=== PATIENT | female | born 1945 | race Caucasian/White ===

== ENCOUNTER 2019-06-27 08:47 | Emergency (ER) | payer MEDICARE, OTHER, SELFPAY ==
[2019-06-27 08:49] VITALS: BP 117/70; PULSE 99; RESP 16; TEMP 36.2; O2SAT 96; BMI 25.7
--- NOTE | 2019-06-27 09:05 | RAD_ITS ---
STUDY: X-RAY - RIGHT ANKLE REASON FOR EXAM: Female, 73 years old. Leg pain TECHNIQUE: 3 view(s) of the ankle. COMPARISON: None. FINDINGS: Normal visualized distal tibia and fibula. Normal medial and lateral malleoli. Normal tibiotalar articulation and ankle mortise. Normal visualized talus and calcaneus. The visualized subtalar, talonavicular, calcaneocuboid and tarsal articulations are normal. Nonspecific lateral soft tissue swelling RAD/Ankle min 3 Views IMPRESSION: Normal x-ray examination of the ankle. Nonspecific lateral soft tissue swelling Electronically Signed: Dominic Mitchell MD at 9:22 EST , Service support ,
--- NOTE | 2019-06-27 09:06 | ED.DCSUM_ITS ---
History of Present Illness Chief Complaint: Lower Extremity Injury Informant: Patient Onset: Days Context: Gradual Onset Timing: Continuous Current Severity: Moderate Maximum Severity: Moderate Narrative: Patient is a 73-year-old female with history of neuropathy and diabetes mellitus presenting with right ankle pain and swelling. Patient states on , 3 days ago, her foot slightly slipped at the grocery store. She did start having swelling on the lateral aspect of her ankle. She notes that she had been using elevation and rest and the swelling/pain had improved. Then last night when she was at the [facility] she had a sharp stabbing pain behind her ankle that radiated up. After that she has had significantly more pain of the ankle. The swelling has increased. Patient states she has peripheral neuropathy but that is unchanged. Pain is worse when she tries to walk. She placed CBD oil on the ankle with no significant relief. She states she cannot take Tylenol, Motrin or any other [id number] medications. She has been wrapping her ankle. She has pain with movement but is still able to walk. She denies any other complaints at this time. Past Medical History - Allergies and Home Meds Allergies/Adverse Reactions: Allergies bee venom protein (honey bee) Allergy (Verified 06/27/19 08:56) Rash Iodine and Iodide Containing Produc Allergy (Verified 06/27/19 08:56) Unknown lisinopril Allergy (Verified 06/27/19 08:56) Rash Penicillins Allergy (Verified 06/27/19 08:56) Unknown shellfish derived Allergy (Verified 06/27/19 08:56) Other ciprofloxacin [From Cipro] Adverse Reaction (Verified 06/27/19 08:56) Diarrhea clindamycin Adverse Reaction (Verified 06/27/19 08:56) Diarrhea glimepiride Adverse Reaction (Verified 06/27/19 08:56) Other MAKES ME DRUNK Sulfa (Sulfonamide Antibiotics) Adverse Reaction (Verified 06/27/19 08:56) Diarrhea Primary Care Physician: Aaron Harper MD [Primary Care Provider] - Past Medical History: - - Diabetes, neuropathy, CKD Surgical History: noncontributory Review of Systems All systems negative except as indicated Musculoskeletal: Reports: - - Right ankle pain and swelling Physical Exam Vital Signs/Narrative: Vital Signs Temp Pulse Resp BP Pulse Ox 06/27/19 08:49 97.2 F L 99 16 117/70 96 Inital Vital Signs reviewed: Yes General: Well nourished, Well developed, No Acute Distress Head: Normocephalic, Atraumatic Eyes: Perrl, EOMI ENT: Moist mucous membranes, No rhinorrhea Neck: Supple, Nontender Cardiovascular: Regular rate, Regular rhythm, - - 2+ bilateral DP pulses Respiratory: No distress Back: Nontender, Normal Inspection Extremities: Tenderness - Tender to palpation of the right lateral malleolus most pronounced at the inferior aspect with associated edema, - - Normal Cisneros test, no tenderness palpation at the base of the fifth and fourth metatarsals, no obvious deformity, no tenderness palpation at the fibular head. Negative for: Calf Tenderness Skin: Normal color, No rash Neurological: Alert, Oriented x3, Cranial nerves II-XII grossly intact, Normal Strength, Normal Sensation, - - Normal plantar and dorsiflexion, mild resting tremor Psychological: Normal affect, Normal Mood Diagnostic/Tx/Re-eval Clinical Impression(s) from Imaging Studies Ankle X-Ray 06/27/19 09:05 IMPRESSION: Normal x-ray examination of the ankle. Nonspecific lateral soft tissue swelling Electronically Signed: Dominic Mitcehll MD at 9:22 EST , Service support , - Medical Decision Making She is evaluated for right ankle pain and swelling. She had an injury 3 days ago. The pain is slightly improved yesterday but was worse today. It is worse when she tries to walk or dorsiflex her foot. Achilles tendon mechanism appears to be intact at the bedside. She does not have any significant tenderness over the Achilles tendon. She does have a lot of tenderness over the lateral malleolus as well as soft tissue swelling. No deformity. X-ray does not show any acute process. I suspect patient's pain is likely from her edema, likely recent strain as well as her chronic neuropathy. Patient states that she cannot have any medication for pain including Tylenol and Motrin. Her pain is not too severe and she is able to ambulate so I do not think she requires something stronger like [place] or Percocet. She is neurovascular intact. She is placed in an air stirrup for support and counseled on rice therapy. She is instructed to follow-up with her primary care provider if this worsens or does not improve within the next few days. Patient is counseled on signs and symptoms requiring return to the emergency room. Patient verbalizes agreement and understand this plan. Patient discharged home in stable and improved condition. ED Disposition - Plan for ED Patient: Disposition: Home or Assisted Living Diagnosis: Right ankle sprain Instructions: Sprain, Ankle, with X-Ray Referrals: Aaron Harper MD [Primary Care Provider] - Additional Instructions: If no improvement, follow-up at your primary care office this week. Use rice therapy: rest, ice, compression and elevation. You can use topical creams for pain. Return if your symptoms worsen or progress.
== END 2019-06-27 10:09 | disposition home or self-care (01) ==
PROVIDERS: Emergency Provider Emergency Medicine; Family Provider Family Medicine; PCP Family Medicine
DX: S93.401A Sprain of unspecified ligament of right ankle, initial encounter (principal); E11.40 Type 2 diabetes mellitus with diabetic neuropathy, unspecified; E11.22 Type 2 diabetes mellitus with diabetic chronic kidney disease; N18.9 Chronic kidney disease, unspecified; W18.40XA Slipping, tripping and stumbling without falling, unspecified, initial encounter; Y93.01 Activity, walking, marching and hiking; Y92.512 Supermarket, store or market as the place of occurrence of the external cause; Y99.8 Other external cause status
CPT/HCPCS: 73610; 99283

== ENCOUNTER 2019-10-22 00:57 | Emergency (ER) | payer MEDICARE, OTHER, SELFPAY ==
[2019-08-20 08:59] VITALS: BMI 25.2
[2019-10-22 00:59] VITALS: BP 158/61; PULSE 66; RESP 18; TEMP 36.7; O2SAT 98; BMI 23.8
--- NOTE | 2019-10-22 01:03 | CT_ITS ---
HISTORY: LEFT SIDE FLANK PAIN. H/O KIDNEY STONES. STAGE 3 CHRONIC KIDNEY FAILURE. SX/ LINDSAY. ADDITIONAL HISTORY: None provided. TECHNIQUE: CT images were obtained of the abdomen and pelvis without IV contrast. Enteric contrast was not given. Number of images including paperwork: [id number]. A radiation dose optimization technique was used for this scan. COMPARISON: None FINDINGS: Evaluation of the abdominopelvic organs is limited in the absence of contrast. LOWER THORAX: No consolidation or pleural effusion. Mild linear basilar atelectasis versus scarring. Coronary calcification. LIVER: Cirrhosis. GALLBLADDER: No radiopaque calculi. BILE DUCTS: No significant biliary dilatation. SPLEEN: Unremarkable. PANCREAS: Unremarkable. ADRENAL GLANDS: Unremarkable. KIDNEYS/URETERS: Mild left hydronephrosis secondary to a 1-2 mm proximal ureteral calculus. Left perinephric fluid/stranding may be related to obstruction; correlate for superimposed infection. BOWEL: No bowel obstruction. No significant bowel wall thickening. No localized inflammation. APPENDIX: Normal. FREE FLUID: No significant free fluid. FREE AIR: None. LYMPH NODES: No pathologic appearing adenopathy. PERITONEUM, RETROPERITONEUM AND MESENTERY: Otherwise unremarkable. VASCULATURE: Atherosclerotic calcification. Ectatic infrarenal abdominal aorta, 2.9 x 2.6 cm Ectatic right distal common iliac artery measuring 18 mm. ABDOMINAL WALL: Unremarkable. PELVIS: Unremarkable bladder. 3.3 cm left ovarian cyst. Hysterectomy. OSSEOUS AND SOFT TISSUE STRUCTURES: No acute skeletal findings. Degenerative changes. CT/Abdomen/Pelvis without Cont IMPRESSION: 1. Obstructing left proximal ureteral calculus with mild hydronephrosis. Perinephric fluid/stranding may be related to obstruction; correlate for superimposed infection. 2. Cirrhosis. 3. Left ovarian cyst. 4. Additional findings above. Individualized dose optimization techniques were used for this CT. at 0224 Reported and signed by: Erica Soares MD Electronically Signed: Erica Soares MD at 2:24 EST Tel , Service support ,
[2019-10-22] MEDS: 0.9% Normal Saline 1,000 ML 1000 ML IV (01:13)
[2019-10-22] MEDS: Ondansetron 4 MG/2 ML Vial IV (01:13)
[2019-10-22] MEDS: Morphine 4 MG/ML Syringe IV (01:13)
[2019-10-22 01:20] LABS: Absolute Lymphocyte Count 2.36 X10^3/uL (0.83-4.51); Absolute Neutrophil Count 5.4 X10^3/uL (2.0-7.7); Basophil# 0.05 X10^3/uL; Basophil% 0.6 % (0-1); Eosinophil# 0.01 X10^3/uL; Eosinophils% 0.1 % (0-5); Hematocrit 37.1 % (37-47); Hemoglobin 11.9 g/dL (12.0-15.0); Lymphocyte # 2.36 X10^3/ul (4.0); Lymphocyte % 27.5 % (19-41); Mean Corp Hgb Conc 32.1 g/dL (32-36); Mean Corpuscular Volume 87.3 fL (81-99); Mean Platelet Vol. 10.8 fl (6.2-12.0); Monocyte# 0.69 X10^3/uL; Monocyte% 8.1 % (0-10); NRBC Flagged by Analyzer 0 % (0-5); Neutrophil # 5.42 X10^3/uL (2.7-7.7); Neutrophil % 63.2 % (47-70); Platelet Count 158 K/mm3 (150-450); RBC Distribution Width CV 12.6 % (11.6-14.6); RBC Distribution Width SD 40.3 fl (35.1-43.9); Red Blood Count 4.25 M/mm3 (4.2-5.4); White Blood Count 8.6 K/mm3 (4.4-11.0)
[2019-10-22 01:33] LABS: Anion Gap 5 (5-15); BUN 52 mg/dL (7-18); BUN/Creat Ratio 38.2 RATIO (10-20); Calcium,Total 9.7 mg/dL (8.5-10.1); Chloride 106 mmol/L (98-107); Creatinine, Serum 1.36 mg/dL (0.55-1.02); EST Glomerular Filtration Rate 41 mL/min (>60); Est Glom Filt Rate - Afr Amer 49 mL/min (>60); Estimated Creatinine Clearance 32.29 ml/min; Glucose 121 mg/dL (74-106); Potassium 3.6 mmol/L (3.5-5.1); Sodium Level 139 mmol/L (136-145)
[2019-10-22 02:25] LABS: Bacteria 0 SEEN /hpf (None Seen); Color, Urine Yellow (Yellow); Glucose, Dipstick Normal (Normal); Ketone-Dipstick Negative (Negative); Leukocyte Esterase-Dipstick Negative /ul (Negative); Mucous, Urine 0 SEEN /hpf (<or=2+); Nitrite-Dipstick Negative (Negative); Occult Blood-Urine 250 /ul (Negative); Protein-Dipstick 30 mg/dl (Negative); Urine Bilirubin Dipstick Negative (Negative); Urine Clarity Clear (Clear); Urine Urobilinogen Normal (Normal)
[2019-10-22 02:34] LABS: Red Blood Cells-Urine 50-100 SEEN /hpf (0-5)
[2019-10-22 02:35] LABS: Squamous Epithelial Cells - UA 0-5 SEEN /hpf (5-10); White Blood Cells 0 SEEN /hpf (0-5)
--- NOTE | 2019-10-22 02:50 | ED.DCSUM_ITS ---
- ER Visit Summary Date of Service: 10/22/19 Chief Complaint: Left side kidney stone History of Present Illness: The patient is a 73 F with left side back pain concerning for kidney stone. This started suddenly, prior to arrival. She has a history of kidney stones, years ago. Denies bleeding or other urinary symptoms. Denies any other associated issues. Patient also has a history of hypertension, chronic kidney disease, and cirrhosis of the liver. Physical Examination: Afebrile and vital signs unremarkable. Left CVA tenderness. Abdomen otherwise soft and nontender. Skin appears normal. Test Results: Hemoglobin 11.9. BUN 52 and creatinine 1.36. Glucose 121. Urinalysis shows blood but no infection. CT shows a 1 to 2 mm left proximal ureter stone with obstruction, 3.3 cm left ovarian cyst, cirrhosis, and other chronic/incidental findings. Emergency Department Course and Treatment: Patient treated with fluids, morphine, and Zofran. She cannot take anti-inflammatories. On reevaluation, the patient is feeling better. Pain is 3 out of 10. I suspect her symptoms are related to the ureter stone. Patient will be referred to urology for follow-up. She was given a urine strainer. Will prescribe [place] and Zofran. Patient will also follow-up with her PCP regarding her ovarian cyst and her chronic conditions such as kidney disease and cirrhosis. Treatment Plan: As above Disposition: Discharge Impression: 1. Left ureteral colic 2. Left ovarian cyst 3. Cirrhosis 4. Chronic kidney disease This note was generated with Visualaseation software. It may contain incorrect words, spelling, and punctuation that were not noted in review of the chart prior to signing ED Disposition - Plan for ED Patient: Referrals: Aaron Harper MD [Primary Care Provider] -
[2019-10-22] MEDS: HYDROcodone Bitartrate/Apap 5/325 Tablet PO (02:52)
--- NOTE | 2019-10-22 02:54 | DCINST.ED_ITS ---
ED Disposition - Plan for ED Patient: Instructions: KIDNEY STONE w/ Colic Prescriptions: Hydrocodone Bitart/Apap 5-325 [Clarissa 5MG-325MG] 1 tab PO Q6H PRN PRN 3 Days #12 tab PRN Reason: Pain Prescription Printed Ondansetron [Zofran Odt] 4 mg PO Q8H PRN PRN #10 tab PRN Reason: Nausea Prescription Printed Referrals: Aaron Harper MD [Primary Care Provider] - Moiz Jimenez MD [STAFF PHYSICIAN] -
[2019-10-22 03:05] VITALS: BP 154/71; PULSE 87; RESP 16; O2SAT 98
== END 2019-10-22 03:06 | disposition home or self-care (01) ==
PROVIDERS: Emergency Provider Emergency Medicine; PCP Family Medicine
DX: N20.1 Calculus of ureter (principal); N83.202 Unspecified ovarian cyst, left side; K74.60 Unspecified cirrhosis of liver; I12.9 Hypertensive chronic kidney disease with stage 1 through stage 4 chronic kidney disease, or unspecified chronic kidney disease; N18.9 Chronic kidney disease, unspecified; Z72.0 Tobacco use; Z87.442 Personal history of urinary calculi; Z79.899 Other long term (current) drug therapy
CPT/HCPCS: 74176; 80048; 81001; 85025; 96374; 99284; J7030; J2405

== ENCOUNTER → 2019-10-28 | Outpatient (CLI) | payer MEDICARE, OTHER, SELFPAY ==
[2019-10-22 00:59] VITALS: BMI 23.8
--- NOTE | 2019-10-28 08:44 | CDU_ITS ---
Reason For Study: vertigo Rt. Velocities/BP Lt. Velocities/BP Prox CCA 54.2/14.6 cm/sec. Prox CCA 69.9/19.4 cm/sec. Mid CCA 64.0/14.6 cm/sec. Mid CCA 67.7/15.0 cm/sec. Dist CCA 48.7/12.4 cm/sec. Dist CCA 73.2/13.9 cm/sec. Prox ICA 58.6/15.7 cm/sec. Prox ICA 136.3/15.8 cm/sec. Mid ICA 57.5/16.8 cm/sec. Mid ICA 101.6/21.3 cm/sec. Dist ICA 80.6/21.2 cm/sec. Dist ICA 71.5/21.4 cm/sec. Rt. ICA/CCA = 1.3. Lt. ICA/CCA = 2.0. Prox ECA 112.1/11.4 cm/sec. Prox ECA 192.4/5.8 cm/sec. Rt. Vert. 56.7/10.6 cm/sec. Lt. Vert. 59.2/14.8 cm/sec. Right Extracranial There is heterogeneous, irregular atherosclerotic plaque noted in the right common carotid artery. There is heterogeneous, irregular atherosclerotic plaque noted in the right internal carotid artery. There is heterogeneous, irregular atherosclerotic plaque noted in the right external carotid artery. Antegrade flow is noted in the right vertebral artery. Left Extracranial There is heterogeneous, irregular atherosclerotic plaque noted in the left common carotid artery. There is heterogeneous, irregular atherosclerotic plaque noted in the left internal carotid artery. There is heterogeneous, irregular atherosclerotic plaque noted in the left external carotid artery. Antegrade flow is noted in the left vertebral artery. Procedure Carotid Duplex 39785. The exam was diagnostic. Exam performed in department. Interpretation Summary Irregular plague at the proximal right internal and external carotid arteries <50% stenosis right internal carotid <50% stenosis right external carotid Irregular calcific plague at the proximal left internal and external carotids 50-69% stenosis left internal carotid <50% stenosis left external carotid Patent, antegrade vertebrals bilaterally Ordering Physician: Jimbo Zepeda Performed By: Tereso Hansen RVT
== END | disposition home or self-care (01) ==
PROVIDERS: PCP Family Medicine; Referring Provider Nurse Practitioner Family; Visit Provider Nurse Practitioner Family
DX: I65.23 Occlusion and stenosis of bilateral carotid arteries (principal); N20.1 Calculus of ureter
CPT/HCPCS: 87086; 87088; 93880

== ENCOUNTER → 2019-11-09 | Outpatient (CLI) | payer MEDICARE, OTHER, SELFPAY ==
[2019-10-22 00:59] VITALS: BMI 23.8
--- NOTE | 2019-11-09 11:00 | CT_ITS ---
STUDY: CT ABDOMEN AND PELVIS WITHOUT CONTRAST REASON FOR EXAM: Female, 74 years old. LLQ PAIN. UTERUS REMOVED BUT STILL HAS OVARIES RADIATION DOSAGE (If Supplied By Facility): CTDIvol = ( 6.32 ) mGy, DLP = ( 293.78 ) mGycm TECHNIQUE: Transaxial images were obtained from the dome of the diaphragm to the symphysis pubis without oral contrast, and without intravenous contrast. Sagittal and coronal images were reconstructed. Individualized dose optimization techniques were used for this CT. COMPARISON: Comparison is made with prior examination dated October 22, 2019. FINDINGS: Stable increased linear markings at the left lung base suggestive of scarring. Coronary artery calcification. Normal liver. Normal gallbladder and extrahepatic biliary system. Normal spleen. Normal pancreas. Normal bilateral adrenal glands. Normal right kidney. Normal left kidney. Normal visualized stomach. Normal small intestine. Normal colon. The appendix is visualized and appears normal. There is diffuse atherosclerotic calcification of the abdominal aorta and major visceral branches, without a demonstrated aneurysm. Normal inferior vena cava. Normal retroperitoneum. Normal urinary bladder. There is absence of the uterus consistent with a prior hysterectomy. There is a 3.7 cm x 3.2 cm cystic density in the left ovary. The medial wall is thickened and irregular. A neoplastic process should be ruled out. Normal abdominal wall. There are diffuse degenerative changes of the visualized lumbar spine. CT/Abdomen/Pelvis without Cont IMPRESSION: Stable 3.7 cm x 3.2 cm cystic density in the left ovary. The medial wall is slightly thickened and irregular. Correlation with ultrasound is recommended. The previously seen left-sided hydronephrosis has resolved. Electronically Signed: Kamlesh Rhodes, at 11:38 EDT , Service support ,
== END | disposition home or self-care (01) ==
LOC: CT 10:57
PROVIDERS: PCP Family Medicine; Referring Provider Urology; Visit Provider Urology
DX: R10.32 Left lower quadrant pain (principal)
CPT/HCPCS: 74176

== ENCOUNTER → 2019-11-11 | Outpatient (CLI) | payer MEDICARE, OTHER, SELFPAY ==
[2019-10-22 00:59] VITALS: BMI 23.8
[2019-11-15 13:09] LABS: Cancer Antigen 125 15.3 U/mL (0.0-38.1)
== END | disposition home or self-care (01) ==
LOC: LABSPEC 13:31
PROVIDERS: PCP Family Medicine; Visit Provider Obstetrics & Gynecology
DX: N83.202 Unspecified ovarian cyst, left side (principal); R10.32 Left lower quadrant pain; Z90.710 Acquired absence of both cervix and uterus
CPT/HCPCS: 86304

== ENCOUNTER → 2020-02-16 | Outpatient (CLI) | payer MEDICARE, OTHER, SELFPAY ==
[2020-01-20 09:24] VITALS: BMI 22.3
[2020-02-18 00:50] LABS: Cancer Antigen 125 16.5 U/mL (0.0-38.1)
== END | disposition home or self-care (01) ==
LOC: WOBLAB 11:04
PROVIDERS: PCP Family Medicine; Visit Provider Obstetrics & Gynecology
DX: N83.202 Unspecified ovarian cyst, left side (principal)
CPT/HCPCS: 36415; 86304

== ENCOUNTER 2020-04-07 21:30 | Emergency (ER) | payer MEDICARE, OTHER, SELFPAY ==
[2020-01-20 09:24] VITALS: BMI 22.3
[2020-04-07 21:31] VITALS: BP 179/78; PULSE 71; RESP 16; TEMP 36.3; O2SAT 97; BMI 21.1
--- NOTE | 2020-04-07 21:43 | RAD_ITS ---
STUDY: X-RAY - RIGHT FOOT CLINICAL: Female, 74 years old. PT DROPPED A METAL CHAIR ON HER RIGHT FOOT. PAIN SWELLING AND BLEEDING TO THE TOP LATERAL SIDE OF FOOT. TECHNIQUE: view(s) of the foot. COMPARISON: None. FINDINGS: Normal talus, calcaneus, and tarsal bones. Normal visualized subtalar, talonavicular, calcaneocuboid, tarsal and tarsometatarsal articulations. Normal metatarsi. Normal metatarsophalangeal joint of the great toe. Normal tibial and fibular sesamoid bones. Normal interphalangeal joint of the great toe. Normal phalanges of the great toe. Normal second through fifth metatarsophalangeal joints. Normal interphalangeal joints and phalanges of the lesser toes. Soft tissue swelling. RAD/Foot min 3 Views IMPRESSION: Soft tissue injury without underlying fracture, dislocation or foreign body. Electronically Signed: Brook Lynn MD at 21:57 EDT , Service support ,
--- NOTE | 2020-04-07 22:17 | ED.VIS.LOWEX ---
History of Present Illness Chief Complaint: Lower Extremity Injury Informant: Patient Occurred: Today Mechanism/Context: Injury Context: Sudden Onset Timing: Continuous Quality of Pain: - - sore Location: right foot Current Severity: Mild Maximum Severity: Moderate Worsened by: walking Relieved by: resting Associated Symptoms: Negative for: Parasthesia, Weakness, Loss of Funtion Narrative: Patient states she accidentally dropped a folded up folding chair on her right foot. It swelled and bruised very quickly but she states the pain has not been severe. She has been able to walk. She scraped it and it bled but that is stopped now and she denies any other injury. She is on no anticoagulants. - Past Medical History (1) Anemia Status: Chronic (2) Bilateral carotid artery stenosis Status: Chronic (3) Diabetes mellitus Status: Chronic (4) Essential (primary) hypertension Status: Chronic Past Medical History - Allergies and Home Meds Allergies/Adverse Reactions: Allergies bee venom protein (honey bee) Allergy (Verified 04/07/20 21:33) Rash fluconazole Allergy (Verified 04/07/20 21:33) heart racing Iodine and Iodide Containing Produc Allergy (Verified 04/07/20 21:33) Unknown lisinopril Allergy (Verified 04/07/20 21:33) Rash Penicillins Allergy (Verified 04/07/20 21:33) Unknown shellfish derived Allergy (Verified 04/07/20 21:33) Other ciprofloxacin [From Cipro] Adverse Reaction (Verified 04/07/20 21:33) Diarrhea clindamycin Adverse Reaction (Verified 04/07/20 21:33) Diarrhea glimepiride Adverse Reaction (Verified 04/07/20 21:33) Other MAKES ME DRUNK Sulfa (Sulfonamide Antibiotics) Adverse Reaction (Verified 04/07/20 21:33) Diarrhea Primary Care Physician: Aaron Harper MD [Primary Care Provider] - As Needed Surgical History: noncontributory Lives: Alone Smoking Status: Current every day smoker Review of Systems Musculoskeletal: Reports: Extremity Pain Skin: Reports: Abrasions, Wounds Neurological: Denies: Headache, Weakness, Numbness Physical Exam Vital Signs/Narrative: Vital Signs Temp Pulse Resp BP Pulse Ox 04/07/20 21:31 97.4 F L 71 16 179/78 H 97 Inital Vital Signs reviewed: Yes - Extremity Exam Right Foot: Contusion, Hematoma - With tenderness, dorsum of foot at the peroneal aspect. Overlying superficial minor abrasion with no active bleeding.. Negative for: Deformity, Limited ROM General: Well nourished, Well developed, - - Well-appearing no distress Head: Normocephalic, Atraumatic Skin: Normal color, No rash, Trauma - Contusion/hematoma dorsal right foot. See above. Minor abrasion as well. No other lesions or apparent injuries. Neurological: Alert, Oriented x3, Cranial nerves II-XII grossly intact, Normal Strength, Normal Sensation Psychological: Normal affect, Normal Mood Diagnostic/Tx/Re-eval Clinical Impression(s) from Imaging Studies Foot X-Ray 04/07/20 21:43 IMPRESSION: Soft tissue injury without underlying fracture, dislocation or foreign body. Electronically Signed: Brook Lynn MD at 21:57 EDT , Service support , - Medical Decision Making X-rays are unremarkable. There is no need for repair of anything here, her abrasion was dressed with a bandage and bacitracin, she states she is able to walk okay, given appropriate discharge instructions as well as an ice pack. ED Disposition - Plan for ED Patient: Disposition: Home or Assisted Living Diagnosis: Traumatic hematoma of right foot Instructions: ED FOOT CONTUSION Referrals: Aaron Harper MD [Primary Care Provider] - As Needed
[2020-04-07 22:18] VITALS: BP 140/63; PULSE 60; RESP 16; O2SAT 97
== END 2020-04-07 22:33 | disposition home or self-care (01) ==
PROVIDERS: Emergency Provider Emergency Medicine; PCP Family Medicine
DX: S90.31XA Contusion of right foot, initial encounter (principal); I10 Essential (primary) hypertension; E11.9 Type 2 diabetes mellitus without complications; F17.200 Nicotine dependence, unspecified, uncomplicated; W20.8XXA Other cause of strike by thrown, projected or falling object, initial encounter; Y93.89 Activity, other specified; Y92.89 Other specified places as the place of occurrence of the external cause; Y99.8 Other external cause status
CPT/HCPCS: 73630; 99282

== ENCOUNTER 2020-04-11 12:52 | Inpatient (IN) | payer MEDICARE, OTHER, SELFPAY ==
[2020-04-11 12:54] VITALS: BP 128/63; PULSE 71; RESP 16; TEMP 36.2; O2SAT 96; BMI 21.2
[2020-04-11 13:54] LABS: Absolute Lymphocyte Count 1.54 X10^3/uL (0.83-4.51); Absolute Neutrophil Count 5.6 X10^3/uL (2.0-7.7); Basophil# 0.03 X10^3/uL; Basophil% 0.4 % (0-1); Eosinophil# 0.01 X10^3/uL; Eosinophils% 0.1 % (0-5); Hematocrit 39.8 % (37-47); Hemoglobin 12.8 g/dL (12.0-15.0); Lymphocyte # 1.54 X10^3/ul (4.0); Lymphocyte % 20.1 % (19-41); Mean Corp Hgb Conc 32.2 g/dL (32-36); Mean Corpuscular Hgb 29.2 pg (27.0-32.0); Mean Corpuscular Volume 90.7 fL (81-99); Mean Platelet Vol. 11.6 fl (6.2-12.0); Monocyte# 0.49 X10^3/uL; Monocyte% 6.4 % (0-10); NRBC Flagged by Analyzer 0 % (0-5); Neutrophil # 5.57 X10^3/uL (2.7-7.7); Neutrophil % 72.7 % (47-70); Platelet Count 143 K/mm3 (150-450); RBC Distribution Width CV 13.6 % (11.6-14.6); RBC Distribution Width SD 45.9 fl (35.1-43.9); Red Blood Count 4.39 M/mm3 (4.2-5.4); White Blood Count 7.7 K/mm3 (4.4-11.0)
[2020-04-11 14:08] LABS: Anion Gap 3 (5-15); BUN 34 mg/dL (7-18); BUN/Creat Ratio 27.2 RATIO (10-20); Calcium,Total 9.3 mg/dL (8.5-10.1); Chloride 107 mmol/L (98-107); Creatinine, Serum 1.25 mg/dL (0.55-1.02); EST Glomerular Filtration Rate 45 mL/min (>60); Est Glom Filt Rate - Afr Amer 54 mL/min (>60); Estimated Creatinine Clearance 34.61 ml/min; Glucose 163 mg/dL (74-106); Potassium 4.2 mmol/L (3.5-5.1); Sodium Level 141 mmol/L (136-145)
--- NOTE | 2020-04-11 14:50 | ED.VISSUMM ---
- ER Visit Summary Date of Service: 04/11/20 Chief Complaint: [Redness and swelling to right foot] History of Present Illness: The patient is a 74 F [presents to the emergency department with an injury to the right foot that occurred 4 days ago. Patient states that she dropped a metal chair on her foot 4 days ago and was seen in the emergency department where she had x-rays that did not show any fractures. Patient states that subsequently the foot is become red and swollen and quite painful. Patient was seen in urgent care yesterday and started on doxycycline because she has multiple drug allergies to antibiotics. Patient had the area of erythema outlined in marker and now it has spread beyond the outline. Patient was told to come to the emergency department if that were to happen. Patient continues to have severe pain with walking. She denies fevers or chills.] Physical Examination: [HEENT-PERRLA, EOMI. Cranial nerves II through XII grossly intact. TMs clear. Mucous membranes moist. No adenopathy. Cardiovascular-regular rate and rhythm without murmur or ectopy Lungs-clear to auscultation, chest wall stable without crepitus or subcu emphysema Abdomen-normoactive bowel sounds, soft, nontender, no rebound or rigidity, no peritoneal signs. Extremities-intact ?4, normal range of motion, normal pulses. Right foot-patient has diffuse soft tissue swelling and ecchymosis to the foot. Over the dorsal lateral aspect of the foot she has an area of soft tissue fluctuance measuring approximately 5 cm in diameter with some skin excoriation that appears now to be somewhat black and eschar-like in appearance. Patient has diffuse cellulitis of the foot. She is got normal pulses.] Test Results: [CBC with it was normal. Chemistries unremarkable.] Emergency Department Course and Treatment: [Patient started on vancomycin 750 mg IV. Case was discussed with patient's food preservation scientist Dr. Wild Naranjo who recommended admission for IV antibiotics and MRI of the foot. Patient will be seen by him in consultation and he suspects he will need to surgically debride the wound and possibly apply a wound VAC.] I suspect patient may have a infected hematoma of the foot with the surrounding cellulitis. Treatment Plan: [Admit] Disposition: [Admit] Impression: [Right foot cellulitis-failed outpatient therapy.] This note was generated with Dragon dictation software. It may contain incorrect words, spelling, and punctuation that were not noted in review of the chart prior to signing ED Disposition - Plan for ED Patient: Referrals: Aaron Harper MD [Primary Care Provider] -
--- NOTE | 2020-04-11 15:06 | PCM.HP.STD ---
Problem List (1) Cellulitis of right foot Status: Acute (2) Hyperlipidemia Status: Chronic (3) Stage III chronic kidney disease Status: Chronic (4) Type 2 diabetes mellitus Status: Chronic (5) Traumatic hematoma of right foot Status: Acute (6) Essential (primary) hypertension Status: Chronic History of Present Illness Date of Admission: 04/11/20 Chief Complaint: Right foot pain, swelling and redness. The patient is a 74 year old F with past medical history as mentioned above presented to the emergency room because of right foot pain, swelling and redness. Her illness started this past Friday when she dropped a chair on her right foot and she came to the emergency department same day, had an x-ray done that showed no fractures and she was sent home. 1 day later, she started having right foot pain, dull aching pain, around 6 out of 10 in severity, persistent, aggravated by walking on her right foot, associated with increasing swelling and redness of the right foot and without relieving factor. She had a small abrasion on the lateral aspect of the right foot. Yesterday morning, she went to urgent care and she was given prescription for doxycycline and instructed to come to the emergency department if the swelling and redness of the foot did not improve. She continued to have increasing pain, swelling and redness of the right foot and she came to the emergency department today. She denied fever or chills. In the emergency department, her vital signs were stable, was afebrile. Her routine blood work was remarkable for BUN of 34, creatinine of 1.25, otherwise unremarkable. She had an x-ray of the right foot done on April 07, 2020 that showed soft tissue injury without underlying fracture or foreign body. She is being admitted for acute right foot scleritis, acute traumatic right foot hematoma probably infected. 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 lesion G93.9 CKD (chronic kidney disease) N18.9 Cataract H26.9 Glaucoma H40.9 Peptic ulcer K27.9 Tremor R25.1 Type 2 diabetes mellitus E11.9 MGUS (monoclonal gammopathy of unknown significance) D47.2 Allergies bee venom protein (honey bee) Allergy (Verified 04/11/20 12:54) Rash fluconazole Allergy (Verified 04/11/20 12:54) heart racing Iodine and Iodide Containing Produc Allergy (Verified 04/11/20 12:54) Unknown lisinopril Allergy (Verified 04/11/20 12:54) Rash Penicillins Allergy (Verified 04/11/20 12:54) Unknown shellfish derived Allergy (Verified 04/11/20 12:54) Other ciprofloxacin [From Cipro] Adverse Reaction (Verified 04/11/20 12:54) Diarrhea clindamycin Adverse Reaction (Verified 04/11/20 12:54) Diarrhea glimepiride Adverse Reaction (Verified 04/11/20 12:54) Other MAKES ME DRUNK Sulfa (Sulfonamide Antibiotics) Adverse Reaction (Verified 04/11/20 12:54) Diarrhea Home Medications: Ambulatory Orders Medication Instructions Recorded Bacillus Coagulans [Probiotic] 1 ea PO DAILY 06/27/19 Cholecalciferol (VIT D3) [Vitamin 1,000 unit PO DAILY 06/27/19 D] Vitamin B Complex 1 ea PO DAILY 06/27/19 epinephrine 0.3 mg/0.3 mL 0.3 ml IM ONCE 07/21/19 injection, auto-injector Vitamin E 400 unit PO DAILY 10/22/19 rosuvastatin 20 mg tablet 20 mg PO DAILY #30 tab 10/29/19 metoprolol succinate 50 mg 150 mg PO DAILY tab 01/20/20 tablet,extended release 24 hr alprazolam 0.5 mg tablet 0.5 mg PO BID PRN tab 01/21/20 amlodipine 2.5 mg tablet 2.5 mg PO DAILY #90 tab 02/03/20 Doxycycline 100 mg PO BID 04/11/20 Surgical History: Surgical History (Last Reviewed 04/11/20 @ 15:[address] Farzana Lilly MD) H/O total hysterectomy Z90.710 History of laminectomy Z98.890 History of tonsillectomy Z90.89 Surgical History: hysterectomy, tonsillectomy, - - Laminectomy. Psychiatric History: No pertinent psych hx Lives: With Family Smoking Status: Light Smoker (<10/day) Tobacco Use: Cigarettes Alcohol: None Drugs: None - *Family History Maternal History Items: No pertinent history Paternal History Items: No pertinent history Review of Systems Constitutional: Denies: Anorexia, Chills, Fever, Weakness Eyes: Denies: Blurred vision, Double vision, Drainage, Redness HEENT: Denies: Difficulty Hearing, Ear Pain, Eye Pain, Nasal Congestion, Sore Throat Cardiovascular: Denies: Chest Pain, Chest Pressure, Edema, Heaviness, Light Headedness, Palpitations, Syncope Respiratory: Denies: Cough, Pleuritic Pain, Shortness of Breath, Sputum production, Wheezing Gastrointestinal: Denies: Abdominal Pain, Constipation, Diarrhea, Nausea, Vomiting Genitourinary: Denies: Dysuria, Frequency, Hematuria Musculoskeletal: Reports: Foot Pain. Denies: Arm Pain, Back Pain Skin: Denies: Dryness, Rash Neurological: Denies: Balance problems, Double vision, Change in Speech, Slurred speech, Confusion, Incoordination, Numbness, Tingling Psychiatric: Denies: Anxiety, Depression Endocrine: Denies: Change in Body Habitus, Polydipsia, Polyuria VTE Information - Inpt Only VTE Present on Admission: No VTE Mechan Device Prophylaxis: None VTE Pharm Prophylaxis ordered?: Yes Patient Problems: Active and Suspected Problems (Last Updated 01/20/20 @ 09:40 by Jimbo Zepeda USER INTERFACE ARTIST-C) Cellulitis of right foot (Acute) - Physical Exam Vitals/I&O's: Vital Signs Temp Pulse Resp BP Pulse Ox 97.1 F L 71 16 128/63 H 96 04/11/20 12:54 04/11/20 12:54 04/11/20 12:54 04/11/20 12:54 04/11/20 12:54 Oxygen Delivery Method Room Air Weight: 124 lb Body Mass Index (BMI) 21.2 General: Alert, Oriented x3, Cooperative, No apparent distress HEENT: Atraumatic, PERRLA, EOMI, Normocephalic Oral: Moist Mucosa, No Gingival or Mucosal Lesions/ Ulcerations Neck: Supple, No JVD, Negative Carotid Bruits, Trachea Midline, Thyroid Normal Size and Texture Lungs: Clear to auscultation, Normal air movement, No rhonchi, No wheeze, No rales Cardiovascular: Regular rate, Regular Rhythm, Normal S1, Normal S2, PMI Normal Abdomen: Bowel Sounds Present, Soft, Non Tender, Non-Distended, No Hepato-splenomegaly Extremities: No clubbing, No cyanosis, No edema, - - Right foot: Significant erythema and swelling of the right foot extending up to the around right ankle, dry small wound on the lateral aspect of the right foot, no drainage. Skin: No rashes, Ulcer/ Wound Lymphatic: No Cervical, Supraclavicular, or Inguinal Adenopathy Neurological: Cranial nerves II-XII grossly intact, Motor Exam 5/5 strength throughout Psych/Mental Status: Normal Affect, Appropriate, Alert and oriented to time, place, person, mood and affect Laboratory Results 04/11/20 13:47: WBC 7.7, RBC 4.39, Hgb 12.8, Hct 39.8, MCV 90.7, MCH 29.2, MCHC 32.2, RDW Std Deviation 45.9 H, RDW Coeff of Violet 13.6, Plt Count 143 L, MPV 11.6, Immature Gran % (Auto) 0.300, Neut % (Auto) 72.7 H, Lymph % (Auto) 20.1, Pierce % (Auto) 6.4, Eos % (Auto) 0.1, Baso % (Auto) 0.4, Absolute Neuts (auto) 5.6, Absolute Lymphs (auto) 1.54, Nucleated RBC % 0 04/11/20 13:47: Sodium 141, Potassium 4.2, Chloride 107, Carbon Dioxide 31.0, Anion Gap 3 L, BUN 34 H, Creatinine 1.25 H, Estim Creat Clear Calc 34.61, Est GFR (MDRD) Af Amer 54 L, Est GFR (MDRD) Non-Af 45 L, BUN/Creatinine Ratio 27.2 H, Glucose 163 H, Calcium 9.3 Assessment/Plan All Active Problems (Last Updated 01/20/20 @ 09:40 by Jimbo Zepeda, USER INTERFACE ARTIST-C) Cellulitis of right foot (Acute) Traumatic hematoma of right foot (Acute) This is a 74 years old female patient presented to the emergency room because of increasing right foot pain, swelling and redness after she dropped a chair on her right foot, found to have acute cellulitis of the right foot with acute traumatic right foot hematoma probably infected which did not improve with doxycycline that was started yesterday as outpatient. #1 acute right foot cellulitis/traumatic right foot hematoma probably infected: She had an x-ray done on April 07, 2020 that showed no acute fractures, showed soft tissue injury. No evidence of sepsis or severe sepsis. Vital signs are stable. ER physician discussed the case with podiatry medicine and recommended MRI foot and IV antibiotics. Plan: Admit to [facility] floor, gentle IV fluids for hydration with Ringer's lactate as patient reported allergy to normal saline???, IV morphine PRN for pain, Tylenol PRN, OxyIR PRN, Zofran PRN, ESR, CRP, check pro time and INR, MRI right foot without contrast, podiatry medicine consult, start IV vancomycin, MRSA nasal screen, repeat CBC and BMP tomorrow morning, preoperative chest x-ray and EKG, PT OT evaluation and treatment. #2 type 2 diabetes mellitus: Diet-controlled according to the patient. Her sugar has been under control. Plan: Accu-Cheks, insulin sliding scale, check hemoglobin A1c. #3 hypertension: Blood pressure stable, continue Norvasc and metoprolol. #4 stage III chronic kidney disease: According to the patient, creatinine has been around 1.2 to 1.4 mg/dL. Admission creatinine is 1.25, stable at baseline. #5 hyperlipidemia: Continue statins. #6 essential tremors: Continue alprazolam twice daily. #7 DVT prophylaxis: Subcu heparin twice daily. This note was generated with Stardoll dictation software. It may contain incorrect words, spelling, and punctuation that were not noted in checking the note before signing. Inpatient E&M: 05487 Init Hosp L3
--- NOTE | 2020-04-11 15:07 | NURSING ---
321 ASHELFAH RT FOOT CELLULITIS, POSSIBLE TRAUMATIC HEMATOMA
[2020-04-11 15:10] VITALS: BP 136/58; PULSE 60; RESP 16; TEMP 36.6; O2SAT 98
--- NOTE | 2020-04-11 15:45 | EKG12_ITS ---
Test Reason : AM EKG Blood Pressure : / mmHG Vent. Rate : 065 BPM Atrial Rate : 065 BPM P-R Int : 162 ms QRS Dur : 078 ms QT Int : 432 ms P-R-T Axes : 000 -35 -14 degrees QTc Int : 449 ms Normal sinus rhythm Left axis deviation Abnormal ECG No previous ECGs available Confirmed by VERÓNICA GAVIN ([id number]), content editor HARESH ORO ([id number]) on 04/20/2020 9:07:34 AM Referred By: EUGENE Confirmed By:VERÓNICA GAVIN
--- NOTE | 2020-04-11 15:45 | MRI_ITS ---
STUDY: MRI RIGHT MIDFOOT REASON FOR EXAM: Female, 74 years old. superior/lateral RIGHT foot cellulitis s/p crushing injury x 3 days ago, diabetes TECHNIQUE: Standardized fat and water weighted pulse sequences were obtained in all 3 orthogonal planes. COMPARISON: Right foot x-ray dated April 07, 2020 FINDINGS: Moderate subcutaneous edema is present over the dorsum of the foot. A moderate size subcutaneous hematoma measuring 4.56 cm is present over the dorsum and base of the fourth and fifth metatarsal bones. No visualized marrow edema or fractures. Normal talonavicular articulation. Normal calcaneocuboid articulation. Normal navicular-cuneiform articulations. Normal intercuneiform articulations. Normal first tarsometatarsal articulation. Normal Lisfranc ligament. Normal second and third tarsometatarsal articulations. Normal cuboid fourth and cuboid fifth tarsometatarsal articulation. Normal first through fifth metatarsi. Normal tibialis anterior tendon. Normal extensor hallucis longus tendon. Normal extensor digitorum longus tendons. Normal peroneus longus tendon and distal insertion. Normal peroneus brevis tendon and distal insertion. Normal intrinsic muscles of the mid and forefoot region. Normal extensor digitorum brevis muscle. MRI/Lower Ext/No Jt/w/o IMPRESSION: 1. Moderate subcutaneous edema is present over the dorsum of the foot. 2. A moderate size subcutaneous hematoma measuring 4.56 cm is present over the dorsum and base of the fourth and fifth metatarsal bones. 3. No visualized marrow edema or fractures. Electronically Signed: Dima Jamison MD at 20:42 EDT , Service support ,
[2020-04-11 15:51] VITALS: BMI 21.4
--- NOTE | 2020-04-11 15:53 | NURSING ---
wound photo: right foot
--- NOTE | 2020-04-11 15:56 | RAD_ITS ---
STUDY: X-RAY CHEST REASON FOR EXAM: Female, 74 years old. pre op TECHNIQUE: Single PA view of the chest. COMPARISON: None. FINDINGS: The lungs are clear and expanded. There is no demonstrated pleural abnormality. Normal size heart. Normal mediastinum and cordell. Normal visualized pulmonary arteries. There is atherosclerotic calcification of the aortic arch with tortuosity. Normal visualized thoracic spine. There is degenerative osteoarthritis of the bilateral shoulders. There is no demonstrated abnormality of the visualized soft tissue structures of the upper abdomen. RAD/Chest 1 View (Portable) IMPRESSION: Degenerative changes, as described above. No demonstrated acute cardiopulmonary process. Electronically Signed: Destini Patino, at 16:24 EDT Tel , Service support ,
[2020-04-11 16:08] VITALS: BMI 21.4
[2020-04-11 16:13] VITALS: BP 125/101; PULSE 61; RESP 20; TEMP 36.7; O2SAT 100
--- NOTE | 2020-04-11 16:28 | PCM.RX.CS ---
Consult Pharmacy has been consulted to manage selected antiobiotic: Vancomycin Type of Consult: New start Suspected Infection: Skin/Soft tissue Prior Doses of Antibiotics Received/Current Regimen: Medications Vancomycin 750mg IV q24h to begin 04/12/20 1400 Discontinued Medications Vancomycin HCl 750 mg/ Sodium (Chloride) 265 mls @ 250 mls/hr IV X1 ONE Stop: 04/11/20 14:43 Last Admin: 04/11/20 14:29 Dose: 250 mls/hr Documented by: Labs: Sodium 141 mmol/L (136-145) 04/11/20 13:47 Potassium 4.2 mmol/L (3.5-5.1) 04/11/20 13:47 Chloride 107 mmol/L (98-107) 04/11/20 13:47 Carbon Dioxide 31.0 mmol/L (21.0-32.0) 04/11/20 13:47 Anion Gap 3 (5-15) L 04/11/20 13:47 BUN 34 mg/dL (7-18) H 04/11/20 13:47 Creatinine 1.25 mg/dL (0.55-1.02) H 04/11/20 13:47 Est GFR (MDRD) Af Amer 54 mL/min (>60) L 04/11/20 13:47 Est GFR (MDRD) Non-Af 45 mL/min (>60) L 04/11/20 13:47 BUN/Creatinine Ratio 27.2 RATIO (10-20) H 04/11/20 13:47 Glucose 163 mg/dL (74-106) H 04/11/20 13:47 Goal Trough: 15-20 mcg/mL Pharmacy Plan for Drug Dosing: Pharmacy Service will continue to monitor and adjust dosing as required. Follow-Up Labs: Trough Vancomycin
[2020-04-11 16:32] LABS: CRP < 2.90 mg/L (0.0-3.0)
[2020-04-11] MEDS: Lactated Ringers 1,000 ML 60 ML IV (16:33)
[2020-04-11 16:50] LABS: International Normalized Ratio 1.1; Prothrombin Time (Protime)PT. 13.8 SECONDS (11.7-14.9)
[2020-04-11 16:55] LABS: Bedside Glucose 95 mg/dL (70-110)
[2020-04-11 17:12] LABS: Erythrocyte Sedimentation Rate 17 mm/hr (0-30)
--- NOTE | 2020-04-11 17:37 | NURSING ---
discussed covid testing and conversation w/ Dr. Naranjo and Dr. Lilly with primary RN.
--- NOTE | 2020-04-11 17:50 | PCM.RX.CS ---
Consult Pharmacy has been consulted to manage selected antiobiotic: Vancomycin Type of Consult: New start Suspected Infection: Skin/Soft tissue Prior Doses of Antibiotics Received/Current Regimen: received vancomycin 750mg IV x1 in E.R. starting at 14:29 today Labs: Sodium 141 mmol/L (136-145) 04/11/20 13:47 Potassium 4.2 mmol/L (3.5-5.1) 04/11/20 13:47 Chloride 107 mmol/L (98-107) 04/11/20 13:47 Carbon Dioxide 31.0 mmol/L (21.0-32.0) 04/11/20 13:47 Anion Gap 3 (5-15) L 04/11/20 13:47 BUN 34 mg/dL (7-18) H 04/11/20 13:47 Creatinine 1.25 mg/dL (0.55-1.02) H 04/11/20 13:47 Est GFR (MDRD) Af Amer 54 mL/min (>60) L 04/11/20 13:47 Est GFR (MDRD) Non-Af 45 mL/min (>60) L 04/11/20 13:47 BUN/Creatinine Ratio 27.2 RATIO (10-20) H 04/11/20 13:47 Glucose 163 mg/dL (74-106) H 04/11/20 13:47 Weight used for dosin.6 kg Estimated Creatinine Clearance: 34.6ml/min Goal Trough: 15-20 mcg/mL Pharmacy Plan for Drug Dosing: Continue with 750mg IV q24h, starting 24 hours from the initial E.R. dose. Will check a trough level before the 3rd dose on 04/13/20. Pharmacy Service will continue to monitor and adjust dosing as required. Follow-Up Labs: Trough Vancomycin Labs to be done on [date and time ordered]: 04/13/20 13:30
[2020-04-11] MEDS: 0.9% Saline Lock 10 ML Syringe IV (20:11)
[2020-04-11 20:23] VITALS: BP 140/69; PULSE 59; RESP 16; TEMP 36.4; O2SAT 97
[2020-04-11 22:06] LABS: Bedside Glucose 90 mg/dL (70-110)
--- NOTE | 2020-04-11 22:16 | PCM.CONS.GEN ---
Reason for Consult Date of Consultation: 04/11/20 Reason for Consultation: hematoma, right foot History of Present Illness: The patient is a 74 year old F who is currently admitted to the hospital with concern regarding cellulitis/infected hematoma of right foot. patient states that several weeks ago, a chair fell on her right foot. she presented to the emergency department and had xrays performed. xrays were negative for fracture. she states that over the past few days, she has developed redness to the right foot with increasing pain. she presented to the urgent care and was prescribed doxycycline. her pain and swelling have worsened prompting her to present to the ed. she has subsequently been admitted and placed on antibiotics. patient denies n/v/f/c. 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 Brain lesion G93.9 CKD (chronic kidney disease) N18.9 Cataract H26.9 Glaucoma H40.9 Peptic ulcer K27.9 Tremor R25.1 Type 2 diabetes mellitus E11.9 MGUS (monoclonal gammopathy of unknown significance) D47.2 Allergies bee venom protein (honey bee) Allergy (Verified 04/11/20 12:54) Rash fluconazole Allergy (Verified 04/11/20 12:54) heart racing Iodine and Iodide Containing Produc Allergy (Verified 04/11/20 12:54) Unknown lisinopril Allergy (Verified 04/11/20 12:54) Rash Penicillins Allergy (Verified 04/11/20 12:54) Unknown shellfish derived Allergy (Verified 04/11/20 12:54) Other ciprofloxacin [From Cipro] Adverse Reaction (Verified 04/11/20 12:54) Diarrhea clindamycin Adverse Reaction (Verified 04/11/20 12:54) Diarrhea glimepiride Adverse Reaction (Verified 04/11/20 12:54) Other MAKES ME DRUNK Sulfa (Sulfonamide Antibiotics) Adverse Reaction (Verified 04/11/20 12:54) Diarrhea Home Medications: Ambulatory Orders Medication Instructions Recorded Cholecalciferol (VIT D3) [Vitamin 1,000 unit PO DAILY 06/27/19 D] Vitamin B Complex 1 ea PO DAILY 06/27/19 epinephrine 0.3 mg/0.3 mL 0.3 ml IM ONCE 07/21/19 injection, auto-injector Vitamin E 400 unit PO DAILY 10/22/19 rosuvastatin 20 mg tablet 20 mg PO DAILY #30 tab 10/29/19 metoprolol succinate 50 mg 150 mg PO DAILY tab 01/20/20 tablet,extended release 24 hr alprazolam 0.5 mg tablet 0.5 mg PO BID PRN tab 01/21/20 amlodipine 2.5 mg tablet 2.5 mg PO DAILY #90 tab 02/03/20 Surgical History: Surgical History (Last Reviewed 04/11/20 @ 15:[address] Farzana Lilly MD) H/O total hysterectomy Z90.710 History of laminectomy Z98.890 History of tonsillectomy Z90.89 Surgical History: hysterectomy, tonsillectomy, - - Laminectomy. Psychiatric History: No pertinent psych hx Lives: With Family Smoking Status: Light Smoker (<10/day) Tobacco Use: Cigarettes Alcohol: None Drugs: None - *Family History Maternal History Items: No pertinent history Paternal History Items: No pertinent history Patient Problems: Active and Suspected Problems (Last Updated 01/20/20 @ 09:40 by Jimbo Zepeda NP-C) Cellulitis of right foot (Acute) Objective: patient is alert and orientated x 3. patient does not appear in any distress vascular: DP and PT pulses palpable to b/l lower extremity. CFT is brisk. skin temperature is warm to warm. erythema is noted to right foot. there is edema present to right foot. no calf pain. neuro: protective sensation is decreased to right foot. derm: there is black eschar along the midshaft of 4th and 5th metatarsal. the eschar is approximately 3 mm in diameter. there is superficial blister of right midfoot just distal to black eschar. there is pain to palpation of right midfoot. m/s: pain present to right midfoot. - Physical Exam Vitals/I&O's: Vital Signs Temp Pulse Resp BP Pulse Ox 97.6 F L 59 L 16 140/69 H 97 04/11/20 20:23 04/11/20 20:23 04/11/20 20:23 04/11/20 20:23 04/11/20 20:23 Oxygen Delivery Method Room Air Weight: 56.563 kg Body Mass Index (BMI) 21.4 Intake and Output for Last 24 Hours 04/09/20 04/10/20 04/11/20 23:59 23:59 23:59 Intake Total 565 / 565 Balance 565 / 565 Laboratory Results 04/11/20 13:47: WBC 7.7, RBC 4.39, Hgb 12.8, Hct 39.8, MCV 90.7, MCH 29.2, MCHC 32.2, RDW Std Deviation 45.9 H, RDW Coeff of Violet 13.6, Plt Count 143 L, MPV 11.6, Immature Gran % (Auto) 0.300, Neut % (Auto) 72.7 H, Lymph % (Auto) 20.1, [place] % (Auto) 6.4, Eos % (Auto) 0.1, Baso % (Auto) 0.4, Absolute Neuts (auto) 5.6, Absolute Lymphs (auto) 1.54, Nucleated RBC % 0 04/11/20 13:47: Sodium 141, Potassium 4.2, Chloride 107, Carbon Dioxide 31.0, Anion Gap 3 L, BUN 34 H, Creatinine 1.25 H, Estim Creat Clear Calc 34.61, Est GFR (MDRD) Af Amer 54 L, Est GFR (MDRD) Non-Af 45 L, BUN/Creatinine Ratio 27.2 H, Glucose 163 H, Calcium 9.3 04/11/20 13:47: ESR 17 04/11/20 13:47: PT 13.8, INR 1.1 04/11/20 13:47: C-React Prot Ext Range < 2.90 04/11/20 13:47: Hemoglobin A1c 6.0 H 04/11/20 16:28: POC Glucose 95 04/11/20 21:55: POC Glucose 90 Current Medications Acetaminophen (Tylenol) 650 mg PO Q6H PRN PRN PRN Reason: Pain Score 1-10/Temp > 100.7 F Alprazolam (Xanax) 0.5 mg PO BID PRN PRN Reason: ANXIETY Amlodipine Besylate (Norvasc) 2.5 mg PO DAILY [facility] Atorvastatin Calcium (Lipitor) 40 mg PO QHS [facility] Last Admin: 04/11/20 20:38 Dose: Not Given Documented by: Heparin Sodium (Porcine) (Heparin Na) 5,000 unit SC Q12 [facility] Lactated Ringer's () 1,000 mls @ 60 mls/hr IV .[id number] [facility] Stop: 04/13/20 01:04 Last Admin: 04/11/20 16:33 Dose: 60 mls/hr Documented by: Vancomycin HCl 750 mg/ Sodium (Chloride) 265 mls @ 250 mls/hr IV Q24H [facility] Insulin Human Lispro (Humalog Kwikpen (Bkc)) 0 unit SC ACHS [facility]; Protocol Last Admin: 04/11/20 16:34 Dose: Not Given Documented by: Metoprolol Succinate (Toprol Xl (Beta Margarito)) 150 mg PO DAILY [facility] Morphine Sulfate () 2 mg IV Q3H PRN PRN PRN Reason: Pain Score 6-10/10 Ondansetron HCl (Zofran) 4 mg IV Q8H PRN PRN PRN Reason: NAUSEA/VOMITING Oxycodone HCl (Oxyir) 5 mg PO Q4H PRN PRN PRN Reason: Pain Score 4-5/10 Senna/Docusate Sodium (Senokot-S, Raisa-Colace) 2 tablet PO BID PRN PRN PRN Reason: Constipation Sodium Chloride () 10 - 40 ml IV UD PRN PRN Reason: SALINE FLUSH Last Admin: 04/11/20 20:11 Dose: 10 ml Documented by: Zolpidem Tartrate (Ambien (Generic)) 5 mg PO QHS PRN PRN PRN Reason: INSOMNIA Assessment/Plan All Active Problems (Last Updated 01/20/20 @ 09:40 by Jimbo Zepeda CARTOON ANIMATOR-C) Cellulitis of right foot (Acute) Traumatic hematoma of right foot (Acute) Patient was examined and we discussed the possible hematoma of right midfoot. she has been on doxycycline for 2 days prior to admission to hospital and now improving with iv antibiotics. I do suspect underlying hematoma. given the swelling, pain, redness and now with necrotic changes of skin, I do feel that incision and drainage is warranted. MRI has been ordered for surgical planning. I will review mri and proceed with Iand D. hemodynamically, she appears stable and when patient was evaluated, she had already eaten dinner. will plan for I and D tomorrow. I discussed the plan in great detail. will proceed with Iand D with deep wound culture. she may require antibiotics at discharge. I discussed plan for primary closure if possible depending on intra-op findings vs secondary closure via wound vac or advanced wound healing as needed. Patient would like to proceed with primary closure if possible. patient understands risk of surgery not limited to infection, pain, swelling, bleeding, rsd, numbness, wound dehiscence, loss of foot. patient informed that smoking and diabetes promotes slow wound healing. patient consents for Iand D.
[2020-04-12] VITALS (12 sets, daily range): BP systolic 121–147; BP diastolic 61–75; PULSE 61–70; RESP 16–18; TEMP 36.3–36.9; O2SAT 94–100; BMI 21.4
[2020-04-12] MEDS: ALPRAZolam 0.5 MG Tablet PO ×2 (02:25→21:49)
[2020-04-12 05:20] LABS: Absolute Lymphocyte Count 1.83 X10^3/uL (0.83-4.51); Absolute Neutrophil Count 3.3 X10^3/uL (2.0-7.7); Basophil# 0.03 X10^3/uL; Basophil% 0.5 % (0-1); Eosinophil# 0.02 X10^3/uL; Eosinophils% 0.4 % (0-5); Hematocrit 37.3 % (37-47); Hemoglobin 12.1 g/dL (12.0-15.0); Lymphocyte # 1.83 X10^3/ul (4.0); Lymphocyte % 32.1 % (19-41); Mean Corp Hgb Conc 32.4 g/dL (32-36); Mean Corpuscular Hgb 29.1 pg (27.0-32.0); Mean Corpuscular Volume 89.7 fL (81-99); Mean Platelet Vol. 11.1 fl (6.2-12.0); Monocyte# 0.53 X10^3/uL; Monocyte% 9.3 % (0-10); NRBC Flagged by Analyzer 0 % (0-5); Neutrophil # 3.28 X10^3/uL (2.7-7.7); Neutrophil % 57.5 % (47-70); Platelet Count 119 K/mm3 (150-450); RBC Distribution Width CV 13.4 % (11.6-14.6); RBC Distribution Width SD 44.1 fl (35.1-43.9); Red Blood Count 4.16 M/mm3 (4.2-5.4); White Blood Count 5.7 K/mm3 (4.4-11.0)
[2020-04-12 05:28] LABS: Partial Thromboplast Time 29.7 Seconds (24.1-36.2)
[2020-04-12 05:35] LABS: ALB/GLOB Ratio 0.8 RATIO (0.9-2.4); AST(SGOT) 23 U/L (15-37); Alanine Aminotransfer ALT/SGPT 44 U/L (13-56); Albumin, Serum 3.1 g/dL (3.2-5.0); Alkaline Phosphatase 115 U/L (45-117); Anion Gap 4 (5-15); BUN 28 mg/dL (7-18); BUN/Creat Ratio 32.3 RATIO (10-20); Calcium,Total 8.8 mg/dL (8.5-10.1); Chloride 109 mmol/L (98-107); Creatinine, Serum 0.87 mg/dL (0.55-1.02); EST Glomerular Filtration Rate 68 mL/min (>60); Est Glom Filt Rate - Afr Amer 82 mL/min (>60); Estimated Creatinine Clearance 49.73 ml/min; Globulin 3.8 g/dL (2.2-4.2); Glucose 80 mg/dL (74-106); Magnesium 1.8 mg/dL (1.6-2.6); Phosphorus 3.1 mg/dL (2.5-4.9); Potassium 3.7 mmol/L (3.5-5.1); Protein, Total 6.9 g/dL (6.4-8.2); Sodium Level 141 mmol/L (136-145)
--- NOTE | 2020-04-12 06:20 | NURSING ---
Lab called wanting to know if we were going to obtain a nasal MRSA swab on this pt. In checking the documentation, it was noted that the swab was allegedly collected 04/11/20 by day shift. Lab cannot find the specimen. Janell RN aware that another swab needs collected.
[2020-04-12 06:51] LABS: Bedside Glucose 91 mg/dL (70-110)
--- NOTE | 2020-04-12 07:43 | NURSING ---
wound photo: right foot
[2020-04-12 08:53] LABS: M R Staph aureus DNA By PCR Negative (Negative); Probe Check PASS; Specimen Processing Control PASS
[2020-04-12] MEDS: Metoprolol(XL)Succ 50 MG Tablet 150 MG PO (10:29)
[2020-04-12] MEDS: amLODIPine 2.5 MG Tablet PO (10:29)
[2020-04-12] MEDS: Lactated Ringers 1,000 ML 60 ML IV ×2 (10:30→17:13)
--- NOTE | 2020-04-12 10:45 | CASEMGMT ---
RN CM Face to Face with patient for initial transition planning/care coordination assessment. RN CM introduced self and role at [facility]. Patient lying in bed, alert and oriented. Patient willing to participate in assessment and is able to answer all questions appropriately. Care providers, pharmacy, and demographics verified. Patient wishes to discharge home, denies need for home health at this time. Patient states she has no further needs or concerns at this time. CM to follow for discharge planning needs that may arise. PCP: Meredith Specialists: Shen, neuro; Lucille, hematology; Soniya, manager oracle database; Tiffanie, nephrology; , endocrinology; Marcella, stitch bonding machine drawer in Preferred Pharmacy: [facility], Insurance: [facility] Prescription Benefit: yes Living Will/HPOA: JIMMY Pelayo LNOK: Sister Living Arrangements: Patient lives with sister in 2 story home. Patient states she is independent Transportation: self/sister DME/HHC: Patient states she has shower chair, raised toilet seat, cane, grab bars, walker, wheelchair at home. Disposition Plan: Patient to discharge home with family support and follow-up plans in place. Solange FLANNERY, RN, CM
--- NOTE | 2020-04-12 10:59 | PN_ITS ---
<Cora Gordon - Last Filed: 04/12/20 11:15> Patient Problems: Active and Suspected Problems (Last Updated 01/20/20 @ 09:40 by Jimbo Zepeda NP-C) Cellulitis of right foot (Acute) Subjective: Patient seen and examined. Reports she is concerned that her blood sugar will drop due to being on liquid diet prior to surgery. Last blood glucose check stable. Instructed patient to inform nursing with any symptoms of hypoglycemia. Patient reports right foot pain, controlled. Denies fever, chills. - Physical Exam Vitals/I&O's: Vital Signs Temp Pulse Resp BP Pulse Ox 97.8 F 64 16 131/75 H 97 04/12/20 08:58 04/12/20 10:29 04/12/20 08:58 04/12/20 08:58 04/12/20 08:58 Oxygen Delivery Method Room Air Weight: 124 lb 11.2 oz Body Mass Index (BMI) 21.4 Intake and Output for Last 24 Hours 04/10/20 04/11/20 04/12/20 23:59 23:59 23:59 Intake Total 565 / 815 1250 / 1250 Balance 565 / 815 1250 / 1250 General: Alert, Oriented x3, Cooperative HEENT: Atraumatic, PERRLA, EOMI, Normocephalic Neck: Supple, No JVD, Negative Carotid Bruits Lungs: Clear to auscultation, Normal air movement Cardiovascular: Regular rate, No murmurs Abdomen: Bowel Sounds Present, Soft, Non Tender, Non-Distended Extremities: No clubbing, No cyanosis, No edema, Capillary Refill Less than 3 Seconds Skin: - - Right foot dressing clean dry and intact Musculoskeletal: No Tenderness to Palpation of Joints or Extremities Neurological: Cranial nerves II-XII grossly intact, Neuro grossly intact Psych/Mental Status: Normal Affect, Appropriate Laboratory Results 04/11/20 13:47: WBC 7.7, RBC 4.39, Hgb 12.8, Hct 39.8, MCV 90.7, MCH 29.2, MCHC 32.2, RDW Std Deviation 45.9 H, RDW Coeff of Violet 13.6, Plt Count 143 L, MPV 11.6, Immature Gran % (Auto) 0.300, Neut % (Auto) 72.7 H, Lymph % (Auto) 20.1, Payette % (Auto) 6.4, Eos % (Auto) 0.1, Baso % (Auto) 0.4, Absolute Neuts (auto) 5.6, Absolute Lymphs (auto) 1.54, Nucleated RBC % 0 04/11/20 13:47: Sodium 141, Potassium 4.2, Chloride 107, Carbon Dioxide 31.0, Anion Gap 3 L, BUN 34 H, Creatinine 1.25 H, Estim Creat Clear Calc 34.61, Est GFR (MDRD) Af Amer 54 L, Est GFR (MDRD) Non-Af 45 L, BUN/Creatinine Ratio 27.2 H , Glucose 163 H, Calcium 9.3 04/11/20 13:47: ESR 17 04/11/20 13:47: PT 13.8, INR 1.1 04/11/20 13:47: C-React Prot Ext Range < 2.90 04/11/20 13:47: Hemoglobin A1c 6.0 H 04/11/20 16:28: POC Glucose 95 04/11/20 21:55: POC Glucose 90 04/12/20 05:12: WBC 5.7, RBC 4.16 L, Hgb 12.1, Hct 37.3, MCV 89.7, MCH 29.1, MCHC 32.4, RDW Std Deviation 44.1 H, RDW Coeff of Violet 13.4, Plt Count 119 L, MPV 11.1, Immature Gran % (Auto) 0.200, Neut % (Auto) 57.5, Lymph % (Auto) 32.1, Payette % (Auto) 9.3, Eos % (Auto) 0.4, Baso % (Auto) 0.5, Absolute Neuts (auto) 3.3, Absolute Lymphs (auto) 1.83, Nucleated RBC % 0 04/12/20 05:12: Sodium 141, Potassium 3.7, Chloride 109 H, Carbon Dioxide 28.0, Anion Gap 4 L, BUN 28 H, Creatinine 0.87, Estim Creat Clear Calc 49.73, Est GFR (MDRD) Af Amer 82, Est GFR (MDRD) Non-Af 68, BUN/Creatinine Ratio 32.3 H, Glucose 80, Calcium 8.8, Phosphorus 3.1, Magnesium 1.8, Total Bilirubin 0.70, AST 23, ALT 44, Alkaline Phosphatase 115, Total Protein 6.9, Albumin 3.1 L, Globulin 3.8, Albumin/Globulin Ratio 0.8 L 04/12/20 05:12: APTT 29.7 04/12/20 06:37: POC Glucose 91 04/12/20 06:45: MRSA (PCR) Negative Current Medications Acetaminophen (Tylenol) 650 mg PO Q6H PRN PRN PRN Reason: Pain Score 1-10/Temp > 100.7 F Alprazolam (Xanax) 0.5 mg PO BID PRN PRN Reason: ANXIETY Last Admin: 04/12/20 02:25 Dose: 0.5 mg Documented by: Amlodipine Besylate (Norvasc) 2.5 mg PO DAILY [facility] Last Admin: 04/12/20 10:29 Dose: 2.5 mg Documented by: Atorvastatin Calcium (Lipitor) 40 mg PO QHS [facility] Last Admin: 04/11/20 20:38 Dose: Not Given Documented by: Heparin Sodium (Porcine) (Heparin Na) 5,000 unit SC Q12 [facility] Last Admin: 04/12/20 07:48 Dose: Not Given Documented by: Lactated Ringer's () 1,000 mls @ 60 mls/hr IV .[id number] [facility] Stop: 04/13/20 01:04 Last Admin: 04/12/20 10:30 Dose: 60 mls/hr Documented by: Vancomycin HCl 750 mg/ Sodium (Chloride) 265 mls @ 250 mls/hr IV Q24H [facility] Insulin Human Lispro (Humalog Kwikpen (Bkc)) 0 unit SC ACHS [facility]; Protocol Last Admin: 04/12/20 06:38 Dose: Not Given Documented by: Metoprolol Succinate (Toprol Xl (Beta Margarito)) 150 mg PO DAILY [facility] Last Admin: 04/12/20 10:29 Dose: 150 mg Documented by: Morphine Sulfate () 2 mg IV Q3H PRN PRN PRN Reason: Pain Score 6-10/10 Ondansetron HCl (Zofran) 4 mg IV Q8H PRN PRN PRN Reason: NAUSEA/VOMITING Oxycodone HCl (Oxyir) 5 mg PO Q4H PRN PRN PRN Reason: Pain Score 4-5/10 Senna/Docusate Sodium (Senokot-S, Raisa-Colace) 2 tablet PO BID PRN PRN PRN Reason: Constipation Sodium Chloride () 10 - 40 ml IV UD PRN PRN Reason: SALINE FLUSH Last Admin: 04/11/20 20:11 Dose: 10 ml Documented by: Zolpidem Tartrate (Ambien (Generic)) 5 mg PO QHS PRN PRN PRN Reason: INSOMNIA Medical Necessity - Tobacco Use Smoking Status: Light Smoker (<10/day) Tobacco Use: Cigarettes Assessment/Plan All Active Problems (Last Updated 01/20/20 @ 09:40 by Jimbo Zepeda NP-C) Cellulitis of right foot (Acute) Traumatic hematoma of right foot (Acute) 1. Acute right foot cellulitis/traumatic right foot infected hematoma-podiatry on consult. PRN pain regimen. PT/OT. MRI of right foot shows moderate subcutaneous edema over the dorsum of the foot. Moderate sized subcutaneous hematoma measuring 4.56 cm over the dorsum and base of the fourth and fifth metatarsal bones. Plan to undergo I&D this afternoon per podiatry. IV vancomycin pending postoperative cultures. Wound RN consult. 2. Type 2 diabetes mellitus-diet controlled. Hemoglobin A1c 6%. Accu-Cheks with sliding scale insulin. 3. Hypertension-continue Norvasc, metoprolol. 4. Hyperlipidemia-continue statin. 5. Chronic kidney disease stage III-stable, trend BMP. 6. Essential tremors-on alprazolam. DVT prophylaxis-heparin subcu This patient was seen by HARLAN Flores under the supervision of Dr. Bourgeois. <Omer Bourgeois F - Last Filed: 04/12/20 16:43> - Physical Exam Vitals/I&O's: Vital Signs Temp Pulse Resp BP Pulse Ox 97.3 F L 67 16 142/73 H 98 04/12/20 16:22 04/12/20 16:35 04/12/20 16:35 04/12/20 16:35 04/12/20 16:35 Oxygen Delivery Method Room Air Weight: 124 lb 11.201 oz Body Mass Index (BMI) 21.4 Intake and Output for Last 24 Hours 04/10/20 04/11/20 04/12/20 23:59 23:59 23:59 Intake Total 565 / 815 2532 / 2532 Balance 565 / 815 2531 / 2531 Laboratory Results 04/11/20 13:47: ESR 17 04/11/20 13:47: PT 13.8, INR 1.1 04/11/20 13:47: Hemoglobin A1c 6.0 H 04/11/20 16:28: POC Glucose 95 04/11/20 21:55: POC Glucose 90 04/12/20 05:12: WBC 5.7, RBC 4.16 L, Hgb 12.1, Hct 37.3, MCV 89.7, MCH 29.1, MCHC 32.4, RDW Std Deviation 44.1 H, RDW Coeff of Violet 13.4, Plt Count 119 L, MPV 11.1, Immature Gran % (Auto) 0.200, Neut % (Auto) 57.5, Lymph % (Auto) 32.1, Payette % (Auto) 9.3, Eos % (Auto) 0.4, Baso % (Auto) 0.5, Absolute Neuts (auto) 3.3, Absolute Lymphs (auto) 1.83, Nucleated RBC % 0 04/12/20 05:12: Sodium 141, Potassium 3.7, Chloride 109 H, Carbon Dioxide 28.0, Anion Gap 4 L, BUN 28 H, Creatinine 0.87, Estim Creat Clear Calc 49.73, Est GFR (MDRD) Af Amer 82, Est GFR (MDRD) Non-Af 68, BUN/Creatinine Ratio 32.3 H, Glucose 80, Calcium 8.8, Phosphorus 3.1, Magnesium 1.8, Total Bilirubin 0.70, AST 23, ALT 44, Alkaline Phosphatase 115, Total Protein 6.9, Albumin 3.1 L, Globulin 3.8, Albumin/Globulin Ratio 0.8 L 04/12/20 05:12: APTT 29.7 04/12/20 06:37: POC Glucose 91 04/12/20 06:45: MRSA (PCR) Negative 04/12/20 11:25: POC Glucose 111 H 04/12/20 14:59: POC Glucose 99 Current Medications Acetaminophen (Tylenol) 650 mg PO Q6H PRN PRN PRN Reason: Pain Score 1-10/Temp > 100.7 F Alprazolam (Xanax) 0.5 mg PO BID PRN PRN Reason: ANXIETY Last Admin: 04/12/20 02:25 Dose: 0.5 mg Documented by: Amlodipine Besylate (Norvasc) 2.5 mg PO DAILY [facility] Last Admin: 04/12/20 10:29 Dose: 2.5 mg Documented by: Atorvastatin Calcium (Lipitor) 40 mg PO QHS [facility] Last Admin: 04/11/20 20:38 Dose: Not Given Documented by: Heparin Sodium (Porcine) (Heparin Na) 5,000 unit SC Q12 [facility] Last Admin: 04/12/20 07:48 Dose: Not Given Documented by: Lactated Ringer's () 1,000 mls @ 60 mls/hr IV .[id number] [facility] Stop: 04/13/20 01:04 Last Infusion: 04/12/20 14:38 Dose: 60 mls/hr Documented by: Vancomycin HCl 750 mg/ Sodium (Chloride) 265 mls @ 250 mls/hr IV Q24H [facility] Last Infusion: 04/12/20 14:38 Dose: Infused Documented by: Insulin Human Lispro (Humalog Kwikpen (Bkc)) 0 unit SC ACHS [facility]; Protocol Last Admin: 04/12/20 11:26 Dose: Not Given Documented by: Metoprolol Succinate (Toprol Xl (Beta Margarito)) 150 mg PO DAILY [facility] Last Admin: 04/12/20 10:29 Dose: 150 mg Documented by: Morphine Sulfate () 2 mg IV Q3H PRN PRN PRN Reason: Pain Score 6-10/10 Ondansetron HCl (Zofran) 4 mg IV Q8H PRN PRN PRN Reason: NAUSEA/VOMITING Oxycodone HCl (Oxyir) 5 mg PO Q4H PRN PRN PRN Reason: Pain Score 4-5/10 Senna/Docusate Sodium (Senokot-S, Raisa-Colace) 2 tablet PO BID PRN PRN PRN Reason: Constipation Sodium Chloride () 10 - 40 ml IV UD PRN PRN Reason: SALINE FLUSH Last Admin: 04/11/20 20:11 Dose: 10 ml Documented by: Zolpidem Tartrate (Ambien (Generic)) 5 mg PO QHS PRN PRN PRN Reason: INSOMNIA Addendum: Dr. Bourgeois I personally examined the patient and reviewed the chart. I agree with the above. 74-year-old female who had a metal chair fall on her the top of her right foot on Friday noticed that it started getting more red and more painful over the weekend. She presented to the ER and was told to go home with an oral antibiotic however as the redness started getting worse she presented back to the ER. This time she was admitted and started on vancomycin, podiatry was consulted took her to the OR to clean out the hematoma. Deep wound cultures were sent. Inpatient E&M: [id number] Subs Hosp L2
[2020-04-12 11:46] LABS: Bedside Glucose 111 mg/dL (70-110)
--- NOTE | 2020-04-12 14:58 | PN.SURG_ITS ---
Patient Problems: Active and Suspected Problems (Last Updated 01/20/20 @ 09:40 by Jimbo Zepeda, FROG CATCHER- C) Cellulitis of right foot (Acute) Subjective: patient is seen at bedside this am. patient denies n/v/f/c. patient pain is improved. Objective: patient is alert and orientated x 3. no acute distress right foot with reduction in both redness and swelling. minimal pain to right foot. small black eschar unchanged to right foot mri confirms hematoma of right foot. no fractures. - Physical Exam Vitals/I&O's: Vital Signs Temp Pulse Resp BP Pulse Ox 97.8 F 64 16 131/75 H 97 04/12/20 08:58 04/12/20 10:29 04/12/20 08:58 04/12/20 08:58 04/12/20 08:58 Oxygen Delivery Method Room Air Weight: 56.563 kg Body Mass Index (BMI) 21.4 Intake and Output for Last 24 Hours 04/10/20 04/11/20 04/12/20 23:59 23:59 23:59 Intake Total 565 / 815 2532 / 2532 Balance 565 / 815 2532 / 2532 Laboratory Results 04/11/20 13:47: ESR 17 04/11/20 13:47: PT 13.8, INR 1.1 04/11/20 13:47: C-React Prot Ext Range < 2.90 04/11/20 13:47: Hemoglobin A1c 6.0 H 04/11/20 16:28: POC Glucose 95 04/11/20 21:55: POC Glucose 90 04/12/20 05:12: WBC 5.7, RBC 4.16 L, Hgb 12.1, Hct 37.3, MCV 89.7, MCH 29.1, MCHC 32.4, RDW Std Deviation 44.1 H, RDW Coeff of Violet 13.4, Plt Count 119 L, MPV 11.1, Immature Gran % (Auto) 0.200, Neut % (Auto) 57.5, Lymph % (Auto) 32.1, Clare % (Auto) 9.3, Eos % (Auto) 0.4, Baso % (Auto) 0.5, Absolute Neuts (auto) 3.3, Absolute Lymphs (auto) 1.83, Nucleated RBC % 0 04/12/20 05:12: Sodium 141, Potassium 3.7, Chloride 109 H, Carbon Dioxide 28.0, Anion Gap 4 L, BUN 28 H, Creatinine 0.87, Estim Creat Clear Calc 49.73, Est GFR (MDRD) Af Amer 82, Est GFR (MDRD) Non-Af 68, BUN/Creatinine Ratio 32.3 H, Glucose 80, Calcium 8.8, Phosphorus 3.1, Magnesium 1.8, Total Bilirubin 0.70, AST 23, ALT 44, Alkaline Phosphatase 115, Total Protein 6.9, Albumin 3.1 L, Globulin 3.8, Albumin/Globulin Ratio 0.8 L 04/12/20 05:12: APTT 29.7 04/12/20 06:37: POC Glucose 91 04/12/20 06:45: MRSA (PCR) Negative 04/12/20 11:25: POC Glucose 111 H Current Medications Acetaminophen (Tylenol) 650 mg PO Q6H PRN PRN PRN Reason: Pain Score 1-10/Temp > 100.7 F Alprazolam (Xanax) 0.5 mg PO BID PRN PRN Reason: ANXIETY Last Admin: 04/12/20 02:25 Dose: 0.5 mg Documented by: Amlodipine Besylate (Norvasc) 2.5 mg PO DAILY [facility] Last Admin: 04/12/20 10:29 Dose: 2.5 mg Documented by: Atorvastatin Calcium (Lipitor) 40 mg PO QHS [facility] Last Admin: 04/11/20 20:38 Dose: Not Given Documented by: Heparin Sodium (Porcine) (Heparin Na) 5,000 unit SC Q12 [facility] Last Admin: 04/12/20 07:48 Dose: Not Given Documented by: Lactated Ringer's () 1,000 mls @ 60 mls/hr IV .[id number] [facility] Stop: 04/13/20 01:04 Last Infusion: 04/12/20 14:38 Dose: 60 mls/hr Documented by: Vancomycin HCl 750 mg/ Sodium (Chloride) 265 mls @ 250 mls/hr IV Q24H [facility] Last Infusion: 04/12/20 14:38 Dose: Infused Documented by: Insulin Human Lispro (Humalog Kwikpen (Bkc)) 0 unit SC [facility]; Protocol Last Admin: 04/12/20 11:26 Dose: Not Given Documented by: Metoprolol Succinate (Toprol Xl (Beta Margarito)) 150 mg PO DAILY [facility] Last Admin: 04/12/20 10:29 Dose: 150 mg Documented by: Morphine Sulfate () 2 mg IV Q3H PRN PRN PRN Reason: Pain Score 6-10/10 Ondansetron HCl (Zofran) 4 mg IV Q8H PRN PRN PRN Reason: NAUSEA/VOMITING Oxycodone HCl (Oxyir) 5 mg PO Q4H PRN PRN PRN Reason: Pain Score 4-5/10 Senna/Docusate Sodium (Senokot-S, Raisa-Colace) 2 tablet PO BID PRN PRN PRN Reason: Constipation Sodium Chloride () 10 - 40 ml IV UD PRN PRN Reason: SALINE FLUSH Last Admin: 04/11/20 20:11 Dose: 10 ml Documented by: Zolpidem Tartrate (Ambien (Generic)) 5 mg PO QHS PRN PRN PRN Reason: INSOMNIA Medical Necessity - Tobacco Use Smoking Status: Light Smoker (<10/day) Tobacco Use: Cigarettes Assessment/Plan All Active Problems (Last Updated 01/20/20 @ 09:40 by Jimbo Zepeda, FROG CATCHER-C) Cellulitis of right foot (Acute) Traumatic hematoma of right foot (Acute) reviewed mri. mri confirms hematoma. discussed options of hematoma not limited to monitoring vs aspiration vs I&D. this patient has elected for I&D. will plan for wound cultures. I discussed surgical plan. will proceed with closure pending intra-op appearance and ability to achieve closure. if patient unable to have wound closed, may require wound vac vs packing. if packing or wound vac is required, she will obtain wound closure via secondary closure. patient understands risks of surgery not limited to infection, pain, swelling, bleeding, hematoma, rsd, loss of foot. she understands her greatest risk is slow wound healing due to diabetes and smoking. she understands this procedure is limb salvage. all questions answered. no guarantees expressed
[2020-04-12 15:06] LABS: Bedside Glucose 99 mg/dL (70-110)
[2020-04-12 17:55] LABS: Bedside Glucose 74 mg/dL (70-110)
[2020-04-12 21:55] LABS: Bedside Glucose 109 mg/dL (70-110)
[2020-04-12] MEDS: 0.9% Saline Lock 10 ML Syringe IV (23:33)
[2020-04-12] MEDS: Morphine 2 MG/ML Syringe IV (23:33)
[2020-04-13] MEDS: oxyCODONE 5 MG Tablet PO (01:48)
[2020-04-13 02:07] VITALS: BP 129/59; PULSE 65; RESP 18; TEMP 36.8; O2SAT 94
[2020-04-13 06:03] LABS: Hematocrit 35.8 % (37-47); Hemoglobin 11.5 g/dL (12.0-15.0); Mean Corp Hgb Conc 32.1 g/dL (32-36); Mean Corpuscular Hgb 29.2 pg (27.0-32.0); Mean Corpuscular Volume 90.9 fL (81-99); Mean Platelet Vol. 11.6 fl (6.2-12.0); Platelet Count 111 K/mm3 (150-450); RBC Distribution Width CV 13.4 % (11.6-14.6); RBC Distribution Width SD 44.7 fl (35.1-43.9); Red Blood Count 3.94 M/mm3 (4.2-5.4); White Blood Count 7.2 K/mm3 (4.4-11.0)
[2020-04-13 06:27] LABS: Anion Gap 3 (5-15); BUN 19 mg/dL (7-18); BUN/Creat Ratio 18.4 RATIO (10-20); Calcium,Total 8.7 mg/dL (8.5-10.1); Chloride 104 mmol/L (98-107); Creatinine, Serum 1.03 mg/dL (0.55-1.02); EST Glomerular Filtration Rate 56 mL/min (>60); Est Glom Filt Rate - Afr Amer 68 mL/min (>60); Estimated Creatinine Clearance 42.01 ml/min; Glucose 97 mg/dL (74-106); Sodium Level 138 mmol/L (136-145)
[2020-04-13 06:46] LABS: Bedside Glucose 99 mg/dL (70-110)
--- NOTE | 2020-04-13 07:43 | PN.SURG_ITS ---
Patient Problems: Active and Suspected Problems (Last Updated 01/20/20 @ 09:40 by Jimbo Zepeda TOW MOTOR MECHANIC- C) Cellulitis of right foot (Acute) Subjective: patient is seen at bedside this am. complains of mild pain to right foot and ankle. grades it as 2/10. denies n/v/f/c. has no other complaints. Objective: patient is alert and orientated x 3. she does not appear in any distress right foot with surgical incision nicely approximated without tension. mild periwound erythema but resolves with elevation. there is no drainage, no purulence, no active bleeding, no fluctuance. protective sensation is intact to the right foot. patient is able to move the right foot relative to ankle without pain. mild pain to palpation of right midfoot. no calf pain present. - Physical Exam Vitals/I&O's: Vital Signs Temp Pulse Resp BP Pulse Ox 98.2 F 65 18 129/59 H 94 04/13/20 02:07 04/13/20 02:07 04/13/20 02:07 04/13/20 02:07 04/13/20 02:07 Oxygen Delivery Method Room Air Weight: 56.563 kg Body Mass Index (BMI) 21.4 Intake and Output for Last 24 Hours 04/11/20 04/12/20 04/13/20 23:59 23:59 23:59 Intake Total 565 / 815 4712 / 4712 673 / 673 Output Total 180 / 180 Balance 565 / 815 4532 / 4532 673 / 673 Laboratory Results 04/12/20 06:45: MRSA (PCR) Negative 04/12/20 11:25: POC Glucose 111 H 04/12/20 14:59: POC Glucose 99 04/12/20 17:36: POC Glucose 74 04/12/20 21:41: POC Glucose 109 04/13/20 05:40: WBC 7.2, RBC 3.94 L, Hgb 11.5 L, Hct 35.8 L, MCV 90.9, MCH 29.2, MCHC 32.1, RDW Std Deviation 44.7 H, RDW Coeff of Violet 13.4, Plt Count 111 L, MPV 11.6 04/13/20 05:40: Sodium 138, Potassium 4.0, Chloride 104, Carbon Dioxide 31.0, Anion Gap 3 L, BUN 19 H, Creatinine 1.03 H, Estim Creat Clear Calc 42.01, Est GFR (MDRD) Af Amer 68, Est GFR (MDRD) Non-Af 56 L, BUN/Creatinine Ratio 18.4, Glucose 97, Calcium 8.7 04/13/20 06:42: POC Glucose 99 Current Medications Acetaminophen (Tylenol) 650 mg PO Q6H PRN PRN PRN Reason: Pain Score 1-10/Temp > 100.7 F Alprazolam (Xanax) 0.5 mg PO BID PRN PRN Reason: ANXIETY Last Admin: 04/12/20 21:49 Dose: 0.5 mg Documented by: Amlodipine Besylate (Norvasc) 2.5 mg PO DAILY [facility] Last Admin: 04/12/20 10:29 Dose: 2.5 mg Documented by: Atorvastatin Calcium (Lipitor) 40 mg PO QHS [facility] Last Admin: 04/12/20 21:49 Dose: Not Given Documented by: Heparin Sodium (Porcine) (Heparin Na) 5,000 unit SC Q12 [facility] Last Admin: 04/12/20 21:49 Dose: Not Given Documented by: Vancomycin HCl 750 mg/ Sodium (Chloride) 265 mls @ 250 mls/hr IV Q24H [facility] Last Infusion: 04/12/20 14:38 Dose: Infused Documented by: Insulin Human Lispro (Humalog Kwikpen (Bkc)) 0 unit SC [facility]; Protocol Last Admin: 04/13/20 06:46 Dose: Not Given Documented by: Metoprolol Succinate (Toprol Xl (Beta Margarito)) 150 mg PO DAILY [facility] Last Admin: 04/12/20 10:29 Dose: 150 mg Documented by: Morphine Sulfate () 2 mg IV Q3H PRN PRN PRN Reason: Pain Score 6-10/10 Last Admin: 04/12/20 23:33 Dose: 2 mg Documented by: Ondansetron HCl (Zofran) 4 mg IV Q8H PRN PRN PRN Reason: NAUSEA/VOMITING Oxycodone HCl (Oxyir) 5 mg PO Q4H PRN PRN PRN Reason: Pain Score 4-5/10 Last Admin: 04/13/20 01:48 Dose: 5 mg Documented by: Senna/Docusate Sodium (Senokot-S, Raisa-Colace) 2 tablet PO BID PRN PRN PRN Reason: Constipation Sodium Chloride () 10 - 40 ml IV UD PRN PRN Reason: SALINE FLUSH Last Admin: 04/12/20 23:33 Dose: 10 ml Documented by: Zolpidem Tartrate (Ambien (Generic)) 5 mg PO QHS PRN PRN PRN Reason: INSOMNIA Medical Necessity - Tobacco Use Smoking Status: Light Smoker (<10/day) Tobacco Use: Cigarettes Assessment/Plan All Active Problems (Last Updated 01/20/20 @ 09:40 by Jimbo Zepeda, TOW MOTOR MECHANIC-C) Cellulitis of right foot (Acute) Traumatic hematoma of right foot (Acute) patient is pod #1. right foot appears stable. incision is nicely approximated without signs of disruption. no clinical signs of infection. WBC normal. Cultures are pending from surgery. continue with antibiotics. she will need to discharge on oral antibiotics. if oral antibiotics are arranged, she can discharge home today or tomorrow as long as her pain is relatively controlled on oral pain medication. she appears to be tolerating percocet nicely so discharge on percocet would be appropriate x 1 week. Patient is to remain partial weightbearing to heel. I recommend she use walker at all times whenever ambulatory. any weight to the front of her foot can risk swelling which can lead to dehiscence. offered halfway placement but she declined I will have patient change bandage every 2 days. she will apply guaze and betadine to incision with jacob for compression. she is to keep her foot dry at all times. she will f/u in my clinic next week. I will see her tomorrow if she is still in hospital. discussed right foot and ankle pain. it is controlled on percocet. xrays negative prior to admission. offered repeat xrays but she does not feel that is necessary. picture taken of right foot and in chart via Kimberly Mendenhall
--- NOTE | 2020-04-13 08:20 | NURSING ---
wound photo: right foot
[2020-04-13 08:24] VITALS: BP 126/62; PULSE 55; RESP 16; TEMP 36.8; O2SAT 98
[2020-04-13 09:11] VITALS: O2SAT 98
[2020-04-13] MEDS: ALPRAZolam 0.5 MG Tablet PO ×2 (09:42→22:08)
[2020-04-13] MEDS: amLODIPine 2.5 MG Tablet PO (09:42)
[2020-04-13 09:43] VITALS: PULSE 55
--- NOTE | 2020-04-13 11:04 | PN_ITS ---
Patient Problems: Active and Suspected Problems (Last Updated 01/20/20 @ 09:40 by Jimbo Zepeda LEVEL VIAL CURVATURE GAUGER- C) Cellulitis of right foot (Acute) Subjective: Doing well, no issues overnight. Little nervous about going home and would like to stay another day Vitals/I&O's: Vital Signs Temp Pulse Resp BP Pulse Ox 98.3 F 55 L 16 126/62 H 98 04/13/20 08:24 04/13/20 09:43 04/13/20 08:24 04/13/20 08:24 04/13/20 09:11 Oxygen Delivery Method Room Air Weight: 124 lb 11.201 oz Body Mass Index (BMI) 21.4 Intake and Output for Last 24 Hours 04/11/20 04/12/20 04/13/20 23:59 23:59 23:59 Intake Total 565 / 815 4712 / 4712 673 / 673 Output Total 180 / 180 Balance 565 / 815 4532 / 4532 673 / 673 General: Alert, Oriented x3, Cooperative, No apparent distress HEENT: Atraumatic, PERRLA, EOMI, Normocephalic Oral: Moist Mucosa Neck: Supple, No JVD Lungs: Clear to auscultation, Normal air movement, No rhonchi, No wheeze, No rales, Diminished Cardiovascular: Regular rate, Regular Rhythm, Normal S1, Normal S2, No murmurs Abdomen: Soft, Non Tender, Non-Distended, No Hepato-splenomegaly Extremities: No edema, Capillary Refill Less than 3 Seconds Skin: - - Pictures of the incision were reviewed, redness is little bit improved. Dressing is intact Neurological: Neuro grossly intact, Sensory exam intact to light touch and pain Psych/Mental Status: Normal Affect, Appropriate Microbiology Past 72 Hours 04/12/20 16:26 Tissue - Aerobic & Anaerobic Swabs Gram Stain - Final Laboratory Results 04/12/20 11:25: POC Glucose 111 H 04/12/20 14:59: POC Glucose 99 04/12/20 17:36: POC Glucose 74 04/12/20 21:41: POC Glucose 109 04/13/20 05:40: WBC 7.2, RBC 3.94 L, Hgb 11.5 L, Hct 35.8 L, MCV 90.9, MCH 29.2, MCHC 32.1, RDW Std Deviation 44.7 H, RDW Coeff of Violet 13.4, Plt Count 111 L, MPV 11.6 04/13/20 05:40: Sodium 138, Potassium 4.0, Chloride 104, Carbon Dioxide 31.0, Anion Gap 3 L, BUN 19 H, Creatinine 1.03 H, Estim Creat Clear Calc 42.01, Est GFR (MDRD) Af Amer 68, Est GFR (MDRD) Non-Af 56 L, BUN/Creatinine Ratio 18.4, Glucose 97, Calcium 8.7 04/13/20 06:42: POC Glucose 99 Current Medications Acetaminophen (Tylenol) 650 mg PO Q6H PRN PRN PRN Reason: Pain Score 1-10/Temp > 100.7 F Alprazolam (Xanax) 0.5 mg PO BID PRN PRN Reason: ANXIETY Last Admin: 04/13/20 09:42 Dose: 0.5 mg Documented by: Amlodipine Besylate (Norvasc) 2.5 mg PO DAILY [facility] Last Admin: 04/13/20 09:42 Dose: 2.5 mg Documented by: Atorvastatin Calcium (Lipitor) 40 mg PO QHS [facility] Last Admin: 04/12/20 21:49 Dose: Not Given Documented by: Heparin Sodium (Porcine) (Heparin Na) 5,000 unit SC Q12 [facility] Last Admin: 04/13/20 09:44 Dose: Not Given Documented by: Vancomycin HCl 750 mg/ Sodium (Chloride) 265 mls @ 250 mls/hr IV Q24H [facility] Last Infusion: 04/12/20 14:38 Dose: Infused Documented by: Insulin Human Lispro (Humalog [place] (Bkc)) 0 unit SC [facility]; Protocol Last Admin: 04/13/20 11:00 Dose: Not Given Documented by: Metoprolol Succinate (Toprol Xl (Beta Margarito)) 150 mg PO DAILY [facility] Last Admin: 04/13/20 09:43 Dose: Not Given Documented by: Morphine Sulfate () 2 mg IV Q3H PRN PRN PRN Reason: Pain Score 6-10/10 Last Admin: 04/12/20 23:33 Dose: 2 mg Documented by: Ondansetron HCl (Zofran) 4 mg IV Q8H PRN PRN PRN Reason: NAUSEA/VOMITING Oxycodone HCl (Oxyir) 5 mg PO Q4H PRN PRN PRN Reason: Pain Score 4-5/10 Last Admin: 04/13/20 01:48 Dose: 5 mg Documented by: Senna/Docusate Sodium (Senokot-S, Raisa-Colace) 2 tablet PO BID PRN PRN PRN Reason: Constipation Sodium Chloride () 10 - 40 ml IV UD PRN PRN Reason: SALINE FLUSH Last Admin: 04/12/20 23:33 Dose: 10 ml Documented by: Zolpidem Tartrate (Ambien (Generic)) 5 mg PO QHS PRN PRN PRN Reason: INSOMNIA STROKE Vital Signs/Narrative: Vital Signs Temp Pulse Resp BP Pulse Ox 04/13/20 09:43 55 L 04/13/20 09:11 98 04/13/20 08:24 98.3 F 55 L 16 126/62 H 98 Medical Necessity - Tobacco Use Smoking Status: Light Smoker (<10/day) Tobacco Use: Cigarettes Assessment/Plan All Active Problems (Last Updated 01/20/20 @ 09:40 by Jimbo Zepeda LEVEL VIAL CURVATURE GAUGER-C) Cellulitis of right foot (Acute) Traumatic hematoma of right foot (Acute) 1. Acute right foot cellulitis secondary to a possibly infected hematoma from trauma -Status post evacuation of the hematoma on 04/12/2020 by podiatry -Wound cultures are pending the Gram stain shows no organisms -Continue with vancomycin for now, MRSA is negative -She remains afebrile without leukocytosis, therefore this could likely just be reactive to the hematoma not necessarily cellulitis 2. DM 2/CKD 3 -Diet controlled, her A1c is 6% -She is on a sliding scale as a precaution -Creatinine is at baseline 3. HTN/HLD -Blood pressure is stable -Continue with her blood pressure medications -Continue with statin 4. Essential tremor -Stable -Continue Xanax DVT: Heparin Inpatient E&M: 51448 Subs Hosp L2
[2020-04-13 11:10] LABS: Bedside Glucose 147 mg/dL (70-110)
[2020-04-13 12:41] LABS: Bedside Glucose 119 mg/dL (70-110)
[2020-04-13 14:40] LABS: Vancomycin, Trough Level 5.9 ug/mL (5.0-15.0)
[2020-04-13 15:03] VITALS: BP 129/60; PULSE 65; RESP 16; TEMP 37.1; O2SAT 95
--- NOTE | 2020-04-13 15:22 | OP.PCM_ITS ---
Report of Operation Date of Procedure: 04/12/20 Pre-Operative Diagnosis: hematoma, right foot Post-Operative Diagnosis: hematoma right foot Surgery/Procedure Performed:: Incision and drainage right foot with evacuation of hematoma Description of Surgical Findings:: + hematoma of right foot. - purulence - deep soft-tissue injury Type of Anesthesia:: Local MAC Specimen's removed: wound culture right foot Drains: none Estimated Blood Loss (mL): <5ml Description of Procedure: Patient is a pleasant 74 year old female who unfortunately sustained an injury several weeks ago when a steel framed chair landed on her right foot. she presented to the emergency room early March and was told she had no fracture and she was sent home. patient states that over the past few days, she had developed increasing pain and redness prompting her to present to urgent care. she was placed on doxycycline. Unfortunate, the pain and redness have increased so she presented to the emergency department this past Friday and was subsequently admitted for cellulitis and infected hematoma. I was consulted and ordered mri that confirms hematoma. I discussed I&D with evacuation of hematoma. I discussed primary closure vs closure via wound vac depending on intra-op findings. I discussed rationale for wound vac. patient would prefer primary closure if at all possible. I discussed risks of procedure not limited to infection, pain, swelling, bleeding, slow wound healing, wound dehiscence, numbness, rsd, cardiac arrest, dvt, . i also discussed risk of slow healing of wound due to past trauma, history of diabetes and smoking. patient does have recent pvr that shows adequate perfusion. patient informed that following surgery, I want her to use surgical shoe and only apply weight to her heel. any weight to her foot can result in complications. patient consents to procedure. Patient was transferred to operating room and placed on operating room table in supine position. she was placed under mac anesthesia and the right foot was prepped and draped in the usual aseptic technique. a time out was then performed making note of the procedure. it should be noted that a tourniquet was applied prior to prep but never used. Attention was first directed to the blood blister and eschar of right dorsal la teral midfoot. I drained the distal blister with 15 blade and debrided this. after debriding the blood filled blister, there was intact skin beneath. I was happy to see this because this then would possibly allow me to use good skin for closure. the proximal eschar was necrotic and I figured this would need to be excised A linear incision along the dorsal lateral midfoot was made. Upon entering the deep subcutaneous tissue, there was a large hematoma present and this was evacuated. A deep wound culture was then performed. I inspected the deep compartment and found the soft-tissue to be intact without injury. tendon sheaths were intact without disruption. no purulence was encountered. Pulse lavage was performed. Following irrigation, I assured that all bleeding structures were cauterized. gel foam was used for hemostasis but removed prior to closure. Closure was attempted of subcutaneous tissue but the tissue was very thin and friable so I could not achieve closure of deep subctuaneous tissue with vicry. Rather, I achieved closure of skin and subcutaneous tissue by throwing deep simple interuppted and horizontal mattress stitches. the skin incision approximated nicely without tension. The foot was dressed with xeroform, 4x4 guaze, melissa and compressive jacob. patient was awakened and found to be in stable condition. she was transferred to pacu in stable condition. patient will continue with antibiotics. will f/u wound culture. plan will be discharge home on oral antibiotics
[2020-04-13 16:15] LABS: Bedside Glucose 146 mg/dL (70-110)
[2020-04-13 20:52] VITALS: BP 142/65; PULSE 69; RESP 16; TEMP 37.2; O2SAT 94
[2020-04-13 21:41] LABS: Bedside Glucose 126 mg/dL (70-110)
[2020-04-13] MEDS: Doxycycline 100 MG CAPSULE PO (22:08)
[2020-04-14 02:52] VITALS: BP 122/53; PULSE 75; RESP 16; TEMP 37.2; O2SAT 97
[2020-04-14 06:55] LABS: Bedside Glucose 106 mg/dL (70-110)
[2020-04-14 07:18] VITALS: O2SAT 95
--- NOTE | 2020-04-14 08:03 | DCINST_ITS ---
- Discharge Diagnoses Current Active Problems: Current Active and Chronic Problems (Last Updated 01/20/20 @ 09:40 by Jimbo Zepeda NP-C) Cellulitis of right foot (Acute) Hyperlipidemia (Chronic) Stage III chronic kidney disease (Chronic) Type 2 diabetes mellitus (Chronic) You will use the following diet at home:: Calorie/Carbohydrate Controlled (specify 1200, 1400, etc) Your food should be the consistency of: Regular Your liquids should be the consistency of: Regular/Thin Discharge Activity: Return to Normal Activity Weight Bearing Status: - - Weightbearing heel only on the right Call your doctor if you observe: Fever of 101 or Higher, Shortness of breath, Dizziness, Fainting spells, Swelling in the ankles, Chest pain, Increased palpitations (irregular heartbeat) Allergies/Adverse Reactions: Allergies bee venom protein (honey bee) Allergy (Verified 04/11/20 12:54) Rash fluconazole Allergy (Verified 04/11/20 12:54) heart racing Iodine and Iodide Containing Produc Allergy (Verified 04/11/20 12:54) Unknown lisinopril Allergy (Verified 04/11/20 12:54) Rash Penicillins Allergy (Verified 04/11/20 12:54) Unknown shellfish derived Allergy (Verified 04/11/20 12:54) Other ciprofloxacin [From Cipro] Adverse Reaction (Verified 04/11/20 12:54) Diarrhea clindamycin Adverse Reaction (Verified 04/11/20 12:54) Diarrhea glimepiride Adverse Reaction (Verified 04/11/20 12:54) Other MAKES ME DRUNK Sulfa (Sulfonamide Antibiotics) Adverse Reaction (Verified 04/11/20 12:54) Diarrhea Medications to take at Discharge Cholecalciferol (VIT D3) [Vitamin D3] 1,000 unit PO DAILY 06/27/19 Vitamin B Complex 1 ea PO DAILY 06/27/19 epinephrine 0.3 mg/0.3 mL injection, auto-injector 0.3 ml IM ONCE 07/21/19 Vitamin E 400 unit PO DAILY 10/22/19 rosuvastatin 20 mg tablet 20 mg PO DAILY #30 tab 10/29/19 metoprolol succinate 50 mg tablet,extended release 24 hr 150 mg PO DAILY tab 01/20/20 alprazolam 0.5 mg tablet 0.5 mg PO BID PRN tab 01/21/20 amlodipine 2.5 mg tablet 2.5 mg PO DAILY #90 tab 02/03/20 Primary Care Physician: Aaron Harper MD [Primary Care Provider] - Please follow up with your Primary Care Physician in: 3-5 days Test Results: Test results from this visit will be discussed in further detail at your follow- up appointment, if applicable. Please Follow Up With: Wild Naranjo DPM When: 1 week
[2020-04-14 09:00] VITALS: BP 134/67; PULSE 78; RESP 16; TEMP 36.9; O2SAT 96
[2020-04-14 09:30] VITALS: PULSE 78
[2020-04-14] MEDS: Doxycycline 100 MG CAPSULE PO (09:30)
[2020-04-14] MEDS: Metoprolol(XL)Succ 50 MG Tablet 150 MG PO (09:30)
[2020-04-14] MEDS: amLODIPine 2.5 MG Tablet PO (09:30)
[2020-04-14] MEDS: ALPRAZolam 0.5 MG Tablet PO (09:55)
--- NOTE | 2020-04-14 10:20 | PN.SURG_ITS ---
Patient Problems: Active and Suspected Problems (Last Updated 01/20/20 @ 09:40 by Jimbo Zepeda INDUSTRIAL ORGANIZATION MANAGER- C) Cellulitis of right foot (Acute) Subjective: patient is seen this am. she states pain is much better. she denies n/v/f/c. she has no other complaints. Objective: patient is alert and orientated x 3. she does not appear in any distress right foot with surigical incision approximated without tension. there is some periwound erythema but improves with elevation. surgical incision does not show any necrosis however, there is some slight bruising along proximal incision. no drainage, no fluctuance, no local signs of infection. no deep calf pain. - Physical Exam Vitals/I&O's: Vital Signs Temp Pulse Resp BP Pulse Ox 98.4 F 78 16 134/67 H 96 04/14/20 09:00 04/14/20 09:30 04/14/20 09:00 04/14/20 09:00 04/14/20 09:00 Oxygen Delivery Method Room Air Weight: 56.563 kg Body Mass Index (BMI) 21.4 Intake and Output for Last 24 Hours 04/12/20 04/13/20 04/14/20 23:59 23:59 23:59 Intake Total 4712 / 4712 673 / 973 500 / 500 Output Total 180 / 180 Balance 4532 / 4532 673 / 973 500 / 500 Microbiology Past 72 Hours 04/12/20 16:26 Tissue - Aerobic & Anaerobic Swabs Gram Stain - Final 04/12/20 16:26 Tissue - Aerobic & Anaerobic Swabs Wound Culture - Preliminary No growth-Final to follow Laboratory Results 04/13/20 10:59: POC Glucose 147 H 04/13/20 12:24: POC Glucose 119 H 04/13/20 13:32: Vancomycin Trough 5.9 04/13/20 15:53: POC Glucose 146 H 04/13/20 21:31: POC Glucose 126 H 04/14/20 06:47: POC Glucose 106 Current Medications Acetaminophen (Tylenol) 650 mg PO Q6H PRN PRN PRN Reason: Pain Score 1-10/Temp > 100.7 F Alprazolam (Xanax) 0.5 mg PO BID PRN PRN Reason: ANXIETY Last Admin: 04/14/20 09:55 Dose: 0.5 mg Documented by: Amlodipine Besylate (Norvasc) 2.5 mg PO DAILY [facility] Last Admin: 04/14/20 09:30 Dose: 2.5 mg Documented by: Atorvastatin Calcium (Lipitor) 40 mg PO QHS [facility] Last Admin: 04/13/20 20:59 Dose: Not Given Documented by: Doxycycline Monohydrate (Doxycycline) 100 mg PO BID [facility] Last Admin: 04/14/20 09:30 Dose: 100 mg Documented by: Heparin Sodium (Porcine) (Heparin Na) 5,000 unit SC Q12 [facility] Last Admin: 04/14/20 09:27 Dose: Not Given Documented by: Insulin Human Lispro (Humalog [place]wikpen (Bkc)) 0 unit SC [facility]; Protocol Last Admin: 04/14/20 06:49 Dose: Not Given Documented by: Metoprolol Succinate (Toprol Xl (Beta Margarito)) 150 mg PO DAILY [facility] Last Admin: 04/14/20 09:30 Dose: 150 mg Documented by: Morphine Sulfate () 2 mg IV Q3H PRN PRN PRN Reason: Pain Score 6-10/10 Last Admin: 04/12/20 23:33 Dose: 2 mg Documented by: Ondansetron HCl (Zofran) 4 mg IV Q8H PRN PRN PRN Reason: NAUSEA/VOMITING Oxycodone HCl (Oxyir) 5 mg PO Q4H PRN PRN PRN Reason: Pain Score 4-5/10 Last Admin: 04/13/20 01:48 Dose: 5 mg Documented by: Senna/Docusate Sodium (Senokot-S, Raisa-Colace) 2 tablet PO BID PRN PRN PRN Reason: Constipation Sodium Chloride () 10 - 40 ml IV UD PRN PRN Reason: SALINE FLUSH Last Admin: 04/12/20 23:33 Dose: 10 ml Documented by: Zolpidem Tartrate (Ambien (Generic)) 5 mg PO QHS PRN PRN PRN Reason: INSOMNIA Medical Necessity - Tobacco Use Smoking Status: Light Smoker (<10/day) Tobacco Use: Cigarettes Assessment/Plan All Active Problems (Last Updated 01/20/20 @ 09:40 by Jimbo Zepeda INDUSTRIAL ORGANIZATION MANAGER-C) Cellulitis of right foot (Acute) Traumatic hematoma of right foot (Acute) patient was examined and we discussed findings. a dressing change was performed. I evaluated the foot. the incision appears stable, free of any drainage or necrosis. there is slight swelling to her foot and this is critical to continue to elevate. I informed patient that swelling can lead to pressure along incision. Today, I dressed the wound with betadine, adaptic, 4x4 guaze, melissa, webrill and jacob. I am applying webrill to attempt to alleviate more swelling. if dressing is too tight, she is to remove. I informed patient that her greatest risk is wound healing. she is diabetic and smokes. she is at risk of wound healing issues. if wound fails to heal, she may require debridement and wound vac. she does not wish to use wound vac at this time. will continue with po antibiotic. continue heel weight bearing only she will change dressing every 2 days f/u in next week in my office ok for discharge if medically stable
--- NOTE | 2020-04-14 10:50 | DS.PCM_ITS ---
Discharge Date and Diagnosis - Problem List Patient Problems: Active and Suspected Problems (Last Updated 01/20/20 @ 09:40 by ROGER Oconnor) Cellulitis of right foot (Acute) Date of Admission: 04/11/20 Date of Discharge: 04/14/20 - Primary Discharge Diagnosis Acute Problems: Active Problems (Last Updated 01/20/20 @ 09:40 by HARLAN Oconnor) Cellulitis of right foot (Acute) - Secondary Discharge Diagnosis Chronic Problems: Chronic Problems (Last Updated 01/20/20 @ 09:40 by HARLAN Oconnor) Hyperlipidemia (Chronic) Stage III chronic kidney disease (Chronic) Type 2 diabetes mellitus (Chronic) Bilateral carotid artery stenosis (Chronic) Ectopic atrial rhythm (Chronic) Essential (primary) hypertension (Chronic) Anemia (Chronic) Hospital Course and Treatment Imaging Results: Clinical Impression(s) from Imaging Studies Lower Extremity MRI 04/11/20 15:45 IMPRESSION: 1. Moderate subcutaneous edema is present over the dorsum of the foot. 2. A moderate size subcutaneous hematoma measuring 4.56 cm is present over the dorsum and base of the fourth and fifth metatarsal bones. 3. No visualized marrow edema or fractures. Electronically Signed: Dima Jamison MD at 20:42 EDT , Service support , Chest X-Ray 04/11/20 15:56 IMPRESSION: Degenerative changes, as described above. No demonstrated acute cardiopulmonary process. Electronically Signed: Destini Patino at 16:24 EDT Tel , Service support , Report of Operation Date of Procedure: 04/12/20 Pre-Operative Diagnosis: hematoma, right foot Post-Operative Diagnosis: hematoma right foot Surgery/Procedure Performed:: Incision and drainage right foot with evacuation of hematoma Description of Surgical Findings:: + hematoma of right foot. 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 Her illness started this past Friday when she dropped a chair on her right foot and she came to the emergency department same day, had an x-ray done that showed no fractures and she was sent home. 1 day later, she started having right foot pain, dull aching pain, around 6 out of 10 in severity, persistent, aggravated by walking on her right foot, associated with increasing swelling and redness of the right foot and without relieving factor. She had a small abrasion on the lateral aspect of the right foot. Yesterday morning, she went to urgent care and she was given prescription for doxycycline and instructed to come to the emergency department if the swelling and redness of the foot did not improve. She continued to have increasing pain, swelling and redness of the rig ht foot and she came to the emergency department today. She denied fever or chills. In the emergency department, her vital signs were stable, was afebrile. Her routine blood work was remarkable for BUN of 34, creatinine of 1.25, otherwise unremarkable. She had an x-ray of the right foot done on April 07, 2020 that showed soft tissue injury without underlying fracture or foreign body. She is being admitted for acute right foot scleritis, acute traumatic right foot hematoma probably infected. Hospital Course: 1. Acute right foot cellulitis secondary to possibly infected hematoma from trauma status post evacuation 04/12/[id number]-[id number]-old female with a history of diet-controlled diabetes presents after having a metal chair fall on the top of her foot leading to an abrasion and hematoma. She initially came to ER/urgent care and was given a doxycycline which she took 2 doses of and continued having redness and swelling therefore presented back to the ER. This time she was admitted and placed on vancomycin. Wound culture from the hematoma did not stain for any organisms and has had no growth at this time. She has never had a fever and has not had a white count either. She did have the hematoma evacuated by podiatry and will follow-up with podiatry in 1 week. She does not want any pain meds and she still has her bottle of doxycycline that she had received on her previous ER visit therefore she does not want to go home on any different antibiotics either. I discussed with her the discharge plan for today and she expressed understanding the risks and benefits of going home today. 2. Type 2 diabetes, CKD 3, hypertension, hyperlipidemia, essential tremor are all chronic conditions that complicate her care. Her home medications were continued where appropriate. Patient Problems: Active and Suspected Problems (Last Updated 01/20/20 @ 09:40 by Jimbo Zepeda, WAN- C) Cellulitis of right foot (Acute) - Physical Exam Vitals/I&O's: Vital Signs Temp Pulse Resp BP Pulse Ox 98.4 F 78 16 134/67 H 96 04/14/20 09:00 04/14/20 09:30 04/14/20 09:00 04/14/20 09:00 04/14/20 09:00 Oxygen Delivery Method Room Air Weight: 124 lb 11.201 oz Body Mass Index (BMI) 21.4 Intake and Output for Last 24 Hours 04/12/20 04/13/20 04/14/20 23:59 23:59 23:59 Intake Total 4712 / 4712 673 / 973 500 / 500 Output Total 180 / 180 Balance 4532 / 4532 673 / 973 500 / 500 General: Alert, Oriented x3, Cooperative, No apparent distress HEENT: Atraumatic, PERRLA, EOMI, Normocephalic Oral: Moist Mucosa Neck: Supple, No JVD Lungs: Clear to auscultation, Normal air movement, No rhonchi, No wheeze, No rales, Diminished Cardiovascular: Regular rate, Regular Rhythm, Normal S1, Normal S2, No murmurs Abdomen: Soft, Non Tender, Non-Distended, No Hepato-splenomegaly Extremities: No edema, Capillary Refill Less than 3 Seconds Skin: Dressing is clean dry and intact Neurological: Neuro grossly intact, Sensory exam intact to light touch and pain Psych/Mental Status: Normal Affect, Appropriate Microbiology Past 72 Hours 04/12/20 16:26 Tissue - Aerobic & Anaerobic Swabs Gram Stain - Final 04/12/20 16:26 Tissue - Aerobic & Anaerobic Swabs Wound Culture - Prelimin hernan No growth-Final to follow Laboratory Results 04/13/20 10:59: POC Glucose 147 H 04/13/20 12:24: POC Glucose 119 H 04/13/20 13:32: Vancomycin Trough 5.9 08/20/20 15:53: POC Glucose 146 H 04/13/20 21:31: POC Glucose 126 H 04/14/20 06:47: POC Glucose 106 Current Medications Acetaminophen (Tylenol) 650 mg PO Q6H PRN PRN PRN Reason: Pain Score 1-10/Temp > 100.7 F Alprazolam (Xanax) 0.5 mg PO BID PRN PRN Reason: ANXIETY Last Admin: 04/14/20 09:55 Dose: 0.5 mg Documented by: Amlodipine Besylate (Norvasc) 2.5 mg PO DAILY [facility] Last Admin: 04/14/20 09:30 Dose: 2.5 mg Documented by: Atorvastatin Calcium (Lipitor) 40 mg PO QHS [facility] Last Admin: 04/13/20 20:59 Dose: Not Given Documented by: Doxycycline Monohydrate (Doxycycline) 100 mg PO BID [facility] Last Admin: 04/14/20 09:30 Dose: 100 mg Documented by: Heparin Sodium (Porcine) (Heparin Na) 5,000 unit SC Q12 [facility] Last Admin: 04/14/20 09:27 Dose: Not Given Documented by: Insulin Human Lispro (Humalog Kwikpen (Bkc)) 0 unit SC [facility]; Protocol Last Admin: 04/14/20 06:49 Dose: Not Given Documented by: Metoprolol Succinate (Toprol Xl (Beta Margarito)) 150 mg PO DAILY [facility] Last Admin: 04/14/20 09:30 Dose: 150 mg Documented by: Morphine Sulfate () 2 mg IV Q3H PRN PRN PRN Reason: Pain Score 6-10/10 Last Admin: 04/12/20 23:33 Dose: 2 mg Documented by: Ondansetron HCl (Zofran) 4 mg IV Q8H PRN PRN PRN Reason: NAUSEA/VOMITING Oxycodone HCl (Oxyir) 5 mg PO Q4H PRN PRN PRN Reason: Pain Score 4-5/10 Last Admin: 04/13/20 01:48 Dose: 5 mg Documented by: Senna/Docusate Sodium (Senokot-S, Raisa-Colace) 2 tablet PO BID PRN PRN PRN Reason: Constipation Sodium Chloride () 10 - 40 ml IV UD PRN PRN Reason: SALINE FLUSH Last Admin: 04/12/20 23:33 Dose: 10 ml Documented by: Zolpidem Tartrate (Ambien (Generic)) 5 mg PO QHS PRN PRN PRN Reason: INSOMNIA Discharge Activity: Return to Normal Activity Weight Bearing Status: - - Weightbearing heel only on the right Call your doctor if you observe: Fever of 101 or Higher, Shortness of breath, Dizziness, Fainting spells, Swelling in the ankles, Chest pain, Increased palpitations (irregular heartbeat) Home Medications: Medications to take at Discharge Cholecalciferol (VIT D3) [Vitamin D3] 1,000 unit PO DAILY 06/27/19 Vitamin B Complex 1 ea PO DAILY 06/27/19 epinephrine 0.3 mg/0.3 mL injection, auto-injector 0.3 ml IM ONCE 07/21/19 Vitamin E 400 unit PO DAILY 10/22/19 rosuvastatin 20 mg tablet 20 mg PO DAILY #30 tab 10/29/19 metoprolol succinate 50 mg tablet,extended release 24 hr 150 mg PO DAILY tab 01/20/20 alprazolam 0.5 mg tablet 0.5 mg PO BID PRN tab 01/21/20 amlodipine 2.5 mg tablet 2.5 mg PO DAILY #90 tab 02/03/20 Primary Care Physician: Aaron Harper MD [Primary Care Provider] - Please follow up with your Primary Care Physician in: 3-5 days Please Follow Up With: Wild Naranjo DPM When: 1 week Please Follow Up With: wilber When: 1 week Please Follow Up With: Wilber LABS When: 04/17/20 Disposition: Home Minutes spent on discharge:: 35 Patient Condition:: Stable Medical Necessity - Tobacco Use Smoking Status: Light Smoker (<10/day) Tobacco Use: Cigarettes Meaningful Use Info Meaningful Use Diagnoses (Choose all that apply): None applicable Inpatient E&M: 03156 Disch Hosp
--- NOTE | 2020-04-17 13:47 | CASEMGMT ---
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 No answer and no messaging with name identifier. Qasim MAGAÑAN RN ACM
== END 2020-04-14 11:31 | disposition home or self-care (01) | DRG 580 ==
LOC: ED 13:44 → MS3 15:17
PROVIDERS: Anesthesiology; Nurse Practitioner Family; Podiatrist Foot & Ankle Surgery; Admitting Provider Hospitalist; Emergency Provider Emergency Medicine; PCP Family Medicine; Visit Provider Family Medicine
PROC: 0J9Q0ZZ Drainage of Right Foot Subcutaneous Tissue and Fascia, Open Approach (ICD-10-PCS; principal; 2020-04-12 15:00)
DX: S90.31XA Contusion of right foot, initial encounter (principal); L03.115 Cellulitis of right lower limb; I12.9 Hypertensive chronic kidney disease with stage 1 through stage 4 chronic kidney disease, or unspecified chronic kidney disease; N18.3 Chronic kidney disease, stage 3 (moderate); E11.22 Type 2 diabetes mellitus with diabetic chronic kidney disease; E78.5 Hyperlipidemia, unspecified; D63.1 Anemia in chronic kidney disease; W20.8XXD Other cause of strike by thrown, projected or falling object, subsequent encounter; Z79.2 Long term (current) use of antibiotics; K21.9 Gastro-esophageal reflux disease without esophagitis; F17.210 Nicotine dependence, cigarettes, uncomplicated; Z79.899 Other long term (current) drug therapy; G25.0 Essential tremor
CPT/HCPCS: 36415; 71045; 73718; 80048; 80053; 80202; 82962; 83036; 83735; 84100; 85025; 85027; 85610; 85652; 85730; 86140; 87015; 87070; 87075; 87102; 87116; 87205; 87206; 87641; 93005; 94762; 97161; 99251; 99284; J7050; J7120; A4216; G0463; J2405

== ENCOUNTER → 2020-05-11 | Outpatient (CLI) | payer MEDICARE, OTHER, SELFPAY ==
[2020-04-12 07:45] VITALS: BMI 21.4
--- NOTE | 2020-05-11 14:25 | VDLE_ITS ---
Reason For Study: Rt calf pain RIGHT LEFT GSV is normal. CFV is compressible, spontaneous, phasic, CFV is compressible, spontaneous, phasic, competent, and demonstrates normal competent and demonstrates normal augmentation. augmentation. FV is compressible, spontaneous, phasic, competent and demonstrates normal augmentation. POP V is compressible, spontaneous, phasic, competent and demonstrates normal augmentation. T/P Trunk is compressible. PTV is compressible. RT PerV is compressible. Acute deep vein thrombosis is noted in the right soleus vein. Procedure Exam performed in department. A preliminary report was called and/or faxed to [place]. Interpretation Summary Acute deep vein thrombosis is noted in the right soleus vein. The remainder of the right lower extremity deep venous system is patent and compressible. Valvular competence appears intact within the proximal deep venous system on the right . The right great saphenous vein appears patent and compressible segmentally. Ordering Physician: Wild Naranjo Referring Physician: Peter Harper Performed By: Solange Fernandez RVT and Student
== END | disposition home or self-care (01) ==
LOC: CVS 14:21
PROVIDERS: PCP Family Medicine; Referring Provider Podiatrist Foot & Ankle Surgery; Visit Provider Podiatrist Foot & Ankle Surgery
DX: M79.661 Pain in right lower leg (principal); T81.30XA Disruption of wound, unspecified, initial encounter; T14.8XXA Other injury of unspecified body region, initial encounter
CPT/HCPCS: 93971

== ENCOUNTER → 2020-05-12 | Outpatient (CLI) | payer MEDICARE, OTHER, SELFPAY ==
[2020-04-12 07:45] VITALS: BMI 21.4
--- NOTE | 2020-05-12 14:30 | MRI_ITS ---
STUDY: MRI BRAIN WITHOUT CONTRAST REASON FOR EXAM: Female, 74 years old. Current blood clot in calf, recent surgery, new H/A. Known Cavernous malformation of brain TECHNIQUE: Standardized multiplanar fat and water weighted pulse sequences were obtained. COMPARISON: None. FINDINGS: There is mild cerebral atrophy with widening of the extra-axial spaces and ventricular dilatation. There are a limited number of small white matter hyperintensities, distributed throughout the deep white matter tracts of the cerebral hemispheres, consistent with mild chronic white matter ischemic changes. There is no evidence for recent intracranial ischemia or other cause of cytotoxic edema on diffusion weighted imaging (DWI). Normal T2* images of the brain without demonstrated susceptibility artifact. There is no demonstrated hemosiderin stain. Normal bilateral basal ganglia. Normal thalami. There is no extra-axial fluid accumulation. Normal flow voids within the major intracranial circulation suggesting patency by spin echo criteria. Normal sella turcica, pituitary gland, infundibular stalk, optic chiasm and hypothalamus. Normal tectal plate and pineal gland. Normal midbrain, alistair and medulla. Normal cerebellum. Normal basal cisterns. Normal bilateral temporal bones. Normal bilateral internal auditory canals. There are bilateral ocular lens implants with otherwise normal intraorbital contents. Normal visualized paranasal sinuses. Normal calvarium and skull base. Normal visualized soft tissue structures. Normal visualized upper cervical spine. MRI/Brain without Contrast IMPRESSION: Involutional changes of the brain, as described above. Electronically Signed: Raphael Molina MD at 15:50 EDT Tel , Service support ,
== END | disposition home or self-care (01) ==
LOC: MRI 13:47
PROVIDERS: PCP Family Medicine; Referring Provider Family Medicine; Visit Provider Family Medicine
DX: Q28.3 Other malformations of cerebral vessels (principal)
CPT/HCPCS: 70551

== ENCOUNTER 2020-05-13 09:29 | Emergency (ER) | payer MEDICARE, OTHER, SELFPAY ==
[2020-04-12 07:45] VITALS: BMI 21.4
[2020-05-13 09:31] VITALS: BP 142/95; PULSE 83; RESP 17; TEMP 36.3; O2SAT 100; BMI 21.5
--- NOTE | 2020-05-13 10:07 | VDLE_ITS ---
Reason For Study: DVT RIGHT GSV is normal. CFV is compressible, spontaneous, phasic, competent and demonstrates normal augmentation. FV is compressible, spontaneous, phasic, competent and demonstrates normal augmentation. POP V is compressible, spontaneous, phasic, competent and demonstrates normal augmentation. T/P Trunk is compressible. PTV is compressible. RT PerV is compressible. Soleus V is dilated and noncompressible. No change from previous study. Procedure Exam performed portable in ED. The exam was abbreviated due to the COVID 19 protocol. The exam was diagnostic. A preliminary report was called and/or faxed to Ambreen Paredes. Interpretation Summary Acute deep vein thrombosis is noted in the right soleus vein. The remainder of the right lower extremity deep venous system is patent and compressible. Valvular competence appears intact within the proximal deep venous system on the right . The right great saphenous vein appears patent and compressible segmentally. There has been no change since a prior study on 05/11/2020. Ordering Physician: Ambreen Paredes Performed By: Tereso Hansen RVT
--- NOTE | 2020-05-13 10:08 | ED.DCSUM_ITS ---
History of Present Illness Chief Complaint: Lower Extremity Injury Informant: Patient Narrative: 4-year-old female past medical history of HTN, HLD, DM 2, stage III kidney disease, recently diagnosed DVT presents with complaints of increased right lower extremity swelling and redness. She states she had right foot surgery a month ago to evacuate a hematoma and then a few days ago developed right calf pain. She had an ultrasound which showed a lower calf DVT. She is on Lovenox bridging to Coumadin. Yesterday, the redness and swelling of her calf progressed. She sent pictures to her laser printing operator who called her in doxycycline with concern for cellulitis. She states today the redness is actually decreased. Denies pain, shortness of breath, fevers, chills, nausea, vomiting, or new injury. Past Medical History - Allergies and Home Meds Allergies/Adverse Reactions: Allergies bee venom protein (honey bee) Allergy (Verified 05/13/20 09:31) Rash fluconazole Allergy (Verified 05/13/20 09:31) heart racing Iodine and Iodide Containing Produc Allergy (Verified 05/13/20 09:31) Unknown lisinopril Allergy (Verified 05/13/20 09:31) Rash Penicillins Allergy (Verified 05/13/20 09:31) Unknown shellfish derived Allergy (Verified 05/13/20 09:31) Other ciprofloxacin [From Cipro] Adverse Reaction (Verified 05/13/20 09:31) Diarrhea clindamycin Adverse Reaction (Verified 05/13/20 09:31) Diarrhea glimepiride Adverse Reaction (Verified 05/13/20 09:31) Other MAKES ME DRUNK Sulfa (Sulfonamide Antibiotics) Adverse Reaction (Verified 05/13/20 09:31) Diarrhea Primary Care Physician: Aaron Harper MD [Primary Care Provider] - Surgical History: hysterectomy, tonsillectomy, - - Laminectomy. Smoking Status: Light Smoker (<10/day) - Family History Maternal Family History: Reports: No pertinent history Paternal Family History: Reports: No pertinent history Review of Systems General: Denies: Chills, Fever, Sweats Eyes: Denies: Visual changes - bilaterally, Diplopia ENT: Denies: Rhinorrhea, Sore throat Cardiovascular: Denies: Chest pain, Palpitations Respiratory: Denies: Dyspnea, Cough, Dyspnea on exertion Gastrointestinal: Denies: Abdominal pain, Nausea, Vomiting, Diarrhea, Melena, Hematochezia Genitourinary: Denies: Dysuria, Hematuria, Frequency Musculoskeletal: Reports: Swelling, Extremity Pain. Denies: Back pain Skin: Denies: Rash, Abscess, Wounds Neurological: Denies: Headache, Weakness, Numbness Physical Exam Vital Signs/Narrative: Vital Signs Temp Pulse Resp BP Pulse Ox 05/13/20 09:31 97.4 F L 83 17 142/95 H 100 Inital Vital Signs reviewed: Yes General: Well nourished, Well developed, No Acute Distress Head: Normocephalic, Atraumatic Eyes: Perrl, EOMI ENT: Moist mucous membranes, No rhinorrhea Neck: Supple, Nontender Cardiovascular: Regular rate, Regular rhythm, No murmurs Respiratory: No distress, CTA bilaterally, Chest nontender Abdomen: Soft, Nontender, Nondistended, Normal bowel sounds Back: Nontender, Normal Inspection Extremities: - - Right calf edema, very mild erythema within demarcated area Skin: Normal color, No rash Neurological: Alert, Oriented x3, Cranial nerves II-XII grossly intact, Normal Strength, Normal Sensation Psychological: Normal affect, Normal Mood Diagnostic/Tx/Re-eval Laboratory Data 05/13/20 05/13/20 10:15 11:16 PT Cancelled 14.0 INR Cancelled 1.1 - Medical Decision Making Patient has a known right calf DVT and presented with increased swelling and erythema. She showed me a picture of the leg from yesterday and actually looks significantly improved. She appears well nontoxic. Vital signs stable. Ultrasound showed no clot progression. INR was checked and is 1.1. She is on an appropriate dose of Lovenox and is bridging to Coumadin and thus far has only taken 1 dose. I advised her to continue this and to follow-up with her PCP. There are no signs of infection today but since the erythema did improve while on Doxy she can continue this as well. She was agreeable with this plan and discharged home in stable condition. ED Disposition - Plan for ED Patient: Disposition: Home or Assisted Living Diagnosis: DVT (deep venous thrombosis) Referrals: Aaron Harper MD [Primary Care Provider] -
[2020-05-13 11:41] LABS: International Normalized Ratio 1.1
[2020-05-13 13:31] VITALS: BP 140/74; PULSE 68; RESP 15; O2SAT 97
== END 2020-05-13 13:32 | disposition home or self-care (01) ==
PROVIDERS: Emergency Provider Physician Assistant; PCP Family Medicine
DX: I82.4Z1 Acute embolism and thrombosis of unspecified deep veins of right distal lower extremity (principal); E78.5 Hyperlipidemia, unspecified; I12.9 Hypertensive chronic kidney disease with stage 1 through stage 4 chronic kidney disease, or unspecified chronic kidney disease; E11.22 Type 2 diabetes mellitus with diabetic chronic kidney disease; N18.3 Chronic kidney disease, stage 3 (moderate); F17.200 Nicotine dependence, unspecified, uncomplicated; Z79.02 Long term (current) use of antithrombotics/antiplatelets; Z79.01 Long term (current) use of anticoagulants; Z79.899 Other long term (current) drug therapy
CPT/HCPCS: 85610; 93971; 99282

== ENCOUNTER → 2020-05-17 | Outpatient (CLI) | payer MEDICARE, OTHER, SELFPAY ==
[2020-05-13 09:31] VITALS: BMI 21.5
[2020-05-19 09:40] LABS: Cancer Antigen 125 15.9 U/mL (0.0-38.1)
== END | disposition home or self-care (01) ==
LOC: WOBLAB 15:06
PROVIDERS: PCP Family Medicine; Visit Provider Obstetrics & Gynecology
DX: N83.202 Unspecified ovarian cyst, left side (principal); R19.09 Other intra-abdominal and pelvic swelling, mass and lump
CPT/HCPCS: 36415; 86304

== ENCOUNTER 2020-05-18 22:36 | Emergency (ER) | payer MEDICARE, OTHER, SELFPAY ==
[2020-05-18 22:36] VITALS: BP 156/93; PULSE 74; RESP 18; TEMP 36.3; O2SAT 99; BMI 21.2
--- NOTE | 2020-05-18 23:41 | ED.VIS.GEN ---
History of Present Illness Chief Complaint: Lower Extremity Injury Detail of Chief Complaint: pain RLE Informant: Patient Onset: Today Context: Gradual Onset Timing: Continuous Quality: sore Location: R medial thigh Current Severity: Mild Maximum Severity: Mild Worsened by: palpation of affected area R medial thigh Relieved by: leaving alone Associated Symptoms: see below Narrative: Patient recently had surgery in her right foot, apparently she had a traumatic hematoma that would not heal and it was evacuated. Subsequently 1 week ago, she had pain and swelling in her right calf and had an ultrasound showing a DVT. She was started on Coumadin and Lovenox which she has been taking ever since, her INR slowly increasing and she has been compliant with her Lovenox. She states the swelling is gone, and within the last couple days she noticed that the pain in her right calf is also gone but today she noticed a soreness more proximally in her right medial thigh if her DVT moved up, or what is going on. Initially she denies any other new symptoms, however it when discussing review of systems, she admits to feeling a little more short of breath than usual. She has had no chest pain, fevers, chills, syncope, or other systemic symptoms. She denies any bleeding. With regards to her dyspnea, she states she has experienced relatively brief dyspnea for the last 2 years intermittently that is associated with palpitations that have been diagnosed as some type of atrial rhythm problem, according to the patient's description. She states she feels a little short of breath while her heart recalibrates. She states today she is felt a little short of breath at times in a similar fashion but without the usual palpitations. She does not feel dyspneic now, even with exertion. She states with regards to her right foot surgical area, which is wrapped and in a postop shoe, things have been continuously improving since her surgery, just healing slowly given her diabetes. - Past Medical History (1) Traumatic hematoma of right foot Status: Acute (2) Anemia Status: Chronic (3) Bilateral carotid artery stenosis Status: Chronic (4) Ectopic atrial rhythm Status: Chronic (5) Essential (primary) hypertension Status: Chronic (6) Hyperlipidemia Status: Chronic (7) Stage III chronic kidney disease Status: Chronic (8) Type 2 diabetes mellitus Status: Chronic Past Medical History - Allergies and Home Meds Allergies/Adverse Reactions: Allergies bee venom protein (honey bee) Allergy (Verified 05/18/20 22:41) Rash fluconazole Allergy (Verified 05/18/20 22:41) heart racing Iodine and Iodide Containing Produc Allergy (Verified 05/18/20 22:41) Unknown lisinopril Allergy (Verified 05/18/20 22:41) Rash Penicillins Allergy (Verified 05/18/20 22:41) Unknown shellfish derived Allergy (Verified 05/18/20 22:41) Other ciprofloxacin [From Cipro] Adverse Reaction (Verified 05/18/20 22:41) Diarrhea clindamycin Adverse Reaction (Verified 05/18/20 22:41) Diarrhea glimepiride Adverse Reaction (Verified 05/18/20 22:41) Other MAKES ME DRUNK Sulfa (Sulfonamide Antibiotics) Adverse Reaction (Verified 05/18/20 22:41) Diarrhea Primary Care Physician: Aaron Harper MD [Primary Care Provider] - Surgical History: hysterectomy, tonsillectomy, - - Laminectomy. Lives: Alone Smoking Status: Current every day smoker Drugs: None - Family History Maternal Family History: Reports: No pertinent history Paternal Family History: Reports: No pertinent history Review of Systems General: Denies: Chills, Fever, Sweats Eyes: Denies: Visual changes - bilaterally, Diplopia ENT: Denies: Rhinorrhea, Sore throat Cardiovascular: Reports: Palpitations - Commonly but not today. Denies: Chest pain, Heart racing Respiratory: Reports: Dyspnea - See HPI. Denies: Cough, Sputum, Dyspnea on exertion, Orthopnea Gastrointestinal: Denies: Abdominal pain, Nausea, Vomiting, Diarrhea, Melena, Hematochezia Genitourinary: Denies: Dysuria, Hematuria, Frequency Musculoskeletal: Reports: Extremity Pain. Denies: Back pain, Swelling Skin: Denies: Rash, Abscess Neurological: Denies: Headache, Weakness, Numbness Physical Exam Vital Signs/Narrative: Vital Signs Temp Pulse Resp BP Pulse Ox 05/18/20 22:36 97.4 F L 74 18 156/93 H 99 Inital Vital Signs reviewed: Yes General: Well nourished, Well developed, No Acute Distress Head: Normocephalic, Atraumatic Eyes: Perrl, EOMI ENT: Moist mucous membranes, No rhinorrhea Neck: Supple, Nontender, No lymphadenopathy Cardiovascular: Regular rate, Regular rhythm, No murmurs. Negative for: Tachycardia Respiratory: No distress, CTA bilaterally, Chest nontender Abdomen: Soft, Nontender, Nondistended, Normal bowel sounds Back: Nontender, Normal Inspection Extremities: Nontender, No edema, - - Right foot wrapped with postop shoe left intact. No visible abnormality right thigh, no palpable cords or other abnormal lesion in the area of pain right mid medial thigh.. Negative for: Calf Tenderness Skin: Normal color, No rash, No Trauma Neurological: Alert, Oriented x3, Cranial nerves II-XII grossly intact, Normal Strength, Normal Sensation, Normal Gait, - - Tremor with regards to head Psychological: Normal affect, Normal Mood Diagnostic/Tx/Re-eval - Medical Decision Making I discussed at length with this patient. Initially, I discussed the possibility that we could obtain CT angiography of her chest which would necessitate blood work to make sure her kidney function is okay, in addition to an ultrasound of her right lower extremity. However she said that she is allergic to iodine, she states she does not know the exact reaction but does not think it is anaphylactic, and is hesitant to undergo CT angiography. We did discuss the possibility that if she has a pulmonary embolus, we do not know when it occurred, and certainly it could have been there since before she started her anticoagulation 1 week ago. It would be difficult to determine if she failed Lovenox or not. Furthermore, her vital signs are fairly normal and she is not tachycardic or hypoxic or tachypneic, all of which makes an acute pulmonary embolus less likely. Unfortunately, ultrasound of the venous system of the legs is not available at the time the patient presents. Therefore, she preferred to leave, I offered to get her an outpatient ultrasound to reevaluate her right lower extremity to be obtained in the morning during business hours, and she is fine with that. We discussed signs and symptoms to return emergently with to the ER, and she is comfortable with that plan. ED Disposition - Plan for ED Patient: Disposition: Home or Assisted Living Diagnosis: Right thigh pain Instructions: ED ACHING MUSCLES, Treating Deep Vein Thrombosis Referrals: Aaron Harper MD [Primary Care Provider] - As soon as possible (after ultrasound tomorrow -- see accompanying paperwork)
== END 2020-05-19 00:09 | disposition home or self-care (01) ==
LOC: ED 05-19 00:06
PROVIDERS: Emergency Provider Emergency Medicine; PCP Family Medicine
DX: M79.651 Pain in right thigh (principal); I12.9 Hypertensive chronic kidney disease with stage 1 through stage 4 chronic kidney disease, or unspecified chronic kidney disease; E11.22 Type 2 diabetes mellitus with diabetic chronic kidney disease; N18.3 Chronic kidney disease, stage 3 (moderate); E78.5 Hyperlipidemia, unspecified; F17.200 Nicotine dependence, unspecified, uncomplicated; Z79.01 Long term (current) use of anticoagulants; Z79.899 Other long term (current) drug therapy
CPT/HCPCS: 85610; 99282

== ENCOUNTER → 2020-05-18 | Outpatient (CLI) | payer MEDICARE, OTHER, SELFPAY ==
[2020-05-13 09:31] VITALS: BMI 21.5
[2020-05-18 14:09] LABS: International Normalized Ratio 1.8; Prothrombin Time (Protime)PT. 20.4 SECONDS (11.7-14.9)
== END | disposition home or self-care (01) ==
LOC: LABSPEC 13:52
PROVIDERS: PCP Family Medicine; Referring Provider Family Medicine; Visit Provider Family Medicine
DX: I48.0 Paroxysmal atrial fibrillation (principal); I82.4Y1 Acute embolism and thrombosis of unspecified deep veins of right proximal lower extremity
CPT/HCPCS: 85610

== ENCOUNTER → 2020-05-19 | Outpatient (CLI) | payer MEDICARE, OTHER, SELFPAY ==
[2020-05-18 22:36] VITALS: BMI 21.2
--- NOTE | 2020-05-19 09:27 | VDLE_ITS ---
Reason For Study: Pain RIGHT GSV is normal. CFV is compressible, spontaneous, phasic, competent and demonstrates normal augmentation. FV is compressible, spontaneous, phasic, competent and demonstrates normal augmentation. POP V is compressible, spontaneous, phasic, competent and demonstrates normal augmentation. T/P Trunk is compressible. PTV is compressible. RT PerV is compressible. Acute deep vein thrombosis is noted in the right soleus vein. Procedure Exam performed in department. Compared to 05/13/2020. A preliminary report was called and/or faxed to [facility]. Pt seen in ED 05/18/2020. Interpretation Summary Acute deep vein thrombosis is noted in the right soleus vein. The remainder of the right lower extremity deep venous system is patent and compressible. Valvular competence appears intact within the proximal deep venous system on the right . The right great saphenous vein appears patent and compressible segmentally. There has been no significant change since a prior study on 05/13/2020. Ordering Physician: Dedrick Farah Referring Physician: Peter Harper Performed By: Solange Fernandez RVT
== END | disposition home or self-care (01) ==
LOC: CVS 09:26
PROVIDERS: PCP Family Medicine; Referring Provider Emergency Medicine; Visit Provider Emergency Medicine
DX: I82.461 Acute embolism and thrombosis of right calf muscular vein (principal)
CPT/HCPCS: 93971

== ENCOUNTER → 2020-05-22 | Outpatient (CLI) | payer MEDICARE, OTHER, SELFPAY ==
[2020-05-18 22:36] VITALS: BMI 21.2
[2020-05-22 15:31] LABS: International Normalized Ratio 2.9; Prothrombin Time (Protime)PT. 29.8 SECONDS (11.7-14.9)
== END | disposition home or self-care (01) ==
PROVIDERS: PCP Family Medicine; Referring Provider Family Medicine; Visit Provider Family Medicine
DX: I82.461 Acute embolism and thrombosis of right calf muscular vein (principal)
CPT/HCPCS: 85610

== ENCOUNTER → 2020-06-02 | Outpatient (CLI) | payer MEDICARE, OTHER, SELFPAY ==
[2020-05-18 22:36] VITALS: BMI 21.2
--- NOTE | 2020-06-02 17:06 | MRI_ITS ---
STUDY: MRI BRAIN WITHOUT CONTRAST REASON FOR EXAM: Female, 74 years old. Abnormal imaging follow-up TECHNIQUE: Standardized multiplanar fat and water weighted pulse sequences were obtained. COMPARISON: May 12 2020 FINDINGS: There is a small acute infarct in the superior lateral aspect of the left lentiform nucleus measuring 8 x 2 mm. This is new since recent prior. There is no acute territorial infarct, mass effect or midline shift. Ventricles are normal. There is an 8 mm right cerebellar lesion with isointense T1 and low T2 mildly low gradient signal characteristic with minimal adjacent encephalomalacia. The lesion is stable since recent prior. There are mild white matter chronic gliotic involutional changes. MRI/Brain without Contrast IMPRESSION: 1. Small left lentiform nucleus acute infarct. 2. Stable right cerebellar lesion, possibly cavernous angioma. Electronically Signed: Alia Myers, at 18:24 EDT Tel , Service support ,
[2020-06-05 07:13] LABS: CREATININE FINGERSTICK 1.03 mg/dL (0.55-1.02); EGFR FINGERSTICK 56 mL/min (>60)
== END | disposition home or self-care (01) ==
LOC: MRI 16:45
PROVIDERS: PCP Family Medicine
DX: R93.0 Abnormal findings on diagnostic imaging of skull and head, not elsewhere classified (principal)
CPT/HCPCS: 70551

== ENCOUNTER → 2020-06-16 | Outpatient (CLI) | payer MEDICARE, OTHER, SELFPAY ==
[2020-05-18 22:36] VITALS: BMI 21.2
[2020-06-13 09:25] VITALS: BMI 21.2
--- NOTE | 2020-06-16 12:53 | CDU_ITS ---
Reason For Study: Stroke Rt. Velocities/BP Lt. Velocities/BP Prox CCA 81.6/ 8.6 cm/sec. Prox CCA 103.9/ 17.9 cm/sec. Mid CCA 60.8/ 13.8 cm/sec. Mid CCA 85.5/ 16.7 cm/sec. Dist CCA 53.4/ 14.9 cm/sec. Dist CCA 127.1/ 24.8 cm/sec. Prox ICA 79.3/ 19.2 cm/sec. Prox ICA 132.6/ 26.7 cm/sec. Mid ICA 83.0/ 22.8 cm/sec. Mid ICA 83.3/ 19.4 cm/sec. Dist ICA 72.0/ 19.2 cm/sec. Dist ICA 81.8/ 25.3 cm/sec. Rt. ICA/CCA = 1.37. Lt. ICA/CCA = 1.28. Prox ECA 97.3/ 7.1 cm/sec. Prox ECA 190.6/ 9.3 cm/sec. Rt. Vert. 43.8/ 10.4 cm/sec. Lt. Vert. 53.4/ 13.8 cm/sec. Right Extracranial There is heterogeneous, irregular atherosclerotic plaque noted in the right common carotid artery. There is heterogeneous, irregular atherosclerotic plaque noted in the right internal carotid artery. There is heterogeneous, irregular atherosclerotic plaque noted in the right external carotid artery. The atherosclerotic plaque causes acoustic shadowing. Antegrade flow is noted in the right vertebral artery. Left Extracranial There is heterogeneous, irregular atherosclerotic plaque noted in the left common carotid artery. There is heterogeneous, irregular atherosclerotic plaque noted in the left internal carotid artery. There is heterogeneous, irregular atherosclerotic plaque noted in the left external carotid artery. The atherosclerotic plaque causes acoustic shadowing. Antegrade flow is noted in the left vertebral artery. Procedure Carotid Duplex 44566. This is a Carotid Duplex examination using B-mode, color flow and specral Doppler. Exam performed in department. Interpretation Summary Irregular calcific plaque at the proximal right internal carotid artery with less than 50% stenosis. <50% stenosis right external carotid Irregular heterogenous calcific plaque at the proximal left internal carotid artery with 50 to 69% stenosis. <50% stenosis left external carotid Patent and antegrade vertebrals bilaterally Findings do not demonstrate any progression of disease from the previous carotid duplex exam of October 28, 2019 Ordering Physician: Etelvina Miller Referring Physician: Peter Harper Performed By: Solange Fernandez RVT and Student
--- NOTE | 2020-06-16 12:54 | ECHOD_ITS ---
Reason For Study: STROKE Procedure This was a 2D Doppler, Color Flow transthoracic echocardiogram. Exam performed in department. Left Ventricle Normal LV size. Left ventricular systolic function is normal. The estimated ejection fraction is 60 %. Stage 2 diastolic dysfunction. No regional wall motion abnormalities noted. Right Ventricle Normal RV size. Normal systolic function. Atria Normal left atrium. Normal right atrium. Bubble contrast study negative for right to left interatrial shunt. Mitral Valve There is mild to moderate mitral annular calcification. Mild (1+) eccentric mitral valve insufficiency. Tricuspid Valve Normal tricuspid valve. Mild to moderate (1-2+) tricuspid valve insufficiency. Pulmonary artery systolic pressure is 44 mmHg. Aortic Valve Trisinus/trileaflet aortic valve. Mild (1+) aortic valve insufficiency. Pulmonic Valve The pulmonic valve is not well visualized. Great Vessels Normal aortic root. The pulmonary artery is normal size. Normal inferior vena cava. Pericardium/Pleural No pericardial effusion. Medication 22 gauge I.V. with prn adaptor inserted into right arm. Performed a rapid injection of agitated mix of 9 cc saline and 1cc air to assess for atrial septal defect. MMode/2D Measurements & Calculations LVIDd: 4.6 cm IVSd: 0.93 cm Ao root diam: 3.1 cm LVIDs: 2.9 cm LVPWd: 0.92 cm RVDd: 2.8 cm FS: 37.4 % LAV(MOD-bp): 38.9 ml LA A4 area: 14.0 cm2 LA dimension(2D): 4.2 cm LAV(MOD-bp) Indexed: 24.6 ml/m2 LAV(MOD-sp2): 45.5 ml LAV(MOD-sp4): 31.9 ml RA A4 area: 11.0 cm2 Time Measurements MV dec time: 0.19 sec Doppler Measurements & Calculations MV E max festus: 68.3 cm/sec Lat Peak E' Festus: 7.9 cm/sec Med Peak E' Festus: 5.9 cm/sec MV A max festus: 47.2 cm/sec E/E' lat: 8.7 E/E' med: 11.5 MV E/A: 1.4 MV V2 max: 82.8 cm/sec Ao V2 max: 121.4 cm/sec AI max festus: 384.8 cm/sec MV max P.7 mmHg Ao max P.9 mmHg AI max P.3 mmHg MV V2 mean: 44.8 cm/sec AI dec slope: 203.4 cm/sec2 MV mean P.94 mmHg AI P1/2t: 554.0 msec MV V2 VTI: 21.4 cm LV V1 max: 121.9 cm/sec PA V2 max: 88.1 cm/sec TR max festus: 311.8 cm/sec LV V1 max P.9 mmHg TR max P.9 mmHg MV P1/2t-pr_phl: 143.1 msec Interpretation Summary Normal LV size. Left ventricular systolic function is normal. The estimated ejection fraction is 60 %. Stage 2 diastolic dysfunction. Bubble contrast study negative for right to left interatrial shunt. Ordering Physician: YUNG COLÓN Referring Physician: HALIMA JIMENEZ Performed By: Karen Lee, CHELSEA, RVT
== END | disposition home or self-care (01) ==
PROVIDERS: PCP Family Medicine
DX: I51.9 Heart disease, unspecified (principal); I65.23 Occlusion and stenosis of bilateral carotid arteries; I63.9 Cerebral infarction, unspecified
CPT/HCPCS: 93306; 93880; Q9957; A4216

== ENCOUNTER → 2020-06-28 10:51 | Outpatient (CLI) | payer MEDICARE, OTHER, SELFPAY ==
[2020-06-27 09:59] VITALS: BMI 21.1
--- NOTE | 2020-06-28 10:52 | VDLE_ITS ---
Reason For Study: Pain Procedure LEFT This is a venous duplex using B-mode, color GSV is normal. flow and spectral Doppler. CFV is compressible, spontaneous, phasic, Exam performed in department. competent, and demonstrates normal A preliminary report was called and/or faxed augmentation. to [facility]. FV is compressible, spontaneous, phasic, competent and demonstrates normal augmentation. POP V is compressible, spontaneous, phasic, competent and demonstrates normal augmentation. T/P Trunk is compressible. PTV is compressible. LT PerV is compressible. Interpretation Summary There is no evidence of left lower extremity deep vein thrombosis. Left great saphenous vein appears patent and compressible segmentally. Ordering Physician: Komal Novoa Referring Physician: Komal Novoa Performed By: Solange Fernandez RVT
== END ==
PROVIDERS: PCP Internal Medicine; Referring Provider Internal Medicine; Visit Provider Internal Medicine
DX: L03.115 Cellulitis of right lower limb (principal)
CPT/HCPCS: 93971

== ENCOUNTER → 2020-07-14 10:52 | Outpatient (CLI) | payer MEDICARE, OTHER, SELFPAY ==
[2020-07-14 08:38] VITALS: BMI 21.1
--- NOTE | 2020-07-14 10:55 | EKG12_ITS ---
Test Reason : ROUTINE Blood Pressure : / mmHG Vent. Rate : 066 BPM Atrial Rate : 066 BPM P-R Int : 140 ms QRS Dur : 068 ms QT Int : 382 ms P-R-T Axes : 000 -33 -16 degrees QTc Int : 400 ms Normal sinus rhythm Left axis deviation Septal infarct , age undetermined Abnormal ECG Confirmed by PARAM CELIS, LAKESHA ([id number]), clinical editor LAMONTE SHARPE ([id number]) on 07/17/2020 10:36:35 AM Referred By: Ghassan Mitchell Confirmed By:LAKESHA VIRGEN MD
--- NOTE | 2020-07-14 11:17 | RAD_ITS ---
STUDY: X-RAY CHEST REASON FOR EXAM: Female, 74 years old. COUGH, CHEST PAIN, PARALLELIZED VOCAL CORDS TECHNIQUE: PA and lateral views of the chest. COMPARISON: Comparison is made with prior study 04/11/2020. FINDINGS: Hyperinflation. The lungs are clear. There is no demonstrated pleural abnormality. Normal size heart. Calcified right hilar lymph nodes. Normal visualized pulmonary arteries. There is atherosclerotic calcification of the aortic arch with tortuosity. There is demineralization of the osseous structures. Normal visualized ribs, clavicles, and shoulders. There is no demonstrated abnormality of the visualized soft tissue structures of the upper abdomen. RAD/Chest PA and Lateral IMPRESSION: Hyperinflation. No acute abnormality is seen. Electronically Signed: Kamlesh Rhodes, at 14:55 EST , Service support ,
== END ==
PROVIDERS: PCP Internal Medicine; Referring Provider Nurse Practitioner Family; Visit Provider Nurse Practitioner Family
DX: R05 Cough (principal); R07.9 Chest pain, unspecified
CPT/HCPCS: 71046; 93005

== ENCOUNTER → 2020-07-24 08:09 | Outpatient (CLI) | payer MEDICARE, OTHER, SELFPAY ==
[2020-06-27 09:59] VITALS: BMI 21.1
[2020-07-14 08:38] VITALS: BMI 21.1
--- NOTE | 2020-07-24 08:18 | CT_ITS ---
STUDY: CT BRAIN WITHOUT CONTRAST REASON FOR EXAM: Female, 74 years old. CEREBRAL INFARCTION RADIATION DOSAGE (If Supplied By Facility): CTDIvol = ( 44.99 ) mGy, DLP = ( 762.36 ) mGycm TECHNIQUE: Transaxial CT imaging of the brain was performed without administration of intravenous contrast material. Individualized dose optimization techniques were used for this CT. COMPARISON: No relevant priors. FINDINGS: Normal soft tissue structures. Normal calvarium. There is mild cerebral atrophy with widening of the extra-axial spaces and ventricular dilatation. Normal white matter tracts of the cerebral hemispheres. Normal basal ganglia and thalami. Normal brainstem. Normal cerebellum. There is no intracranial hemorrhage. There are no findings of an acute ischemic infarction. Dense atherosclerotic calcification of the left vertebral artery as well as the cavernous portions of the internal carotid arteries bilaterally. Normal visualized paranasal sinuses. CT/Brain/Head without Contrast IMPRESSION: Chronic involutional changes of the brain. Electronically Signed: Kamlesh Rhodes, at 10:05 EST , Service support ,
== END ==
PROVIDERS: PCP Internal Medicine
DX: I69.398 Other sequelae of cerebral infarction (principal)
CPT/HCPCS: 70450

== ENCOUNTER 2020-07-24 08:12 | Outpatient (RCR) | payer MEDICARE, OTHER, SELFPAY ==
[2020-07-14 08:38] VITALS: BMI 21.1
[2020-07-15 11:14] LABS: Hemoglobin 12.3 g/dL (12.0-15.0)
[2020-07-15 11:20] LABS: International Normalized Ratio 1.1; Prothrombin Time (Protime)PT. 13.9 SECONDS (11.7-14.9)
[2020-07-15 18:48] LABS: Xtra Tube EP Lab EXTRA TUBE
[2020-07-19 12:00] LABS: International Normalized Ratio 1.3; Prothrombin Time (Protime)PT. 15.4 SECONDS (11.7-14.9)
[2020-07-24 09:40] LABS: Absolute Neutrophil Count 4.7 X10^3/uL (2.0-7.7); Basophil# 0.03 X10^3/uL; Basophil% 0.5 % (0-1); Eosinophil# 0.01 X10^3/uL; Eosinophils% 0.2 % (0-5); Hematocrit 41.1 % (37-47); Hemoglobin 12.6 g/dL (12.0-15.0); Lymphocyte % 22.5 % (19-41); Mean Corp Hgb Conc 30.7 g/dL (32-36); Mean Corpuscular Hgb 28.2 pg (27.0-32.0); Mean Corpuscular Volume 91.9 fL (81-99); Mean Platelet Vol. 11.4 fl (6.2-12.0); Monocyte# 0.46 X10^3/uL; Monocyte% 6.9 % (0-10); NRBC Flagged by Analyzer 0 % (0-5); Neutrophil # 4.65 X10^3/uL (2.7-7.7); Neutrophil % 69.7 % (47-70); Platelet Count 175 K/mm3 (150-450); RBC Distribution Width SD 43.8 fl (35.1-43.9); Red Blood Count 4.47 M/mm3 (4.2-5.4); White Blood Count 6.7 K/mm3 (4.4-11.0)
[2020-07-24 09:51] LABS: Protein, Urine (Random) 203.5 mg/dL (<11.9); Protein:Creat Ratio 1357 mg/g CRE (0-200)
[2020-07-24 09:57] LABS: International Normalized Ratio 1.3; Prothrombin Time (Protime)PT. 15.9 SECONDS (11.7-14.9)
[2020-07-24 10:02] LABS: PTHIN 61.5 pg/mL (18.4-80.1)
[2020-07-24 10:05] LABS: Anion Gap 3 (5-15); BUN 39 mg/dL (7-18); BUN/Creat Ratio 34.5 RATIO (10-20); Calcium,Total 9.4 mg/dL (8.5-10.1); Chloride 109 mmol/L (98-107); Creatinine, Serum 1.13 mg/dL (0.55-1.02); EST Glomerular Filtration Rate 50 mL/min (>60); Est Glom Filt Rate - Afr Amer 61 mL/min (>60); Glucose 127 mg/dL (74-106); Potassium 3.9 mmol/L (3.5-5.1); Sodium Level 140 mmol/L (136-145)
[2020-07-24 10:06] LABS: Vitamin D,25 Hydroxy 54.9 ng/mL
== END 2020-07-24 18:00 | disposition home or self-care (01) ==
LOC: LAB 08:12
PROVIDERS: PCP Internal Medicine; Referring Provider Internal Medicine; Visit Provider Internal Medicine
DX: I82.401 Acute embolism and thrombosis of unspecified deep veins of right lower extremity (principal); E11.21 Type 2 diabetes mellitus with diabetic nephropathy; E11.22 Type 2 diabetes mellitus with diabetic chronic kidney disease; N18.31 Chronic kidney disease, stage 3a; I69.398 Other sequelae of cerebral infarction; D64.9 Anemia, unspecified
CPT/HCPCS: 36415; 70450; 80048; 82306; 82570; 83970; 84156; 85018; 85025; 85610

== ENCOUNTER 2020-08-01 06:25 | Day surgery (SDC) | payer MEDICARE, OTHER, SELFPAY ==
[2020-07-14 08:38] VITALS: BMI 21.1
[2020-07-28 11:07] LABS: Hemoglobin 12.3 g/dL (12.0-15.0); Mean Corp Hgb Conc 30.8 g/dL (32-36); Mean Corpuscular Hgb 28.3 pg (27.0-32.0); Mean Corpuscular Volume 92.2 fL (81-99); Mean Platelet Vol. 11.2 fl (6.2-12.0); Platelet Count 166 K/mm3 (150-450); RBC Distribution Width SD 44.3 fl (35.1-43.9); Red Blood Count 4.34 M/mm3 (4.2-5.4); White Blood Count 6.5 K/mm3 (4.4-11.0)
[2020-07-28 11:20] LABS: Anion Gap 5 (5-15); BUN 38 mg/dL (7-18); BUN/Creat Ratio 36.2 RATIO (10-20); Calcium,Total 9.3 mg/dL (8.5-10.1); Chloride 109 mmol/L (98-107); Creatinine, Serum 1.05 mg/dL (0.55-1.02); EST Glomerular Filtration Rate 55 mL/min (>60); Est Glom Filt Rate - Afr Amer 66 mL/min (>60); Glucose 153 mg/dL (74-106); Potassium 3.7 mmol/L (3.5-5.1); Sodium Level 142 mmol/L (136-145)
[2020-08-01 06:57] VITALS: BP 123/58; PULSE 58; RESP 16; TEMP 36.9; O2SAT 100; BMI 21.1
[2020-08-01] MEDS: Lactated Ringers 1,000 ML 100 ML IV (07:10)
[2020-08-01 08:16] LABS: Bedside Glucose 99 mg/dL (70-110)
--- NOTE | 2020-08-01 08:20 | DCINST_ITS ---
You will use the following diet at home:: No restrictions Discharge Activity: Return to Normal Activity Call your doctor if your incision/area has: Increased Pain/ Swelling Allergies/Adverse Reactions: Allergies bee venom protein (honey bee) Allergy (Verified 07/26/20 15:04) Rash fluconazole Allergy (Verified 07/26/20 15:04) heart racing Iodine and Iodide Containing Produc Allergy (Verified 07/26/20 15:04) Unknown lisinopril Allergy (Verified 07/26/20 15:04) Rash Penicillins Allergy (Verified 07/26/20 15:04) Unknown shellfish derived Allergy (Verified 07/26/20 15:04) Other ciprofloxacin [From Cipro] Adverse Reaction (Verified 07/26/20 15:04) Diarrhea clindamycin Adverse Reaction (Verified 07/26/20 15:04) Diarrhea glimepiride Adverse Reaction (Verified 07/26/20 15:04) Other MAKES ME DRUNK Sulfa (Sulfonamide Antibiotics) Adverse Reaction (Verified 07/26/20 15:04) Diarrhea Medications to take at Discharge Cholecalciferol (VIT D3) [Vitamin D3] 1,000 unit PO DAILY 06/27/19 Vitamin B Complex 1 ea PO QHS 06/27/19 Vitamin E 400 unit PO DAILY 10/22/19 alprazolam 0.5 mg tablet 0.5 mg PO BID tab 01/21/20 Amlodipine Besylate 2.5 mg PO DAILY 07/26/20 Metoprolol Succinate 150 mg PO DAILY 07/26/20 Rosuvastatin Calcium 20 mg PO QHS 07/26/20 Warfarin Sodium 3 mg PO QHS 07/26/20 Primary Care Physician: Komal Novoa MD [Primary Care Provider] - Test Results: Test results from this visit will be discussed in further detail at your follow- up appointment, if applicable. Please Follow Up With: Aaron De Jesus MD When: 1 month
--- NOTE | 2020-08-01 08:21 | OP.PCM_ITS ---
Problem List (1) Paralyzed vocal cords Status: Chronic Report of Operation Date of Procedure: 08/01/20 Pre-Operative Diagnosis: vocal cord immobility, left Post-Operative Diagnosis: vocal cord immobility, left Surgery/Procedure Performed:: diagnostic laryngoscopy with vocal cord injection, left Type of Anesthesia:: General Description of Procedure: on the day of the procedure, after appropriate informed consent was obtained, the patient was brought to the operating room and placed in supine position on the operating table. she was placed under general endotracheal anesthesia by the anesthesiologist. the endotracheal tube was secured, the eyes were taped. the table was rotated 90 degrees toward the surgeon. the june laryngoscope was inserted into the oral cavity with care not to damage the lips, teeth or gums. the posterior glottis was viewed but a satisfactory view of the mid- glottis was not able to be achieved given the patient's anatomy. the glide scope was inserted and a full glottic view was obtained. 0.8cc of prolaryn plus was injected at the junction of the anterior 2/3 and posterior 1/3 of the left true vocal cord, just lateral to the cord in the paraglottic space. there was no bleeding. the table was rotated 90 degrees toward the anesthesiologist where she was extubated uneventfully. she was transferred to the PACU in stable condition.
[2020-08-01 08:35] VITALS: BP 123/58; BP 138/59; PULSE 65; RESP 18; TEMP 36.1; O2SAT 97
[2020-08-01 08:45] VITALS: BP 123/58; BP 138/61; PULSE 57; RESP 18; O2SAT 99
[2020-08-01 08:46] LABS: Prothrombin Time Fingerstick 25.4 SEC (11.9-14.4)
[2020-08-01 08:55] LABS: Bedside Glucose 95 mg/dL (70-110)
[2020-08-01 09:00] VITALS: BP 123/58; BP 136/87; PULSE 56; RESP 18; TEMP 36.1; O2SAT 100
[2020-08-01 09:30] VITALS: BP 123/58
== END 2020-08-01 09:30 | disposition home or self-care (01) ==
LOC: SDC 06:25 → AC 06:26
PROVIDERS: PCP Internal Medicine; Referring Provider Otolaryngology; Visit Provider Otolaryngology
PROC: (CPT 31570; principal; 2020-08-01 07:45)
DX: J38.01 Paralysis of vocal cords and larynx, unilateral (principal); J44.9 Chronic obstructive pulmonary disease, unspecified; F17.200 Nicotine dependence, unspecified, uncomplicated; D64.9 Anemia, unspecified; E78.00 Pure hypercholesterolemia, unspecified; I12.9 Hypertensive chronic kidney disease with stage 1 through stage 4 chronic kidney disease, or unspecified chronic kidney disease; E11.22 Type 2 diabetes mellitus with diabetic chronic kidney disease; N18.30 Chronic kidney disease, stage 3 unspecified; Z86.718 Personal history of other venous thrombosis and embolism; Z86.73 Personal history of transient ischemic attack (TIA), and cerebral infarction without residual deficits; Z20.828 Contact with and (suspected) exposure to other viral communicable diseases; Z79.899 Other long term (current) drug therapy; Z79.01 Long term (current) use of anticoagulants
CPT/HCPCS: 31570; 36416; 80048; 82962; 85027; 85610; 87426; C9803; J7120; J2405

== ENCOUNTER 2020-08-06 14:00 | Emergency (ER) | payer MEDICARE, OTHER, SELFPAY ==
[2020-08-06 14:01] VITALS: BP 152/69; PULSE 66; RESP 16; TEMP 36.4; O2SAT 99; BMI 22.2
--- NOTE | 2020-08-06 14:20 | CT_ITS ---
STUDY: CT ABDOMEN AND PELVIS WITHOUT CONTRAST REASON FOR EXAM: Female, 74 years old. Abdominal pain RADIATION DOSAGE (If Supplied By Facility): CTDIvol = ( 6.04 ) mGy, DLP = ( 271.80 ) mGycm TECHNIQUE: Transaxial images were obtained from the dome of the diaphragm to the symphysis pubis without oral contrast, and without intravenous contrast. Sagittal and coronal images were reconstructed. Individualized dose optimization techniques were used for this CT. COMPARISON: November 09 2019 FINDINGS: Examination is limited due to lack of IV contrast. There is a new 1 cm solid well-defined nodule in the medial basal segment of the left lower lobe. There is a 5 mm posterior basal segment right lower lobe pleural contacting nodules. There is mild scattered atelectasis. Lung bases are moderately emphysematous. Coronary arteries are severely diseased. Liver is severely cirrhotic without biliary dilation or ascites. Normal gallbladder and extrahepatic biliary system. Spleen is moderately enlarged. Normal pancreas. Normal bilateral adrenal glands. Normal right kidney. Normal left kidney. There is no intestinal obstruction. Small bowel is minimally dilated with fluid contents. The appendix is normal. Normal abdominal aorta. Normal inferior vena cava. Normal retroperitoneum. Normal urinary bladder. Uterus is removed. There is a stable 3.8 cm left adnexal probably cystic lesion, incompletely characterized. Normal abdominal wall. Normal osseous structures. CT/Abdomen/Pelvis without Cont IMPRESSION: 1. No intestinal obstruction. 2. Probably enteritis. 3. Lower lobe pulmonary nodules. Refer to dedicated CT chest for full pulmonary assessment. 4. Severe coronary artery disease. 5. Severe cirrhosis. Electronically Signed: Alia Myers, at 14:59 EST Tel , Service support ,
--- NOTE | 2020-08-06 14:21 | ED.DCSUM_ITS ---
History of Present Illness Chief Complaint: Abd Pain Informant: Patient Onset: Days Timing: Waxes and wanes Current Severity: Mild Maximum Severity: Moderate Narrative: Patient presents secondary to abdominal pain. She had a procedure at the hospital on August 01 for vocal cord dysfunction. She states she did have anesthesia and had her vocal cord injected. Patient states the following day she developed lower abdominal pain and developed diarrhea. She spoke with her doctor who recommended she take Imodium. She took 2 tabs of Imodium on the and has taken 1 tab daily for the next 4 days. Patient states her stools have been soft but discolored, light vincent or kip colored. She states her abdominal pain improved until this afternoon when it recurred about an hour or so ago. She did have some slight chills today but no fever. She states she went for a walk earlier today and felt her normal self. 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 She is an appointment scheduled in 2 days. 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 She has not had any blood in her stool. She does have a small external hemorrhoid that she states will occasionally bleed but has not been noted recently. - Past Medical History (1) History of CVA (cerebrovascular accident) Status: Chronic Comment: Small left lentiform nucleus acute infarct (2) CKD (chronic kidney disease) Status: Chronic (3) Deep vein thrombosis of right lower extremity Status: Chronic (4) Essential (primary) hypertension Status: Chronic (5) Hyperlipidemia Status: Chronic (6) Ovarian cyst Status: Chronic (7) Paralyzed vocal cords Status: Chronic Past Medical History - Allergies and Home Meds Allergies/Adverse Reactions: Allergies bee venom protein (honey bee) Allergy (Verified 08/06/20 14:12) Rash fluconazole Allergy (Verified 08/06/20 14:12) heart racing Iodine and Iodide Containing Produc Allergy (Verified 08/06/20 14:12) Unknown lisinopril Allergy (Verified 08/06/20 14:12) Rash Penicillins Allergy (Verified 08/06/20 14:12) Unknown shellfish derived Allergy (Verified 08/06/20 14:12) Other sodium chloride for inhalation [From Saline] Allergy (Verified 08/06/20 14:37) PT UNSURE OF REACTION ciprofloxacin [From Cipro] Adverse Reaction (Verified 12/13/20 14:12) Diarrhea clindamycin Adverse Reaction (Verified 08/06/20 14:12) Diarrhea glimepiride Adverse Reaction (Verified 08/06/20 14:12) Other MAKES ME DRUNK Sulfa (Sulfonamide Antibiotics) Adverse Reaction (Verified 08/06/20 14:12) Diarrhea Primary Care Physician: Komal Novoa MD [Primary Care Provider] - Prior records reviewed: Yes Surgical History: hysterectomy, tonsillectomy, - Smoking Status: Current every day smoker - Family History Maternal Family History: Family History (Last Updated 06/27/20 @ 10:16 by Jessica Bartlett) Father Hypertension Cancer Heart disease Sister Kidney disease Diabetes Mother Asthma Family History: Reports: No pertinent history Paternal Family History: Family History (Last Updated 06/27/20 @ 10:16 by Jessica Bartlett) Father Hypertension Cancer Heart disease Sister Kidney disease Diabetes Mother Asthma Family History: Reports: No pertinent history Review of Systems General: Reports: Chills. Denies: Fever Eyes: Denies: Visual changes - bilaterally ENT: Denies: Bilateral ear pain Cardiovascular: Denies: Chest pain Respiratory: Denies: Dyspnea, Cough Gastrointestinal: Reports: Abdominal pain, Diarrhea. Denies: Nausea, Vomiting Genitourinary: Denies: Dysuria Musculoskeletal: Denies: Swelling, Extremity Pain Skin: Denies: Rash Neurological: Denies: Headache Hematologic: Denies: Easy bruising, Easy bleeding Allergy: Denies: Uticaria Physical Exam Vital Signs/Narrative: Vital Signs Temp Pulse Resp BP Pulse Ox 08/06/20 14:01 97.5 F L 66 16 152/69 H 99 Inital Vital Signs reviewed: Yes General: Well nourished, Well developed Head: Normocephalic ENT: Moist mucous membranes Neck: Supple Cardiovascular: Regular rate, Regular rhythm Respiratory: No distress, CTA bilaterally Abdomen: Soft, Nontender, Hyperactive bowel sounds Extremities: Nontender Skin: Normal color Neurological: Alert, Oriented x3 Psychological: Normal affect Diagnostic/Tx/Re-eval Impressions Abdomen/Pelvis CT 08/06/20 14:20 IMPRESSION: 1. No intestinal obstruction. 2. Probably enteritis. 3. Lower lobe pulmonary nodules. Refer to dedicated CT chest for full pulmonary assessment. 4. Severe coronary artery disease. 5. Severe cirrhosis. Electronically Signed: Alia Myers, at 14:59 EST Tel , Service support , 08/06/20 14:20 Abdomen/Pelvis without Cont [CT] Stat Laboratory Results 08/06/20 08/06/20 08/06/20 14:20 14:20 14:20 WBC 7.0 RBC 4.63 Hgb 13.2 Hct 41.6 MCV 89.8 MCH 28.5 MCHC 31.7 L RDW Std Deviation 42.0 RDW Coeff of Violet 12.8 Plt Count 163 MPV 11.3 Immature Gran % (Auto) 0.300 Neut % (Auto) 68.2 Lymph % (Auto) 25.1 [place] % (Auto) 5.9 Eos % (Auto) 0.1 Baso % (Auto) 0.4 Absolute Neuts (auto) 4.8 Absolute Lymphs (auto) 1.75 Nucleated RBC % 0 PT 28.6 H INR 2.7 Sodium 141 Potassium 3.8 Chloride 111 H Carbon Dioxide 27.0 Anion Gap 3 L BUN 36 H Creatinine 1.14 H Estim Creat Clear Calc 34.76 Est GFR (MDRD) Af Amer 60 Est GFR (MDRD) Non-Af 50 L BUN/Creatinine Ratio 31.6 H Glucose 118 H Calcium 9.3 Total Bilirubin 0.80 Direct Bilirubin 0.23 AST 18 ALT 37 Alkaline Phosphatase 97 Total Protein 8.0 Albumin 3.7 Globulin 4.3 H Lipase 246 Urine Color Urine Clarity Urine pH Ur Specific [place] Urine Protein Urine Glucose (UA) Urine Ketones Urine Occult Blood Urine Nitrite Urine Bilirubin Urine Urobilinogen Ur Leukocyte Esterase Urine RBC Urine WBC Ur Squamous Epith Cells Urine Bacteria Urine Mucus 08/06/20 15:10 WBC RBC Hgb Hct MCV MCH MCHC RDW Std Deviation RDW Coeff of Violet Plt Count MPV Immature Gran % (Auto) Neut % (Auto) Lymph % (Auto) [place] % (Auto) Eos % (Auto) Baso % (Auto) Absolute Neuts (auto) Absolute Lymphs (auto) Nucleated RBC % PT INR Sodium Potassium Chloride Carbon Dioxide Anion Gap BUN Creatinine Estim Creat Clear Calc Est GFR (MDRD) Af Amer Est GFR (MDRD) Non-Af BUN/Creatinine Ratio Glucose Calcium Total Bilirubin Direct Bilirubin AST ALT Alkaline Phosphatase Total Protein Albumin Globulin Lipase Urine Color Yellow Urine Clarity Sl. Cloudy Urine pH 5.0 Ur Specific [place] 1.020 Urine Protein 100 H Urine Glucose (UA) Normal Urine Ketones Negative Urine Occult Blood 25 H Urine Nitrite Negative Urine Bilirubin Negative Urine Urobilinogen Normal Ur Leukocyte Esterase Negative Urine RBC 0-5 SEEN Urine WBC 0 SEEN Ur Squamous Epith Cells 0-5 SEEN Urine Bacteria 0 SEEN Urine Mucus 0 SEEN - Medical Decision Making Patient declined anything for pain while here. Labs are reviewed and unremarkable. CT scan reveals evidence of enteritis. Patient may have developed a small ileus after her surgery from anesthesia and is now working through that. At this time there is no evidence of acute ileus or obstruction. Patient was advised that she may have diarrhea for the next couple days as this works through. She is given return instructions including increased pain, fever, chills. She voices understanding and agreement. ED Disposition - Plan for ED Patient: Disposition: Home or Assisted Living Diagnosis: Enteritis Instructions: ED Gastroenteritis, Noninfectious Referrals: Komal Novoa MD [Primary Care Provider] - 3-5 Days if not improving
[2020-08-06 14:35] LABS: Absolute Lymphocyte Count 1.75 X10^3/uL (0.83-4.51); Absolute Neutrophil Count 4.8 X10^3/uL (2.0-7.7); Basophil# 0.03 X10^3/uL; Basophil% 0.4 % (0-1); Eosinophil# 0.01 X10^3/uL; Eosinophils% 0.1 % (0-5); Hematocrit 41.6 % (37-47); Hemoglobin 13.2 g/dL (12.0-15.0); Lymphocyte # 1.75 X10^3/ul (4.0); Lymphocyte % 25.1 % (19-41); Mean Corp Hgb Conc 31.7 g/dL (32-36); Mean Corpuscular Hgb 28.5 pg (27.0-32.0); Mean Corpuscular Volume 89.8 fL (81-99); Mean Platelet Vol. 11.3 fl (6.2-12.0); Monocyte# 0.41 X10^3/uL; Monocyte% 5.9 % (0-10); NRBC Flagged by Analyzer 0 % (0-5); Neutrophil # 4.75 X10^3/uL (2.7-7.7); Neutrophil % 68.2 % (47-70); Platelet Count 163 K/mm3 (150-450); RBC Distribution Width CV 12.8 % (11.6-14.6); Red Blood Count 4.63 M/mm3 (4.2-5.4)
[2020-08-06 14:44] LABS: International Normalized Ratio 2.7; Prothrombin Time (Protime)PT. 28.6 SECONDS (11.7-14.9)
[2020-08-06 14:48] LABS: AST(SGOT) 18 U/L (15-37); Alanine Aminotransfer ALT/SGPT 37 U/L (13-56); Albumin, Serum 3.7 g/dL (3.2-5.0); Alkaline Phosphatase 97 U/L (45-117); Anion Gap 3 (5-15); BUN 36 mg/dL (7-18); BUN/Creat Ratio 31.6 RATIO (10-20); Bilirubin, Direct 0.23 mg/dL (0.00-0.30); Calcium,Total 9.3 mg/dL (8.5-10.1); Chloride 111 mmol/L (98-107); Creatinine, Serum 1.14 mg/dL (0.55-1.02); EST Glomerular Filtration Rate 50 mL/min (>60); Est Glom Filt Rate - Afr Amer 60 mL/min (>60); Estimated Creatinine Clearance 34.76 ml/min; Globulin 4.3 g/dL (2.2-4.2); Glucose 118 mg/dL (74-106); Lipase 246 U/L (73-393); Potassium 3.8 mmol/L (3.5-5.1); Sodium Level 141 mmol/L (136-145)
[2020-08-06 15:18] LABS: Bacteria 0 SEEN /hpf (None Seen); Mucous, Urine 0 SEEN /hpf (<or=2+); White Blood Cells 0 SEEN /hpf (0-5)
[2020-08-06 15:19] LABS: Color, Urine Yellow (Yellow); Glucose, Dipstick Normal (Normal); Ketone-Dipstick Negative (Negative); Leukocyte Esterase-Dipstick Negative /ul (Negative); Nitrite-Dipstick Negative (Negative); Occult Blood-Urine 25 /ul (Negative); Protein-Dipstick 100 mg/dl (Negative); Urine Bilirubin Dipstick Negative (Negative); Urine Clarity Sl. Cloudy (Clear); Urine Urobilinogen Normal (Normal)
[2020-08-06 15:24] LABS: Red Blood Cells-Urine 0-5 SEEN /hpf (0-5)
[2020-08-06 15:25] LABS: Squamous Epithelial Cells - UA 0-5 SEEN /hpf (5-10)
== END 2020-08-06 15:52 | disposition home or self-care (01) ==
PROVIDERS: Emergency Provider Emergency Medicine; PCP Internal Medicine
DX: K52.9 Noninfective gastroenteritis and colitis, unspecified (principal); I12.9 Hypertensive chronic kidney disease with stage 1 through stage 4 chronic kidney disease, or unspecified chronic kidney disease; N18.9 Chronic kidney disease, unspecified; E78.5 Hyperlipidemia, unspecified; F17.200 Nicotine dependence, unspecified, uncomplicated; Z86.718 Personal history of other venous thrombosis and embolism; Z86.73 Personal history of transient ischemic attack (TIA), and cerebral infarction without residual deficits
CPT/HCPCS: 74176; 80048; 80076; 81001; 83690; 85025; 85610; 99284; A4216

== ENCOUNTER → 2020-08-08 11:26 | Outpatient (CLI) | payer MEDICARE, OTHER, SELFPAY ==
[2020-08-06 14:01] VITALS: BMI 22.2
== END ==
PROVIDERS: PCP Internal Medicine; Visit Provider Obstetrics & Gynecology
DX: R31.9 Hematuria, unspecified (principal)
CPT/HCPCS: 87086

== ENCOUNTER → 2020-08-10 14:48 | Outpatient (CLI) | payer MEDICARE, OTHER, SELFPAY ==
[2020-08-06 14:01] VITALS: BMI 22.2
--- NOTE | 2020-08-10 14:50 | CT_ITS ---
STUDY: CT CHEST WITHOUT CONTRAST REASON FOR EXAM: Female, 74 years old. NEW LUNG NODULE RADIATION DOSAGE (If Supplied By Facility): CTDIvol = ( 6.87 ) mGy, DLP = ( 257.26 ) mGycm TECHNIQUE: Transaxial imaging was performed without the administration of intravenous contrast material. Multiplanar coronal and sagittal images were reformatted. Individualized dose optimization techniques were used for this CT. COMPARISON: Comparison is made with prior chest radiograph dated 07/14/2020. FINDINGS: Hyperinflation. There is a 1.8 cm x 0.9 cm spiculated irregular nodule in the medial posterior aspect of the left upper lobe. There is a 4.2 mm noncalcified nodule in the anterior medial aspect of the left upper lobe as seen on axial image #132. There is a 6.4 mm noncalcified nodule in the posterior medial aspect of the left lower lobe as seen on axial image #191. There is also evidence of a 4.5 mm noncalcified nodule in the posterior aspect of the right lower lobe as seen on axial image #189. There is evidence of a linear scar at the left lung base. There is no demonstrated pleural abnormality. There are calcifications of the coronary arteries. There is evidence of a soft tissue fullness in the anterior mediastinum at the level of the origin of the great vessels of the neck. A repeat examination following IV contrast is recommended for further evaluation. Normal hilar regions. Normal unenhanced pulmonary arteries. There is atherosclerotic calcification of the aortic arch with tortuosity and elongation of the aortic arch and descending thoracic aorta. There is demineralization of the thoracic spine. There is no demonstrated abnormality of the visualized upper abdomen. CT/Chest without Contrast IMPRESSION: Multiple nodules as described. Correlation with a PET scan is recommended. Questionable soft tissue fullness in the anterior mediastinum superiorly at the level of the origin of the great vessels of the head and neck. A repeat CT scan following IV contrast is recommended for further evaluation. Electronically Signed: Kamlesh Rhodes, at 15:21 EST , Service support ,
== END ==
PROVIDERS: PCP Internal Medicine; Referring Provider Internal Medicine; Visit Provider Internal Medicine
DX: R91.1 Solitary pulmonary nodule (principal); I82.401 Acute embolism and thrombosis of unspecified deep veins of right lower extremity; E11.21 Type 2 diabetes mellitus with diabetic nephropathy; E11.22 Type 2 diabetes mellitus with diabetic chronic kidney disease; N18.31 Chronic kidney disease, stage 3a; D63.1 Anemia in chronic kidney disease; N83.202 Unspecified ovarian cyst, left side
CPT/HCPCS: 36415; 71250; 85610; 86304

== ENCOUNTER 2020-08-24 07:10 | Outpatient (RCR) | payer MEDICARE, OTHER, SELFPAY ==
[2020-07-14 08:38] VITALS: BMI 21.1
[2020-07-28 09:29] LABS: International Normalized Ratio 1.5
[2020-08-03 09:11] LABS: Prothrombin Time (Protime)PT. 21.7 SECONDS (11.7-14.9)
[2020-08-10 09:53] LABS: International Normalized Ratio 2.5; Prothrombin Time (Protime)PT. 26.8 SECONDS (11.7-14.9)
[2020-08-11 10:58] LABS: Cancer Antigen 125 36.2 U/mL (0.0-38.1)
[2020-08-17 07:47] LABS: International Normalized Ratio 2.1; Prothrombin Time (Protime)PT. 23.2 SECONDS (11.7-14.9)
[2020-08-24 08:20] LABS: International Normalized Ratio 1.8; Prothrombin Time (Protime)PT. 20.5 SECONDS (11.7-14.9)
== END 2020-08-24 18:00 | disposition home or self-care (01) ==
LOC: LAB 07:10
PROVIDERS: PCP Internal Medicine; Referring Provider Internal Medicine; Visit Provider Internal Medicine
DX: E11.21 Type 2 diabetes mellitus with diabetic nephropathy (principal); E11.22 Type 2 diabetes mellitus with diabetic chronic kidney disease; N18.31 Chronic kidney disease, stage 3a; I82.401 Acute embolism and thrombosis of unspecified deep veins of right lower extremity
CPT/HCPCS: 36415; 85610; 86304

== ENCOUNTER → 2020-08-30 14:18 | Outpatient (CLI) | payer MEDICARE, OTHER, SELFPAY ==
[2020-09-01 08:38] LABS: Cancer Antigen 125 35.2 U/mL (0.0-38.1)
== END ==
PROVIDERS: PCP Internal Medicine; Visit Provider Obstetrics & Gynecology
DX: N83.202 Unspecified ovarian cyst, left side (principal); R19.09 Other intra-abdominal and pelvic swelling, mass and lump
CPT/HCPCS: 36415; 86304

== ENCOUNTER 2020-09-07 06:51 | Outpatient (RCR) | payer MEDICARE, OTHER, SELFPAY ==
[2020-08-14 11:13] VITALS: BMI 20.2
[2020-09-07 07:44] LABS: Prothrombin Time (Protime)PT. 21.8 SECONDS (11.7-14.9)
== END 2020-09-07 18:00 | disposition home or self-care (01) ==
LOC: LAB 06:51
PROVIDERS: PCP Internal Medicine; Referring Provider Internal Medicine; Visit Provider Internal Medicine
DX: I82.401 Acute embolism and thrombosis of unspecified deep veins of right lower extremity (principal); E11.21 Type 2 diabetes mellitus with diabetic nephropathy; E11.22 Type 2 diabetes mellitus with diabetic chronic kidney disease; N18.31 Chronic kidney disease, stage 3a
CPT/HCPCS: 36415; 85610

== ENCOUNTER → 2020-09-11 10:57 | Outpatient (CLI) | payer MEDICARE, OTHER, SELFPAY ==
[2020-09-07 14:20] VITALS: BMI 20.9
[2020-09-11 12:27] LABS: D-Dimer Quantitative (DVT/PE) 1.88 FEU/ug/m (0.27-0.49)
== END ==
PROVIDERS: PCP Internal Medicine; Referring Provider Internal Medicine; Visit Provider Internal Medicine
DX: R07.9 Chest pain, unspecified (principal)
CPT/HCPCS: 36415; 85379

== ENCOUNTER → 2020-09-18 07:55 | Outpatient (CLI) | payer MEDICARE, OTHER, SELFPAY ==
[2020-09-07 14:20] VITALS: BMI 20.9
[2020-09-13 11:39] LABS: Absolute Lymphocyte Count 1.64 X10^3/uL (0.83-4.51); Absolute Neutrophil Count 5.3 X10^3/uL (2.0-7.7); Basophil# 0.03 X10^3/uL; Basophil% 0.4 % (0-1); Eosinophil# 0.01 X10^3/uL; Eosinophils% 0.1 % (0-5); Hematocrit 38.2 % (37-47); Hemoglobin 12.3 g/dL (12.0-15.0); Lymphocyte # 1.64 X10^3/ul (4.0); Lymphocyte % 21.6 % (19-41); Mean Corp Hgb Conc 32.2 g/dL (32-36); Mean Corpuscular Hgb 28.8 pg (27.0-32.0); Mean Corpuscular Volume 89.5 fL (81-99); Monocyte# 0.58 X10^3/uL; Monocyte% 7.7 % (0-10); NRBC Flagged by Analyzer 0 % (0-5); Neutrophil % 69.9 % (47-70); Platelet Count 184 K/mm3 (150-450); RBC Distribution Width CV 13.2 % (11.6-14.6); Red Blood Count 4.27 M/mm3 (4.2-5.4); White Blood Count 7.6 K/mm3 (4.4-11.0)
[2020-09-13 11:46] LABS: International Normalized Ratio 1.8; Prothrombin Time (Protime)PT. 20.5 SECONDS (11.7-14.9)
[2020-09-13 11:47] LABS: Partial Thromboplast Time 30.8 Seconds (24.1-36.2)
[2020-09-18] VITALS (18 sets, daily range): BP systolic 107–164; BP diastolic 42–102; PULSE 49–71; RESP 16–28; TEMP 36.6; O2SAT 88–100
--- NOTE | 2020-09-18 | IMM_PTH ---
PATIENT: UMBERTO TOMLINSON LOC: CT U#:[id number] AGE/SX: 79/F ROOM: RE09/18/[address]: Dr. Yanick Romero MD : 1945 BED: DIS: SPEC #: [id number] RECD: 09/18/20 10:48 STATUS: HERNANDEZ REQ #: [id number] MICHAEL: 09/18/20 00:[address]: Yanick Romero DEPT: IMMUNOHISTOCHEMISTRY RECD BY: Leticia Whitney ENTERED: 09/18/20 10:50 SP TYPE: IMMUNO OTHR DR: Dr. Komal Novoa MD Tissues: Left lung, NOS Procedures: RCC (add) NAPSIN A (add) CK20 (add) CK5-6 (add) CK7 (add) CK8 (add) HEP PAR (add) KY (add) TTF1 (add) Pankeratin (add) P40 (add) ER (initial) PHYSICIAN & INSTITUTION [place] [id number] SPECIMEN INFORMATION: Tissue Source: CT-guided left lung biopsy Clinical Info: Lung nodules Specimen Number: [id number] CPT code: 98097, 38300 x11 METHODOLOGY: Deparaffinized sections of prefer/formalin-fixed tissue or PAP/DQ stained slides are incubated with monoclonal/polyclonal antibodies/oligonucleotide probes. Localization is made via biotin free immunoperoxidase method. Appropriate controls are performed and reacted as expected. Results on target cell population are indicated in the following table: RESULTS: ANTIBODY / CLONE RESULT ER (6F11) positive, focal & weak KY (1E2) positive, focal & weak AE1-3 (AE1/AE3/PCK26) positive CK7 (OV-TL12/30) positive CK8 (49tnphT26) positive CK20 (KS20.8) negative TTF-1 (8G7G3/1) positive Napsin A (Rabbit Polyclonal) positive HepPar (OCh1E5) negative RCC (PN-15) negative CK5-6 (D5 & 1684) negative P40 (BC28) negative These tests were developed and their performance characteristics determined by [facility]. They may not have been cleared or approved by the U.S. Food and Drug Administration. The FDA has determined that such clearance or approval is not necessary. The above immunohistochemical/dualISH markers are ordered and reviewed by the Pathologist. INTERPRETATION: Left lung nodule, CT-guided core biopsy: Non-small cell carcinoma, favor adenocarcinoma, consistent with lung primary. This case has been reviewed in consultation with Dr. Arguello who concurs with the above diagnosi. SJ:tae 09/19/2020
--- NOTE | 2020-09-18 07:57 | CT_ITS ---
PROCEDURE: CT GUIDED CORE NEEDLE BIOPSY OF A left lower lobe LUNG LESION INDICATION: Female, 74 years old. LUNG NODULES, LUNG BIOPSY PHYSICIAN: CONSENT: Written informed consent was obtained having explained the risks, benefits and alternatives in detail with the patient who accepted the risks and agreed to proceed. Laboratory review and clinical assessment was performed. CONSCIOUS SEDATION PROTOCOL: The Drugs used were: 2 mg Versed, IV., and 50 mcg Fentanyl, IV. The sedation time was: 13 minutes. Conscious sedation was started 9:12 AM and terminated at 925 The conscious sedation protocol was independently monitored. RADIATION DOSAGE (If Supplied By Facility): CTDIvol = ( 16.8 ) mGy, DLP = ( 489.62 ) mGycm Individualized dose optimization techniques were used for this CT. TECHNIQUE: The patient was placed in the bone position. A noncontrast CT was performed to localize the lesion in the posterior medial segment of the left lower lobe . The skin surface was prepped and draped in a sterile fashion. 1% lidocaine was used for local anesthesia. Using CT guidance, a 20 coaxial biopsy device was advanced to the periphery of the lesion. A total of 4 core specimens were obtained. The specimens were placed in a formalin solution. A post procedure CT demonstrated no adverse sequelae or pneumothorax. The patient tolerated the procedure well without adverse event. A negative biopsy does not exclude malignancy. Further imaging or clinical followup based on patient condition and degree of clinical suspicion for malignancy. Suggest rebiopsy, if biopsy results do not match with clinical scenario. CT/Biopsy/Inj or Needle Placement IMPRESSION: 1. CT directed core needle biopsy of the left lower lobe lung nodule using CT image guidance with image documentation as described. Pathology results are pending. 2. Conscious Sedation protocol utilized with independent monitoring. Electronically Signed: Kamlesh Rhodes MD at 10:56 EST , Service support ,
[2020-09-18] MEDS: Midazolam 2 MG/2 ML Syringe IV (09:10)
[2020-09-18] MEDS: Lactated Ringers 1,000 ML 15 ML IV (09:12)
[2020-09-18] MEDS: fentaNYL 100 MCG/2 ML Ampul IV (09:12)
[2020-09-18] MEDS: 0.9% Saline Lock 10 ML Syringe IV (09:13)
--- NOTE | 2020-09-18 09:30 | RAD_ITS ---
STUDY: X-RAY CHEST REASON FOR EXAM: Female, 74 years old. Immediate post left lung bx TECHNIQUE: AP inspiration and expiration views. COMPARISON: Comparison is made with prior study dated 07/14/2020. FINDINGS: EKG electrodes are seen. Immediate post left lung biopsy radiograph. There is no evidence of pneumothorax. RAD/Chest Insp/Exp 2 View IMPRESSION: No evidence of pneumothorax on the immediate post left lung biopsy radiograph. Electronically Signed: Kamlesh Rhodes MD at 10:12 EST , Service support ,
--- NOTE | 2020-09-18 09:30 | ASPIGT_PTH ---
PATIENT: UMBERTO TOMLINSON LOC: CT U#:[id number] AGE/SX: 79/F ROOM: RE09/18/[address]: Dr. Yanick Romero MD : 1945 BED: DIS: SPEC #: [id number] RECD: 09/18/20 10:01 STATUS: HERNANDEZ [place]AN[place] #: [id number] MICHAEL: 09/18/20 09:[address]: Yanick Romero DEPT: SURGICAL PATHOLOGY RECD BY: Lisa Kendrick ENTERED: 09/18/20 10:02 SP TYPE: ASP RAD OTHR DR: Dr. Komal Novoa MD Tissues: Lung, NOS Procedures: FNA Specimen Adequacy Special Stain Group II Surgery Specimen Level IV Imprint (control) HEADER OPERATION: Left lung biopsy PRE-OP DIAGNOSIS: Lung nodules TISSUE SUBMITTED: Left lung nodules 20-gauge cores x4 MICROSCOPIC DIAGNOSIS Left lung nodule, CT-guided core biopsy: Non-small cell carcinoma, favor adenocarcinoma, consistent with lung primary. See comment. SJ:tae 09/19/2020 COMMENT The specimen is evaluated at the time of biopsy by Dr. Henry. Immediate Evaluation = Malignant cells present derived from non-small cell carcinoma. Immunohistochemistry ([id number]) supports the above diagnosis. Molecular studies on the tumor can be performed if clinically indicated. Please notify the laboratory if they are needed. Case has been reviewed in consultation with Dr. Arguello who concurs with the above diagnosis. IDC:AM MICROSCOPIC DESCRIPTION Slides are reviewed. GROSS DESCRIPTION Received in fixative is one container labeled with the patient's name and designated left lung biopsy, CT-guided. The specimen consists of multiple irregular fragments of light singletary soft tissue that in aggregate measure 0.5 x 0.1 x <0.1 cm. The specimen is totally submitted in one cassette. Three touch imprints are prepared at the time of core biopsy. / KENNEY:tae 09/18/20 TC:0 CPT: 57887, 40136
--- NOTE | 2020-09-18 11:30 | RAD_ITS ---
STUDY: X-RAY CHEST REASON FOR EXAM: Female, 74 years old. 2 hours post left lung biopsy TECHNIQUE: AP inspiration and patient use. COMPARISON: Comparison is made with prior study done earlier in the day. FINDINGS: No evidence of pneumothorax on the 2 hour post left lung biopsy radiograph. RAD/Chest Insp/Exp 2 View IMPRESSION: No evidence of pneumothorax on the 2 hour post left lung biopsy radiograph. Electronically Signed: Kamlesh Rhodes MD at 12:18 EST , Service support ,
--- NOTE | 2020-09-18 12:48 | NURSING ---
transferred patient to ER, pt did agreed to this treatment action, report given to Liliana Caldera at beside [id number]
[2020-09-19 07:30] LABS: Bedside Glucose 198 mg/dL (70-110)
[2020-09-19 07:30] LABS: Bedside Glucose 188 mg/dL (70-110)
== END ==
PROVIDERS: PCP Internal Medicine; Referring Provider Internal Medicine Critical Care Medicine; Visit Provider Internal Medicine Critical Care Medicine
DX: C34.32 Malignant neoplasm of lower lobe, left bronchus or lung (principal); Z79.01 Long term (current) use of anticoagulants
CPT/HCPCS: 32408; 36415; 71046; 77012; 85025; 85610; 85730; 88172; 88305; 88313; 88341; 88342; J7120; A4216

== ENCOUNTER 2020-09-18 13:05 | Inpatient (IN) | payer MEDICARE, OTHER, SELFPAY ==
[2020-09-18] VITALS (9 sets, daily range): BP systolic 116–150; BP diastolic 56–83; PULSE 60–65; RESP 16–24; TEMP 36.5–37.1; O2SAT 94–98; BMI 21.1; BMI 20.2
--- NOTE | 2020-09-18 14:11 | CT_ITS ---
STUDY: CTA CHEST REASON FOR EXAM: Female, 74 years old. SOB FOLLOWING LUNG BX, LUNG CA, HYPOXIA RADIATION DOSAGE (If Supplied By Facility): CTDIvol = ( 11.27 ) mGy, DLP = ( 275.77 ) mGycm TECHNIQUE: The examination was performed with the intravenous administration of IV 100ML ISOVUE 370. Post-processing of the angiographic images was performed, with multiplanar reformation and 3D reconstruction. Individualized dose optimization techniques were used for this CT. COMPARISON: Comparison is made with prior study dated 08/10/2020. FINDINGS: Normal enhancement of the main pulmonary artery and right and left pulmonary arteries. Normal enhancement of the bilateral peripheral pulmonary arteries. There is no demonstrated pulmonary embolism. There is atherosclerotic calcification of the aortic arch with tortuosity. There is no demonstrated aortic dissection. Normal heart and pericardium. Soft tissue mass seen in the superior mediastinum at the level of the origin of the great vessels of the neck. This is unchanged. Normal hilar regions. Normal visualized trachea and bronchi. Hyperinflation. The previously seen nodular density in the medial aspect of the right upper lobe posteriorly has increased in size. It presently measures 1.7 cm. Since prior study, there has been progressive scarring in the left upper lobe more prominent along the medial aspect. There is evidence of a small left pleural effusion. The previously seen nodular density at the left lung base has increased in size and this most likely secondary to the recent lung biopsy with the hemorrhage. The patient had hemoptysis following the biopsy. The previously seen nodular density at the right lung base is not seen at this time. Normal chest wall structures. Normal osseous structures. Normal visualized upper abdomen. CT/CTA Chest W/WO Contrast IMPRESSION: Status post biopsy of a nodule in the left lower lobe with resultant hemorrhage surrounding the nodular density with a small left pleural effusion. The previously seen nodule in the posterior medial segment of the right lower lobe is not seen at this time. Increased size of the nodule seen in the posterior aspect of the left upper lobe. Electronically Signed: Kamlesh Rhodes MD at 15:36 EST , Service support ,
--- NOTE | 2020-09-18 14:11 | EKG12_ITS ---
Test Reason : SOB Blood Pressure : / mmHG Vent. Rate : 060 BPM Atrial Rate : 060 BPM P-R Int : 124 ms QRS Dur : 088 ms QT Int : 434 ms P-R-T Axes : 000 -20 046 degrees QTc Int : 434 ms Normal sinus rhythm vs ectopic atrial rhythm Low Voltage QRS (Limb Leads) Confirmed by WILBERTO CELIS, MICHEAL ([id number]), video news editor HARESH ORO ([id number]) on 09/20/2020 11:12:12 AM Referred By: ROBERTO Confirmed By:MICHEAL LADD MD
--- NOTE | 2020-09-18 14:13 | ED.VIS.GEN ---
History of Present Illness Chief Complaint: Shortness of Breath Narrative: Patient is a 74-year-old female who presents with hypoxia. She has probable lung cancer. She had a CT-guided biopsy this morning. She was previously on warfarin due to history of DVT. This has been held since last week. She began to develop some immediate left-sided chest pain after the biopsy. She developed hemoptysis. She then developed hypoxia requiring oxygen by nasal cannula. X-ray obtained 2 hours after biopsy showed no evidence of pneumothorax. She was sent here for further evaluation. She does note that about 1 week ago she had pleuritic left-sided chest and shoulder pain. She was worried for possible PE. She did talk to her physician who felt this was unlikely. Her pain did not return until about 1 hour ago and she has a similar left-sided chest and shoulder pain. No fevers vomiting diarrhea. Past Medical History - Allergies and Home Meds Allergies/Adverse Reactions: Allergies bee venom protein (honey bee) Allergy (Verified 09/18/20 13:10) Rash fluconazole Allergy (Verified 09/18/20 13:10) heart racing Iodine and Iodide Containing Produc Allergy (Verified 09/18/20 13:10) Unknown lisinopril Allergy (Verified 09/18/20 13:10) Rash Penicillins Allergy (Verified 09/18/20 13:10) Unknown shellfish derived Allergy (Verified 09/18/20 13:10) Other sodium chloride for inhalation [From Saline] Allergy (Verified 09/18/20 13:10) PT UNSURE OF REACTION ciprofloxacin [From Cipro] Adverse Reaction (Verified 09/18/20 13:10) Diarrhea clindamycin Adverse Reaction (Verified 09/18/20 13:10) Diarrhea glimepiride Adverse Reaction (Verified 09/18/20 13:10) Other MAKES ME DRUNK Sulfa (Sulfonamide Antibiotics) Adverse Reaction (Verified 09/18/20 13:10) Diarrhea Primary Care Physician: Komal Novoa MD [Primary Care Provider] - Past Medical History: - - Hypertension, hyperlipidemia, history of DVT Surgical History: hysterectomy, tonsillectomy, - Smoking Status: Current every day smoker - Family History Maternal Family History: Family History (Last Reviewed 09/07/20 @ 14:26 by Jessica Bartlett) Father Hypertension Cancer Heart disease Sister Kidney disease Diabetes Mother Asthma Family History: Reports: No pertinent history Paternal Family History: Family History (Last Reviewed 09/07/20 @ 14:26 by Jessica Bartlett) Father Hypertension Cancer Heart disease Sister Kidney disease Diabetes Mother Asthma Family History: Reports: No pertinent history Review of Systems All systems negative except as indicated General: Denies: Fever Eyes: Denies: Visual changes - bilaterally ENT: Denies: Bilateral ear pain Cardiovascular: Reports: Chest pain Respiratory: Reports: Dyspnea, Cough - Hemoptysis Gastrointestinal: Denies: Abdominal pain, Nausea, Vomiting, Diarrhea Musculoskeletal: Denies: Myalgias, Arthralgias Skin: Denies: Rash Neurological: Denies: Headache Psych: Reports: Anxiety Hematologic: Reports: Easy bleeding Allergy: Denies: Uticaria Physical Exam Vital Signs/Narrative: Vital Signs Temp Pulse Resp BP Pulse Ox 09/18/20 13:06 97.9 F 65 24 H 137/83 H 95 Inital Vital Signs reviewed: Yes General: Well nourished Head: Normocephalic Eyes: EOMI ENT: Moist mucous membranes Neck: Supple Cardiovascular: Regular rate, Regular rhythm Respiratory: No distress, CTA bilaterally Abdomen: Soft, Nontender, Nondistended Extremities: Nontender, No edema Skin: Normal color Neurological: Alert Psychological: - - Patient is anxious Diagnostic/Tx/Re-eval Impressions Chest CTA 09/18/20 14:11 IMPRESSION: Status post biopsy of a nodule in the left lower lobe with resultant hemorrhage surrounding the nodular density with a small left pleural effusion. The previously seen nodule in the posterior medial segment of the right lower lobe is not seen at this time. Increased size of the nodule seen in the posterior aspect of the left upper lobe. Electronically Signed: Kamlesh Rhodes MD at 15:36 EST , Service support , 09/18/20 14:11 CTA Chest W/WO Contrast [CT] Stat Laboratory Results 09/18/20 09/18/20 09/18/20 14:25 14:25 14:25 WBC 7.0 RBC 3.90 L Hgb 11.1 L Hct 35.2 L MCV 90.3 MCH 28.5 MCHC 31.5 L RDW Std Deviation 42.8 RDW Coeff of Violet 13.1 Plt Count 140 L MPV 11.0 Immature Gran % (Auto) 0.300 Neut % (Auto) 74.9 H Lymph % (Auto) 18.6 L [place] % (Auto) 5.8 Eos % (Auto) 0.1 Baso % (Auto) 0.3 Absolute Neuts (auto) 5.3 Absolute Lymphs (auto) 1.31 Nucleated RBC % 0 PT 14.9 INR 1.2 Sodium 141 Potassium 4.4 Chloride 107 Carbon Dioxide 28.0 Anion Gap 6 BUN 34 H Creatinine 0.88 Estim Creat Clear Calc 49.17 Est GFR (MDRD) Af Amer 81 Est GFR (MDRD) Non-Af 67 BUN/Creatinine Ratio 38.9 H Glucose 91 Calcium 8.8 Troponin I < 0.015 - Medical Decision Making KG shows normal sinus rhythm at a rate of 60. Serum laboratory studies are unremarkable. CTA of the chest shows no evidence of pulmonary embolism. It does show the most likely some hemorrhage around the biopsied nodule. Patient was discussed with hospitalist service and admitted. ED Disposition - Plan for ED Patient: Disposition: Home or Assisted Living Diagnosis: Hypoxia Referrals: Komal Novoa MD [Primary Care Provider] -
[2020-09-18 14:29] LABS: Absolute Lymphocyte Count 1.31 X10^3/uL (0.83-4.51); Absolute Neutrophil Count 5.3 X10^3/uL (2.0-7.7); Basophil# 0.02 X10^3/uL; Basophil% 0.3 % (0-1); Eosinophil# 0.01 X10^3/uL; Eosinophils% 0.1 % (0-5); Hematocrit 35.2 % (37-47); Hemoglobin 11.1 g/dL (12.0-15.0); Lymphocyte # 1.31 X10^3/ul (4.0); Lymphocyte % 18.6 % (19-41); Mean Corp Hgb Conc 31.5 g/dL (32-36); Mean Corpuscular Hgb 28.5 pg (27.0-32.0); Mean Corpuscular Volume 90.3 fL (81-99); Monocyte# 0.41 X10^3/uL; Monocyte% 5.8 % (0-10); NRBC Flagged by Analyzer 0 % (0-5); Neutrophil # 5.27 X10^3/uL (2.7-7.7); Neutrophil % 74.9 % (47-70); Platelet Count 140 K/mm3 (150-450); RBC Distribution Width CV 13.1 % (11.6-14.6); RBC Distribution Width SD 42.8 fl (35.1-43.9)
[2020-09-18 14:38] LABS: International Normalized Ratio 1.2; Prothrombin Time (Protime)PT. 14.9 SECONDS (11.7-14.9)
[2020-09-18] MEDS: MethylPREDNISolone 125 MG/2 ML Vial IV (14:46)
[2020-09-18] MEDS: DiphenhydrAMINE 50 MG/ML Syringe 25 MG IV (14:46)
[2020-09-18 14:47] LABS: Anion Gap 6 (5-15); BUN 34 mg/dL (7-18); BUN/Creat Ratio 38.9 RATIO (10-20); Calcium,Total 8.8 mg/dL (8.5-10.1); Chloride 107 mmol/L (98-107); Creatinine, Serum 0.88 mg/dL (0.55-1.02); EST Glomerular Filtration Rate 67 mL/min (>60); Est Glom Filt Rate - Afr Amer 81 mL/min (>60); Estimated Creatinine Clearance 49.17 ml/min; Glucose 91 mg/dL (74-106); Potassium 4.4 mmol/L (3.5-5.1); Sodium Level 141 mmol/L (136-145)
--- NOTE | 2020-09-18 16:34 | HP.PCM_ITS ---
Problem List (1) Acute respiratory insufficiency Status: Acute (2) Pulmonary hemorrhage Status: Acute (3) Multiple lung nodules on CT Status: Chronic (4) Paralyzed vocal cords Status: Chronic (5) Type 2 diabetes mellitus Status: Chronic (6) History of CVA (cerebrovascular accident) Status: Chronic Comment: Small left lentiform nucleus acute infarct (7) Left carotid artery stenosis Status: Chronic (8) Deep vein thrombosis of right lower extremity Status: Chronic (9) Essential (primary) hypertension Status: Chronic (10) Hyperlipidemia Status: Chronic Qualifiers: Hyperlipidemia type: mixed hyperlipidemia Qualified Code(s): E78.2 - Mixed hyperlipidemia (11) Nicotine dependence Status: Chronic (12) Type 2 diabetes mellitus Status: Chronic Qualifiers: 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 use: without termite control technician use Diabetes mellitus complication status: with kidney complications Diabetes mellitus complication detail: with chronic kidney disease Chronic kidney disease stage: stage 3 (moderate) Chronic kidney disease stage 3 subtype: stage 3a (GFR 45- 59) Qualified Code(s): E11.21 - Type 2 diabetes mellitus with diabetic nephropathy; N18.31 - Chronic kidney disease, stage 3a (13) Stage III chronic kidney disease Status: Chronic History of Present Illness Date of Admission: 09/18/20 Chief Complaint: hypoxia The patient is a 74 year old F with pmhx of heavy nicotine abuse, spiculated lung nodule, DMt2 diet controlled, CKDIII, hx DVT. HTN, HLD, who presented to the ER after lung nodule biopsy with hypoxia. The patient does not normally require O2. She is followed by Dr. Romero for lung nodules and states she believes she has cancer even though its not confirmed yet. She thinks she may have COPD but has not been formally diagnosed and does not use inhalers. She states she had no breathing issues prior to the biopsy. During the biopsy she states she developed pain where the needle was going in, then she coughed up blood. Since the procedure she has been unable to be weaned off O2. She states she is SOB particularly with exertion. She denies a hx of cancer. 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) Brain lesion (Chronic) Glaucoma (Chronic) Bilateral carotid artery stenosis (Chronic) Ectopic atrial rhythm (Chronic) History of CVA (cerebrovascular accident) (Chronic 06/02/20) Small left lentiform nucleus acute infarct Left carotid artery stenosis (Chronic) Deep vein thrombosis of right lower extremity (Chronic 05/19/20) Essential (primary) hypertension (Chronic) Hyperlipidemia (Chronic) Nicotine dependence (Chronic) Type 2 diabetes mellitus (Chronic) Stage III chronic kidney disease (Chronic) Medical History: Medical History (Last Reviewed 09/07/20 @ 14:26 by Jessica Bartlett) half-way current use of anticoagulant therapy (Chronic) Z79.01 Ovarian cyst (Chronic) N83.209 Paralyzed vocal cords (Chronic) J38.00 MGUS (monoclonal gammopathy of unknown significance) (Resolved) D47.2 Anemia (Chronic) D64.9 CKD (chronic kidney disease) (Chronic) N18.9 Tremor (Chronic) R25.1 Type 2 diabetes mellitus (Chronic) E11.9 Cataract (Chronic) H26.9 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) K55.21 Brain lesion (Chronic) G93.9 Glaucoma (Chronic) H40.9 Bilateral carotid artery stenosis (Chronic) I65.23 Traumatic hematoma of right foot (Resolved) S90.31XA Cellulitis of right foot (Resolved) L03.115 Retinal hemorrhage (Resolved) H35.60 Ectopic atrial rhythm (Chronic) I49.1 History of CVA (cerebrovascular accident) (Chronic) Onset Date: 06/02/20 Z86.73 Small left lentiform nucleus acute infarct Left carotid artery stenosis (Chronic) I65.22 Deep vein thrombosis of right lower extremity (Chronic) Onset Date: 05/19/20 I82.401 Essential (primary) hypertension (Chronic) I10 Hyperlipidemia (Chronic) E78.5 Nicotine dependence (Chronic) F17.200 Type 2 diabetes mellitus (Chronic) E11.9 Stage III chronic kidney disease (Chronic) N18.3 Peptic ulcer K27.9 Allergies bee venom protein (honey bee) Allergy (Verified 09/18/20 13:10) Rash fluconazole Allergy (Verified 09/18/20 13:10) heart racing Iodine and Iodide Containing Produc Allergy (Verified 09/18/20 13:10) Unknown lisinopril Allergy (Verified 09/18/20 13:10) Rash Penicillins Allergy (Verified 09/18/20 13:10) Unknown shellfish derived Allergy (Verified 09/18/20 13:10) Other sodium chloride for inhalation [From Saline] Allergy (Verified 09/18/20 13:10) PT UNSURE OF REACTION ciprofloxacin [From Cipro] Adverse Reaction (Verified 09/18/20 13:10) Diarrhea clindamycin Adverse Reaction (Verified 09/18/20 13:10) Diarrhea glimepiride Adverse Reaction (Verified 09/18/20 13:10) Other MAKES ME DRUNK Sulfa (Sulfonamide Antibiotics) Adverse Reaction (Verified 09/18/20 13:10) Diarrhea Home Medications: Ambulatory Orders Medication Instructions Recorded Cholecalciferol (VIT D3) [Vitamin 1,000 unit PO DAILY 06/27/19 D3] Vitamin B Complex 1 ea PO QHS 06/27/19 Vitamin E 400 unit PO DAILY 10/22/19 alprazolam 0.5 mg tablet 0.5 mg PO BID tab 01/21/20 Amlodipine Besylate 2.5 mg PO DAILY 07/26/20 Metoprolol Succinate 150 mg PO DAILY 07/26/20 Rosuvastatin Calcium 20 mg PO QHS 07/26/20 warfarin 3 mg tablet 3 mg PO QHS #30 tab 09/13/20 Surgical History: Surgical History (Last Reviewed 09/07/20 @ 14:26 by Jessica Bartlett) History of incision and drainage (Resolved) Onset Date: 03/2020 Z98 Incision and drainage right foot with evacuation of hematoma History of bilateral cataract extraction Z98.41, Z98.42 History of bone marrow biopsy Z98.2017 History of colonoscopy Z98.892017 History of endoscopy Z.2017 H/O total hysterectomy Z90.710 History of laminectomy Z98. History of tonsillectomy Z90.89 Surgical History: hysterectomy, tonsillectomy, - Psychiatric History: No pertinent psych hx DENTAL INTERNSHIP History: No pertinent DENTAL INTERNSHIP history Smoking Status: Current every day smoker - *Family History Maternal Family History: Family History (Last Reviewed 09/18/20 @ 16:41 by Luis A GUZMAN, PA) Father Hypertension Cancer Heart disease Sister Kidney disease Diabetes Mother Asthma History Items: No pertinent history Paternal Family History: Family History (Last Reviewed 09/18/20 @ 16:41 by Luis A GUZMAN PA) Father Hypertension Cancer Heart disease Sister Kidney disease Diabetes Mother Asthma History Items: No pertinent history Review of Systems Constitutional: Denies: Chills, Fever, Weight Change HEENT: Denies: Head Aches, Sinus Congestion, Sinus Drainage Cardiovascular: Reports: Chest Pain. Denies: Edema, Light Headedness, Palpitations Respiratory: Reports: Cough, Hemoptysis, Pleuritic Pain, Shortness of Breath, Shortness of breath at rest, Shortness of breath upon exertion, Wheezing. Denies: Sputum production Gastrointestinal: Denies: Abdominal Pain, Dyspepsia, Nausea, Vomiting Genitourinary: Denies: Dysuria, Hesitancy, Urgency Musculoskeletal: Denies: Joint Pain, Joint Tenderness, Muscle pain Skin: Denies: Lesions, Rash, Wounds Neurological: Denies: Numbness, Tingling, Focal weakness Psychiatric: Denies: Anxiety, Depression, Homicidal Ideations, Suicidal Ideations Hematologic/ Lymphatic: Denies: Easy Bruising, Easy Bleeding VTE Information - Inpt Only VTE Present on Admission: No VTE Mechan Device Prophylaxis: SCD's VTE Pharm Prophylaxis ordered?: No Patient Problems: Active and Suspected Problems (Last Reviewed 09/07/20 @ 14:26 by Jessica Bartlett) Hypoxia (Acute) - Physical Exam Vitals/I&O's: Vital Signs Temp Pulse Resp BP Pulse Ox 97.8 F 63 19 H 121/74 H 95 09/18/20 16:21 09/18/20 16:21 09/18/20 16:21 09/18/20 16:21 09/18/20 16:21 Oxygen Flow Rate (L/min) 2 Oxygen Delivery Method Nasal Cannula Weight: 123 lb 0.287 oz Body Mass Index (BMI) 21.1 Intake and Output for Last 24 Hours 09/16/20 09/17/20 09/18/20 23:59 23:59 23:59 Intake Total 500 / 500 Balance 500 / 500 General: Alert, Oriented x3, Cooperative HEENT: Atraumatic, PERRLA, EOMI, Normocephalic Neck: Supple, No JVD, Negative Carotid Bruits Lungs: Diminished, Wheezes - faint left sided wheeze Cardiovascular: Regular rate, No murmurs Abdomen: Bowel Sounds Present, Soft, Non Tender Extremities: No edema, Capillary Refill Less than 3 Seconds Skin: No rashes, No breakdown Musculoskeletal: No Tenderness to Palpation of Joints or Extremities Neurological: Cranial nerves II-XII grossly intact Psych/Mental Status: Normal Affect, Appropriate, Alert and oriented to time, place, person, mood and affect Laboratory Results 09/18/20 14:25: WBC 7.0, RBC 3.90 L, Hgb 11.1 L, Hct 35.2 L, MCV 90.3, MCH 28.5, MCHC 31.5 L, RDW Std Deviation 42.8, RDW Coeff of Violet 13.1, Plt Count 140 L, MPV 11.0, Immature Gran % (Auto) 0.300, Neut % (Auto) 74.9 H, Lymph % (Auto) 18.6 L, Clarke % (Auto) 5.8, Eos % (Auto) 0.1, Baso % (Auto) 0.3, Absolute Neuts (auto) 5.3, Absolute Lymphs (auto) 1.31, Nucleated RBC % 0 09/18/20 14:25: PT 14.9, INR 1.2 09/18/20 14:25: Sodium 141, Potassium 4.4, Chloride 107, Carbon Dioxide 28.0, Anion Gap 6, BUN 34 H, Creatinine 0.88, Estim Creat Clear Calc 49.17, Est GFR (M DRD) Af Amer 81, Est GFR (MDRD) Non-Af 67, BUN/Creatinine Ratio 38.9 H, Glucose 91, Calcium 8.8, Troponin I < 0.015 Assessment/Plan All Active Problems (Last Reviewed 09/07/20 @ 14:26 by Jessica Bartlett) Hypoxia (Acute) Acute respiratory insufficiency (Acute) Pulmonary hemorrhage (Acute) MGUS (monoclonal gammopathy of unknown significance) (Resolved) Traumatic hematoma of right foot (Resolved) Cellulitis of right foot (Resolved) Retinal hemorrhage (Resolved) History of incision and drainage (Resolved 03/2020) 1. Acute respiratory insufficiency post lung nodule biopsy - hx spiculated lung bx sent by Dr. Romero. Some hemoptysis as well. Some wheezing on exam. Probably underlying COPD. Pt needs monitored for further hemoptysis. Will push incentive spirometer to assist in recovery of lung function. Avoid blood thinners. Provide aerosol therapy. 2. Probably COPD - as above. 3. Spiculated lung nodule - as above, highly suspicious for cancer given her smoking hx. Follow up with Dr. Romero. 4. DMt2 - diet controlled. SSI while here. 5. Hx DVT - hold warfarin 6. Anxiety - xanax 7. HTN - norvasc DVT ppx: SCDs DC planning: attempt to wean off o2 prior to dc. plan walking pulse ox tomorrow AM. This patient was seen by Luis A Donis PA-C under the supervision of Dr. Berger.
--- NOTE | 2020-09-18 16:52 | ED.RN ---
PT ADAMANTLY INSISTS SHE IS ALLERGIC' TO NORMAL SALINE, STATES IT CAUSES NEUROPATHY IN MY FEET. ATTEMPTED TO EDUCATE PT ON CONTENTS OF NORMAL SALINE. PT STATES SHE CAN TOLERATE SALINE FLUSHES BECAUSE IT JUST STAYS RIGHT HERE IN MY ARM, DOESN'T TRAVEL DOWN TO MY FEET. PT BECAME VERY AGITATED DURING CONVERSATION, STATES NOBODY BELIEVES HER. LACTATED RINGERS GIVEN INSTEAD OF NORMAL SALINE.
[2020-09-18 17:55] LABS: Bedside Glucose 109 mg/dL (70-110)
[2020-09-18] MEDS: Ipratropium/Albuterol Sulfate 3 ML AMPUL.NEB INHALATION (20:20)
[2020-09-18] MEDS: ALPRAZolam 0.5 MG Tablet PO (21:30)
[2020-09-18] MEDS: Heparin Injection (Vial) 5,000 UNIT/ML VIAL 5000 UNIT SC (21:30)
[2020-09-19] VITALS (11 sets, daily range): BP systolic 112–140; BP diastolic 42–58; PULSE 60–70; RESP 18–23; TEMP 36.6–37.1; O2SAT 91–96; BMI 20.2
[2020-09-19 05:51] LABS: Absolute Lymphocyte Count 0.65 X10^3/uL (0.83-4.51); Absolute Neutrophil Count 4.4 X10^3/uL (2.0-7.7); Hematocrit 31.9 % (37-47); Hemoglobin 10.2 g/dL (12.0-15.0); Lymphocyte # 0.65 X10^3/ul (4.0); Lymphocyte % 12.7 % (19-41); Mean Corpuscular Hgb 28.3 pg (27.0-32.0); Mean Corpuscular Volume 88.6 fL (81-99); Mean Platelet Vol. 11.4 fl (6.2-12.0); Monocyte# 0.07 X10^3/uL; Monocyte% 1.4 % (0-10); NRBC Flagged by Analyzer 0 % (0-5); Neutrophil # 4.37 X10^3/uL (2.7-7.7); Neutrophil % 85.5 % (47-70); Platelet Count 122 K/mm3 (150-450); RBC Distribution Width CV 12.9 % (11.6-14.6); RBC Distribution Width SD 42.1 fl (35.1-43.9); White Blood Count 5.1 K/mm3 (4.4-11.0)
[2020-09-19] MEDS: Ipratropium/Albuterol Sulfate 3 ML AMPUL.NEB INHALATION ×3 (07:30→18:50)
[2020-09-19] MEDS: Metoprolol(XL)Succ 50 MG Tablet 150 MG PO (07:55)
[2020-09-19] MEDS: amLODIPine 2.5 MG Tablet PO (07:55)
[2020-09-19] MEDS: ALPRAZolam 0.5 MG Tablet PO ×2 (07:56→22:14)
[2020-09-19] MEDS: Heparin Injection (Vial) 5,000 UNIT/ML VIAL 5000 UNIT SC ×2 (07:56→21:28)
--- NOTE | 2020-09-19 08:00 | RAD_ITS ---
STUDY: X-RAY CHEST REASON FOR EXAM: Female, 74 years old. SOB following lung biopsy yesterday TECHNIQUE: Single AP portable view of the chest. COMPARISON: Comparison is made with prior examination dated 09/18/2020 at 11:34 AM. FINDINGS: There is evidence of increased markings at the left lung base suggestive of left basilar atelectasis with blunting of left costophrenic angle. There is no evidence of pneumothorax. Normal size heart. Normal mediastinum and cordell. Normal visualized pulmonary arteries. There is atherosclerotic calcification of the aortic arch with tortuosity. Normal visualized thoracic spine. Normal visualized ribs, clavicles, and shoulders. There is no demonstrated abnormality of the visualized soft tissue structures of the upper abdomen. RAD/Chest 1 View (Portable) IMPRESSION: Increased markings at the left lung base suggestive of left basilar atelectasis. There is blunting of the left costophrenic angle. Electronically Signed: Kamlesh Rhodes MD at 8:46 EST , Service support ,
--- NOTE | 2020-09-19 12:10 | CASEMGMT ---
Social Work Note SW reviewed chart. Pt with recent biopsy, cancer has not been confirmed. SW in to speak with pt and provide support. SW introduced self and role at [facility]. Pt is alert and orientated. Pt states she moved here about a year ago and she is living with her sister. Pt confirms that she had a biopsy done yesterday to confirm lung cancer. Pt states it hasn't been confirmed yet but her keg washer stated it is likely lung cancer. Pt states she is just waiting for the results and then to discuss the next options. Pt states she is not able to do chemo as she doesn't have kidneys or liver. SW spoke with pt about possible Palliative Care. Pt states she knows she will eventually do [facility], doesn't need it right now. Pt states that she feels well supported. Pt states that her sister is good support for her and her sister's neighbors and friends. Pt denied needing additional support resources at this time. SW offered support to pt throughout conversation. Pt thanked this worker, denied additional needs or concerns at this time. Solange Mayes INSURANCE AGENT, STATISTICAL REPORTING ANALYST
--- NOTE | 2020-09-19 12:14 | CASEMGMT ---
Social Work Note Per register of wills questions, pt has completed HCPOA and LW and provided documents to [facility]. SW reviewed chart, only HCPOA on chart. SW printed HCPOA and placed on pt's chart. SW in to speak with pt. SW updated pt that HCPOA is on chart but LW is not. Pt states she will have her sister bring in LW. Solange Mayes BISCUITWARE BRUSHER, RESOURCE COORDINATOR
--- NOTE | 2020-09-19 13:33 | PN_ITS ---
<Luis A Donis - Last Filed: 09/19/20 13:37> Patient Problems: Active and Suspected Problems (Last Reviewed 09/07/20 @ 14:26 by Jessica Bartlett) Hypoxia (Acute) Acute respiratory insufficiency (Acute) Pulmonary hemorrhage (Acute) Reason for Visit: Hypoxia Subjective: pt coughing up dark red blood today. She still has some conversational dyspnea. Wheezing resolved. pt was successfully weaned off o2 at rest and with exertion. Vitals/I&O's: Vital Signs Temp Pulse Resp BP Pulse Ox 98.1 F 68 22 H 140/52 H 92 09/19/20 07:48 09/19/20 12:57 09/19/20 12:57 09/19/20 07:48 09/19/20 12:57 Oxygen Flow Rate (L/min) 2 Oxygen Delivery Method Room Air Weight: 117 lb 11.2 oz Body Mass Index (BMI) 20.2 Intake and Output for Last 24 Hours 09/17/20 09/18/20 09/19/20 23:59 23:59 23:59 Intake Total 750 / 750 Balance 750 / 750 General: Alert, Oriented x3, Cooperative HEENT: Atraumatic, PERRLA, EOMI, Normocephalic Neck: Supple, No JVD, Negative Carotid Bruits Lungs: Clear to auscultation, Normal air movement, Rales - BL lower field faint rales hear posteriorly Cardiovascular: Regular rate, No murmurs Abdomen: Bowel Sounds Present, Soft, Non Tender Extremities: No edema, Capillary Refill Less than 3 Seconds Skin: No rashes, No breakdown Musculoskeletal: No Tenderness to Palpation of Joints or Extremities Neurological: Cranial nerves II-XII grossly intact Psych/Mental Status: Normal Affect, Appropriate, Alert and oriented to time, place, person, mood and affect Laboratory Results 09/18/20 14:25: WBC 7.0, RBC 3.90 L, Hgb 11.1 L, Hct 35.2 L, MCV 90.3, MCH 28.5, MCHC 31.5 L, RDW Std Deviation 42.8, RDW Coeff of Violet 13.1, Plt Count 140 L, MPV 11.0, Immature Gran % (Auto) 0.300, Neut % (Auto) 74.9 H, Lymph % (Auto) 18.6 L, [place] % (Auto) 5.8, Eos % (Auto) 0.1, Baso % (Auto) 0.3, Absolute Neuts (auto) 5.3, Absolute Lymphs (auto) 1.31, Nucleated RBC % 0 09/18/20 14:25: PT 14.9, INR 1.2 09/18/20 14:25: Sodium 141, Potassium 4.4, Chloride 107, Carbon Dioxide 28.0, Anion Gap 6, BUN 34 H, Creatinine 0.88, Estim Creat Clear Calc 49.17, Est GFR (MDRD) Af Amer 81, Est GFR (MDRD) Non-Af 67, BUN/Creatinine Ratio 38.9 H, Glucose 91, Calcium 8.8, Troponin I < 0.015 09/18/20 17:08: POC Glucose 109 09/19/20 05:30: WBC 5.1, RBC 3.60 L, Hgb 10.2 L, Hct 31.9 L, MCV 88.6, MCH 28.3, MCHC 32.0, RDW Std Deviation 42.1, RDW Coeff of Violet 12.9, Plt Count 122 L, MPV 11.4, Immature Gran % (Auto) 0.400, Neut % (Auto) 85.5 H, Lymph % (Auto) 12.7 L, [place] % (Auto) 1.4, Eos % (Auto) 0.0, Baso % (Auto) 0.0, Absolute Neuts (auto) 4.4, Absolute Lymphs (auto) 0.65 L, Nucleated RBC % 0 Current Medications Acetaminophen (Acetaminophen 325 Mg Tablet) 650 mg PO Q6H PRN PRN PRN Reason: Pain Score 1-10/Temp > 100.7 F Albuterol Sulfate (Albuterol 2.5 Mg/3 Ml Vial.Neb.) 2.5 mg INHALATION Q2H PRN PRN PRN Reason: Shortness of Breath/Wheezing Albuterol/Ipratropium (Ipratropium/Albuterol Sulfate 3 Ml Ampul.Neb) 3 ml INHALATION Q6HWA.RT [facility] Last Admin: 09/19/20 12:57 Dose: 3 ml Documented by: Alprazolam (Alprazolam 0.5 Mg Tablet) 0.5 mg PO BID [facility] Last Admin: 09/19/20 07:56 Dose: 0.5 mg Documented by: Amlodipine Besylate (Amlodipine 2.5 Mg Tablet) 2.5 mg PO DAILY [facility] Last Admin: 09/19/20 07:55 Dose: 2.5 mg Documented by: Heparin Sodium (Porcine) (Heparin Injection (Vial) 5,000 Unit/Ml Vial) 5,000 unit SC Q12 [facility] Last Admin: 09/19/20 07:56 Dose: 5,000 unit Documented by: Metoprolol Succinate (Metoprolol(Xl)Succ 50 Mg Tablet) 150 mg PO DAILY [facility] Last Admin: 09/19/20 07:55 Dose: 150 mg Documented by: Ondansetron HCl (Ondansetron 4 Mg/2 Ml Vial) 4 mg IV Q8H PRN PRN PRN Reason: NAUSEA/VOMITING Oxycodone HCl (Oxycodone 5 Mg Tablet) 10 mg PO Q4H PRN PRN PRN Reason: Pain Score 4-5 Oxycodone HCl (Oxycodone 5 Mg Tablet) 10 mg PO Q4H PRN PRN PRN Reason: Pain Score 4-10 STROKE Vital Signs/Narrative: Vital Signs Pulse Resp Pulse Ox Pulse Ox Pulse Ox 09/19/20 12:57 68 22 H 92 09/19/20 11:01 91 94 Medical Necessity - Tobacco Use Smoking Status: Current every day smoker Assessment/Plan All Active Problems (Last Reviewed 09/07/20 @ 14:26 by Jessica Bartlett) Hypoxia (Acute) Acute respiratory insufficiency (Acute) Pulmonary hemorrhage (Acute) MGUS (monoclonal gammopathy of unknown significance) (Resolved) Traumatic hematoma of right foot (Resolved) Cellulitis of right foot (Resolved) Retinal hemorrhage (Resolved) History of incision and drainage (Resolved 03/2020) 1. Acute respiratory insufficiency post lung nodule biopsy - hx spiculated lung bx sent by Dr. Romero. Wheezing resolved. Weaned off o2. ongoing hemoptysis. Pulmonology consult. 2. Probably COPD - as above. wheezing resolved. 3. Spiculated lung nodule - as above, highly suspicious for cancer given her smoking hx. Follow up with Dr. Romero. 4. DMt2 - diet controlled. SSI while here. 5. Hx DVT - hold warfarin 6. Anxiety - xanax 7. HTN - norvasc DVT ppx: SCDs DC planning: attempt to wean off o2 prior to dc. plan walking pulse ox tomorrow AM. This patient was seen by Luis A Donis PA-C under the supervision of Dr. Berger. <Laurel Hernandez - Last Filed: 09/19/20 16:04> Vitals/I&O's: Vital Signs Temp Pulse Resp BP Pulse Ox 98.7 F 63 20 H 118/42 L 93 09/19/20 13:35 09/19/20 13:35 09/19/20 13:35 09/19/20 13:35 09/19/20 13:35 Oxygen Flow Rate (L/min) 2 Oxygen Delivery Method Room Air Weight: 117 lb 11.629 oz Body Mass Index (BMI) 20.2 Intake and Output for Last 24 Hours 09/17/20 09/18/20 09/19/20 23:59 23:59 23:59 Intake Total 750 / 750 Balance 750 / 750 Laboratory Results 09/18/20 17:08: POC Glucose 109 09/19/20 05:30: WBC 5.1, RBC 3.60 L, Hgb 10.2 L, Hct 31.9 L, MCV 88.6, MCH 28.3, MCHC 32.0, RDW Std Deviation 42.1, RDW Coeff of Violet 12.9, Plt Count 122 L, MPV 11.4, Immature Gran % (Auto) 0.400, Neut % (Auto) 85.5 H, Lymph % (Auto) 12.7 L, [place] % (Auto) 1.4, Eos % (Auto) 0.0, Baso % (Auto) 0.0, Absolute Neuts (auto) 4.4, Absolute Lymphs (auto) 0.65 L, Nucleated RBC % 0 Current Medications Acetaminophen (Acetaminophen 325 Mg Tablet) 650 mg PO Q6H PRN PRN PRN Reason: Pain Score 1-10/Temp > 100.7 F Albuterol Sulfate (Albuterol 2.5 Mg/3 Ml Vial.Neb.) 2.5 mg INHALATION Q2H PRN PRN PRN Reason: Shortness of Breath/Wheezing Albuterol/Ipratropium (Ipratropium/Albuterol Sulfate 3 Ml Ampul.Neb) 3 ml INHALATION Q6HWA.RT [facility] Last Admin: 09/19/20 12:57 Dose: 3 ml Documented by: Alprazolam (Alprazolam 0.5 Mg Tablet) 0.5 mg PO BID [facility] Last Admin: 09/19/20 07:56 Dose: 0.5 mg Documented by: Amlodipine Besylate (Amlodipine 2.5 Mg Tablet) 2.5 mg PO DAILY [facility] Last Admin: 09/19/20 07:55 Dose: 2.5 mg Documented by: Heparin Sodium (Porcine) (Heparin Injection (Vial) 5,000 Unit/Ml Vial) 5,000 unit SC Q12 [facility] Last Admin: 09/19/20 07:56 Dose: 5,000 unit Documented by: Metoprolol Succinate (Metoprolol(Xl)Succ 50 Mg Tablet) 150 mg PO DAILY [facility] Last Admin: 09/19/20 07:55 Dose: 150 mg Documented by: Ondansetron HCl (Ondansetron 4 Mg/2 Ml Vial) 4 mg IV Q8H PRN PRN PRN Reason: NAUSEA/VOMITING Oxycodone HCl (Oxycodone 5 Mg Tablet) 10 mg PO Q4H PRN PRN PRN Reason: Pain Score 4-5 Oxycodone HCl (Oxycodone 5 Mg Tablet) 10 mg PO Q4H PRN PRN PRN Reason: Pain Score 4-10 STROKE Vital Signs/Narrative: Vital Signs Temp Pulse Resp BP Pulse Ox 09/19/20 13:35 98.7 F 63 20 H 118/42 L 93 09/19/20 13:26 70 09/19/20 12:57 68 22 H 92 Assessment/Plan Patient seen by Luis A Donis PA-C under my supervision Patient seen and examined. She was admitted with a complaint of shortness of breath after she had a lung nodule biopsy. She also started coughing up blood and severe pain with the needle went in so she was taken to the ED after she could not be weaned off the oxygen. Patient seen and examined. Still complains of some shortness of breath though she is just on 1 L of oxygen. She states that the oxygen level was discharged prior to my seeing her. She still coughing up scant amounts of blood. She also complains of her sugar being poorly controlled. She says she is diabetic is diet controlled and she refuses to take any sliding scale in the hospital. She complains of pain on her left side and over the site of the nodule biopsy review of symptoms otherwise negative. She has remained hemodynamically stable. Vital Signs Temp Pulse Resp BP Pulse Ox 98.7 F 63 20 H 118/42 L 93 09/19/20 13:35 09/19/20 13:35 09/19/20 13:35 09/19/20 13:35 09/19/20 13:35 General: Alert, Oriented x3, Cooperative HEENT: Atraumatic, PERRLA, EOMI, Normocephalic Neck: Supple, No JVD, Negative Carotid Bruits Lungs: diminished breath sounds bibasally, no wheezes or crackles. on 1L of oxygen by nasal canula Cardiovascular: Regular rate, No murmurs Abdomen: Bowel Sounds Present, Soft, Non Tender Extremities: No edema, Capillary Refill Less than 3 Seconds Skin: No rashes, No breakdown Musculoskeletal: mild tenderness on palpation of left ribcage and over site of biopsy. Neurological: Cranial nerves II-XII grossly intact Psych/Mental Status: Normal Affect, Appropriate, Alert and oriented to time, place, person, mood and affect Plan is to titrate oxygen to maintain sats >90%. Patient tells me that due to extensive smoking history, she is convinced that the nodule is cancerous but she would not want any treatment if diagnosed with cancer as she has seen people however poor quality of life was on chemotherapy and radiation. She also does not want any insulin coverage for her diabetes and blood sugar essentially just monitor his sugars resolved. Will consult pulmonology in light of her ongoing hemoptysis. Rest as per Luis A JESUSC;s note, which I have reviewed and endorsed. Inpatient E&M: 58582 Subs Hosp L2
--- NOTE | 2020-09-19 14:08 | PCM.NTREPORT ---
Nutrition Therapy Report - History Nutrition Services has been consulted to:: Manage nutrient details of diet order Current diet / nutrition support order:: Regular diet - Anthropometric Measurements Height:: 5 ft 4 in Weight:: 53.4 kg Body Mass Index (BMI):: 20.2 - Relevant Labs Relevant Labs:: RBC 3.60 M/mm3 (4.2-5.4) L 09/19/20 05:30 Hgb 10.2 g/dL (12.0-15.0) L 09/19/20 05:30 Hct 31.9 % (37-47) L 09/19/20 05:30 MCHC 31.5 g/dL (32-36) L 09/18/20 14:25 Plt Count 122 K/mm3 (150-450) L 09/19/20 05:30 Neut % (Auto) 85.5 % (47-70) H 09/19/20 05:30 Lymph % (Auto) 12.7 % (19-41) L 09/19/20 05:30 Absolute Lymphs (auto) 0.65 X10^3/uL (0.83-4.51) L 09/19/20 05:30 BUN 34 mg/dL (7-18) H 09/18/20 14:25 BUN/Creatinine Ratio 38.9 RATIO (10-20) H 09/18/20 14:25 - Assessment Food / Nutrition-Related History:: Pt with continued good appetite and intake at meals. Diet is very routine to manage carbs and good glycemic control. Pt reports UBW~150 lbs about 1 year ago; calculated~22% wt loss x 12 months which is significant for malnutrition; +NFPA with muscle and fat wasting in the face, orbitals and clavicle areas. Pt refusing ONS saying it doesn't matter because I'm dying. Attempted to address importance of ONS to prevent further pro/saba depletion but, pt is not interested. 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 Evidence of Malnutrition Exists:: Yes Severe PCM:: Chronic Illness - Nutrition Intervention Nutrition Prescription:: Estimated Nutrition Needs~[id number] kcal (35 kcal/Kg) and. ~70-80 gm protein (1.4 gm pro/Kg) per day for repletion. - Food / Nutrient Delivery Interventions Summary of nutrition intervention:: Continue Regular diet as ordered; pt is effectively managing carbohydrates and glycemic control. Ideally pt would greatly benefit from ONS to prevent further pro/saba depletion but, pt is refusing all ONS at this time. Nutrition education provided?: Yes - Strongly encouraged to consider ONS. - MNT Monitoring Further MNT monitoring and evaluation required?: Yes MNT Follow-up in:: 3-5 days
[2020-09-19 21:50] LABS: Bedside Glucose 97 mg/dL (70-110)
[2020-09-20 02:44] VITALS: BP 123/52; PULSE 77; RESP 17; TEMP 36.8; O2SAT 94
--- NOTE | 2020-09-20 06:12 | CON.PCM_ITS ---
Reason for Consult Date of Consultation: 09/20/20 Reason for Consultation: Hemoptysis status post CT-guided lung biopsy History of Present Illness: The patient is a 74-year-old female, with a history as outlined below, who presented to the emergency department on September 18 with complaints of shortness of breath, hypoxia and hemoptysis. The patient had undergone a CT-guided lung biopsy on September 18 of a concerning left lower lobe lung nodule. The patient at her baseline is on Coumadin therapy due to a history of lower extremity DVT. The patient does have an extensive tobacco abuse history and continues to smoke 0.25 packs of cigarettes per day. She has a presumptive history of COPD as well, but has never completed pulmonary function studies. On presentation to the emergency department, the patient was noted to be afebrile and hemodynamically stable. She was initially requiring 2 L/min of supplemental oxygen to maintain appropriate saturations. Laboratory evaluation revealed a normal white blood cell count. Coagulation profile revealed an INR of 1.2. Chemistry profile was unremarkable. Troponin was negative. CTA chest was obtained which showed no evidence for PE. The patient did have evidence of bilateral nodular densities which had increased in size since the prior chest imaging. There was some surrounding hemorrhage noted at the patient's left lower lobe biopsy site. The patient was subsequently admitted to the hospital for observation and maintained on bronchodilator therapy. She has been weaned from supplemental oxygen and is currently maintaining appropriate oxygen saturations on room air. I did personally review the patient's recent CT-guided lung biopsy results with her this morning. 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) Brain lesion (Chronic) Glaucoma (Chronic) Bilateral carotid artery stenosis (Chronic) Ectopic atrial rhythm (Chronic) History of CVA (cerebrovascular accident) (Chronic 06/02/20) Small left lentiform nucleus acute infarct Left carotid artery stenosis (Chronic) Deep vein thrombosis of right lower extremity (Chronic 05/19/20) Essential (primary) hypertension (Chronic) Hyperlipidemia (Chronic) Nicotine dependence (Chronic) Type 2 diabetes mellitus (Chronic) Stage III chronic kidney disease (Chronic) Medical History: Medical History (Last Reviewed 09/07/20 @ 14:26 by Jessica Bartlett) penitentiary current use of anticoagulant therapy (Chronic) Z79.01 Ovarian cyst (Chronic) N83.209 Paralyzed vocal cords (Chronic) J38.00 MGUS (monoclonal gammopathy of unknown significance) (Resolved) D47.2 Anemia (Chronic) D64.9 CKD (chronic kidney disease) (Chronic) N18.9 Tremor (Chronic) R25.1 Type 2 diabetes mellitus (Chronic) E11.9 Cataract (Chronic) H26.9 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) K55.21 Brain lesion (Chronic) G93.9 Glaucoma (Chronic) H40.9 Bilateral carotid artery stenosis (Chronic) I65.23 Traumatic hematoma of right foot (Resolved) S90.31XA Cellulitis of right foot (Resolved) L03.115 Retinal hemorrhage (Resolved) H35.60 Ectopic atrial rhythm (Chronic) I49.1 History of CVA (cerebrovascular accident) (Chronic) Onset Date: 06/02/20 Z86.73 Small left lentiform nucleus acute infarct Left carotid artery stenosis (Chronic) I65.22 Deep vein thrombosis of right lower extremity (Chronic) Onset Date: 05/19/20 I82.401 Essential (primary) hypertension (Chronic) I10 Hyperlipidemia (Chronic) E78.5 Nicotine dependence (Chronic) F17.200 Type 2 diabetes mellitus (Chronic) E11.9 Stage III chronic kidney disease (Chronic) N18.3 Peptic ulcer K27.9 Allergies bee venom protein (honey bee) Allergy (Verified 09/18/20 13:10) Rash fluconazole Allergy (Verified 09/18/20 13:10) heart racing Iodine and Iodide Containing Produc Allergy (Verified 09/18/20 13:10) Unknown lisinopril Allergy (Verified 09/18/20 13:10) Rash Penicillins Allergy (Verified 09/18/20 13:10) Unknown shellfish derived Allergy (Verified 09/18/20 13:10) Other sodium chloride for inhalation [From Saline] Allergy (Verified 09/18/20 13:10) PT UNSURE OF REACTION ciprofloxacin [From Cipro] Adverse Reaction (Verified 09/18/20 13:10) Diarrhea clindamycin Adverse Reaction (Verified 09/18/20 13:10) Diarrhea glimepiride Adverse Reaction (Verified 09/18/20 13:10) Other MAKES ME DRUNK Sulfa (Sulfonamide Antibiotics) Adverse Reaction (Verified 09/18/20 13:10) Diarrhea Home Medications: Ambulatory Orders Medication Instructions Recorded Cholecalciferol (VIT D3) [Vitamin 1,000 unit PO DAILY 06/27/19 D3] Vitamin B Complex 1 ea PO QHS 06/27/19 Vitamin E 400 unit PO DAILY 10/22/19 alprazolam 0.5 mg tablet 0.5 mg PO BID tab 01/21/20 Amlodipine Besylate 2.5 mg PO DAILY 07/26/20 Metoprolol Succinate 150 mg PO DAILY 07/26/20 Rosuvastatin Calcium 20 mg PO QHS 07/26/20 warfarin 3 mg tablet 3 mg PO QHS #30 tab 09/13/20 Oxycodone [Oxyir] 5 mg PO Q4H PRN PRN 3 Days #18 tab 09/20/20 Surgical History: Surgical History (Last Reviewed 09/07/20 @ 14:26 by Jessica Bartlett) History of incision and drainage (Resolved) Onset Date: 03/2020 Z98.890 Incision and drainage right foot with evacuation of hematoma History of bilateral cataract extraction Z98.41, Z98.42 History of bone marrow biopsy Z98.890 2018 History of colonoscopy Z98.890 2018 History of endoscopy Z98.890 2018 H/O total hysterectomy Z90.710 History of laminectomy Z98.890 History of tonsillectomy Z90.89 Surgical History: hysterectomy, tonsillectomy, - Psychiatric History: No pertinent psych hx GIFT CONSULTANT History: No pertinent GIFT CONSULTANT history Smoking Status: Current every day smoker - *Family History Maternal Family History: Family History (Last Reviewed 09/18/20 @ 16:41 by Luis A GUZMAN PA) Father Hypertension Cancer Heart disease Sister Kidney disease Diabetes Mother Asthma History Items: No pertinent history Paternal Family History: Family History (Last Reviewed 09/18/20 @ 16:41 by Luis A GUZMAN PA) Father Hypertension Cancer Heart disease Sister Kidney disease Diabetes Mother Asthma History Items: No pertinent history Review of Systems Constitutional: Reports: Weakness, Fatigue. Denies: Chills, Fever Eyes: Denies: Blurred vision, Double vision HEENT: Denies: Head Aches, Sinus Congestion, Sinus Drainage Cardiovascular: Reports: Chest Pain Respiratory: Reports: Cough, Hemoptysis, Shortness of Breath Gastrointestinal: Denies: Abdominal Pain, Nausea, Vomiting Genitourinary: Denies: Dysuria Musculoskeletal: Denies: Joint Pain, Joint Tenderness Skin: Denies: Rash, Wounds Neurological: Denies: Numbness, Tingling, Focal weakness Psychiatric: Reports: Anxiety Hematologic/ Lymphatic: Reports: Anemia, Hx of blood clot Patient Problems: Active and Suspected Problems (Last Reviewed 09/07/20 @ 14:26 by Jessica Bartlett) Hypoxia (Acute) Acute respiratory insufficiency (Acute) Pulmonary hemorrhage (Acute) Objective: The patient's most recent lab work, culture data and imaging studies have all been personally reviewed. - Physical Exam Vitals/I&O's: Vital Signs Temp Pulse Resp BP Pulse Ox 98.3 F 77 17 123/52 H 94 09/20/20 02:44 09/20/20 02:44 09/20/20 02:44 09/20/20 02:44 09/20/20 02:44 Oxygen Flow Rate (L/min) 2 Oxygen Delivery Method Room Air Weight: 117 lb 11.629 oz Body Mass Index (BMI) 20.2 Intake and Output for Last 24 Hours 09/18/20 09/19/20 09/20/20 23:59 23:59 23:59 Intake Total 750 / 750 440 / 440 Balance 750 / 750 440 / 440 General: Alert, Cooperative HEENT: Atraumatic, PERRLA, Normocephalic Oral: No Gingival or Mucosal Lesions/ Ulcerations Neck: Supple, No Nodes, Trachea Midline Lungs: No rhonchi, No wheeze, No rales, Diminished Cardiovascular: Regular rate, Regular Rhythm Abdomen: Bowel Sounds Present, Soft, Non Tender Extremities: No clubbing, No cyanosis, No edema Skin: No breakdown Musculoskeletal: No Tenderness to Palpation of Joints or Extremities Lymphatic: No Cervical, Supraclavicular, or Inguinal Adenopathy Neurological: Cranial nerves II-XII grossly intact, Neuro grossly intact Psych/Mental Status: Anxious Labs (Last 48 Hours) 09/18/20 09/18/20 09/18/20 14:25 14:25 14:25 WBC 7.0 RBC 3.90 L Hgb 11.1 L Hct 35.2 L MCV 90.3 MCH 28.5 MCHC 31.5 L RDW Std Deviation 42.8 RDW Coeff of Violet 13.1 Plt Count 140 L MPV 11.0 Immature Gran % (Auto) 0.300 Neut % (Auto) 74.9 H Lymph % (Auto) 18.6 L [place] % (Auto) 5.8 Eos % (Auto) 0.1 Baso % (Auto) 0.3 Absolute Neuts (auto) 5.3 Absolute Lymphs (auto) 1.31 Nucleated RBC % 0 PT 14.9 INR 1.2 Sodium 141 Potassium 4.4 Chloride 107 Carbon Dioxide 28.0 Anion Gap 6 BUN 34 H Creatinine 0.88 Estim Creat Clear Calc 49.17 Est GFR (MDRD) Af Amer 81 Est GFR (MDRD) Non-Af 67 BUN/Creatinine Ratio 38.9 H Glucose 91 Calcium 8.8 Troponin I < 0.015 POC Glucose 09/18/20 09/19/20 09/19/20 17:08 05:30 21:25 WBC 5.1 RBC 3.60 L Hgb 10.2 L Hct 31.9 L MCV 88.6 MCH 28.3 MCHC 32.0 RDW Std Deviation 42.1 RDW Coeff of Violet 12.9 Plt Count 122 L MPV 11.4 Immature Gran % (Auto) 0.400 Neut % (Auto) 85.5 H Lymph % (Auto) 12.7 L [place] % (Auto) 1.4 Eos % (Auto) 0.0 Baso % (Auto) 0.0 Absolute Neuts (auto) 4.4 Absolute Lymphs (auto) 0.65 L Nucleated RBC % 0 PT INR Sodium Potassium Chloride Carbon Dioxide Anion Gap BUN Creatinine Estim Creat Clear Calc Est GFR (MDRD) Af Amer Est GFR (MDRD) Non-Af BUN/Creatinine Ratio Glucose Calcium Troponin I POC Glucose 109 97 Clinical Impression(s) from Imaging Studies Chest CTA 09/18/20 14:11 IMPRESSION: Status post biopsy of a nodule in the left lower lobe with resultant hemorrhage surrounding the nodular density with a small left pleural effusion. The previously seen nodule in the posterior medial segment of the right lower lobe is not seen at this time. Increased size of the nodule seen in the posterior aspect of the left upper lobe. Electronically Signed: Kamlesh Rhodes MD at 15:36 EST , Service support , Chest X-Ray 09/19/20 08:00 IMPRESSION: Increased markings at the left lung base suggestive of left basilar atelectasis. There is blunting of the left costophrenic angle. Electronically Signed: Kamlesh Rhodes MD at 8:46 EST , Service support , Current Medications Acetaminophen (Acetaminophen 325 Mg Tablet) 650 mg PO Q6H PRN PRN PRN Reason: Pain Score 1-10/Temp > 100.7 F Albuterol Sulfate (Albuterol 2.5 Mg/3 Ml Vial.Neb.) 2.5 mg INHALATION Q2H PRN PRN PRN Reason: Shortness of Breath/Wheezing Albuterol/Ipratropium (Ipratropium/Albuterol Sulfate 3 Ml Ampul.Neb) 3 ml INHALATION Q6HWA.RT [facility] Last Admin: 09/19/20 18:50 Dose: 3 ml Documented by: Alprazolam (Alprazolam 0.5 Mg Tablet) 0.5 mg PO BID [facility] Last Admin: 09/19/20 22:14 Dose: 0.5 mg Documented by: Amlodipine Besylate (Amlodipine 2.5 Mg Tablet) 2.5 mg PO DAILY [facility] Last Admin: 09/19/20 07:55 Dose: 2.5 mg Documented by: Heparin Sodium (Porcine) (Heparin Injection (Vial) 5,000 Unit/Ml Vial) 5,000 unit SC Q12 [facility] Last Admin: 09/19/20 21:28 Dose: 5,000 unit Documented by: Metoprolol Succinate (Metoprolol(Xl)Succ 50 Mg Tablet) 150 mg PO DAILY [facility] Last Admin: 09/19/20 07:55 Dose: 150 mg Documented by: Nutritional Formula (Lactose Free) (Glucerna Shake 120 Ml Liquid) 120 ml PO TIDCM [facility] Last Admin: 09/19/20 16:34 Dose: Not Given Documented by: Ondansetron HCl (Ondansetron 4 Mg/2 Ml Vial) 4 mg IV Q8H PRN PRN PRN Reason: NAUSEA/VOMITING Oxycodone HCl (Oxycodone 5 Mg Tablet) 10 mg PO Q4H PRN PRN PRN Reason: Pain Score 4-5 Oxycodone HCl (Oxycodone 5 Mg Tablet) 10 mg PO Q4H PRN PRN PRN Reason: Pain Score 4-10 Assessment/Plan All Active Problems (Last Reviewed 09/07/20 @ 14:26 by Jessica Bartlett) Hypoxia (Acute) Acute respiratory insufficiency (Acute) Pulmonary hemorrhage (Acute) MGUS (monoclonal gammopathy of unknown significance) (Resolved) Traumatic hematoma of right foot (Resolved) Cellulitis of right foot (Resolved) Retinal hemorrhage (Resolved) History of incision and drainage (Resolved 03/2020) RECOMMENDATIONS: 1. Continue bronchodilator therapy while admitted to the hospital. 2. Encourage incentive spirometer use and mobilize patient as tolerated. 3. Recommend evaluation by oncology prior to patient making any definitive decisions regarding treatment. 4. The patient is otherwise stable for discharge and can follow-up with Dr. Romero in the pulmonary medicine clinic as previously scheduled. IMPRESSIONS: 1. Hemoptysis Hemoptysis is a common complication of CT-guided lung biopsy. She does report that her hemoptysis is resolving as of this morning and appears to be old blood. No further intervention is required at this time. 2. New diagnosis of non-small cell lung cancer The patient's recent CT-guided lung biopsy results were reviewed with her this morning. The patient is unclear at this time as to whether she would want to pursue any form of treatment. I did strongly recommend that the patient be evaluated by oncology, at a minimum, to discuss potential treatment options prior to her making a definitive decision. The patient did report that she already has an established relationship with Dr. Adkins at [facility], but is interested in transferring all of her care here and is therefore interested in being evaluated by an oncologist here. 3. Chronic tobacco dependency/presumed COPD The patient does have an extensive smoking history and continues to smoke 0.25 packs of cigarettes per day. I personally spent 4 minutes discussing the deleterious effects of continued tobacco use with the patient, including modalities which could be utilized to achieve a smoke-free lifestyle. It was previously recommended by Dr. Romero during her last office visit that pulmonary function studies be obtained. However, to date, the patient has not completed her PFTs. For now, it is reasonable to continue bronchodilator therapy while admitted to the hospital. 4. History of lower extremity DVT/hypertension/anxiety Complicates care, management, recovery and prognosis. Continue home medications as indicated. CODE status: Discussed CODE status at length including difference between FULL code, DNR-CCA and DNR-CC status. Following discussions about the differences in these status, patient requested DNR CCA without intubation CODE STATUS. Advanced Care Planning Face to Face Time: 12 minutes This note was generated with [employer] dictation software. It may contain incorrect words, spelling, and punctuation that were not noted in checking the note before signing. Inpatient E&M: 16081 Init Hosp L3 Procedures: 39546 Advncd Care Plan 30 Min - Behavior Interventions Behavior Intervention: 71600 Smoking Cessation 3-10 min
[2020-09-20 06:44] VITALS: O2SAT 93
[2020-09-20 07:46] LABS: Bedside Glucose 97 mg/dL (70-110)
[2020-09-20 09:20] VITALS: BP 134/55; PULSE 59; RESP 20; TEMP 36.5; O2SAT 97
[2020-09-20] MEDS: ALPRAZolam 0.5 MG Tablet PO (09:46)
[2020-09-20] MEDS: amLODIPine 2.5 MG Tablet PO (09:46)
[2020-09-20] MEDS: Heparin Injection (Vial) 5,000 UNIT/ML VIAL 5000 UNIT SC (09:46)
--- NOTE | 2020-09-20 09:57 | VDLE_ITS ---
Reason For Study: PAIN Procedure LEFT Exam performed portable in patient room. GSV is normal. A preliminary report was called and/or faxed CFV is compressible, spontaneous, phasic, to MS3. competent, and demonstrates normal augmentation. FV is compressible, spontaneous, phasic, competent and demonstrates normal augmentation. POP V is compressible, spontaneous, phasic, competent and demonstrates normal augmentation. T/P Trunk is compressible. PTV is compressible. LT PerV is compressible. Interpretation Summary There is no evidence of left lower extremity deep vein thrombosis. Left great saphenous vein appears patent and compressible segmentally. Ordering Physician: Luis A Donis Referring Physician: PAUL BRITTON Performed By: Karen Lee, ELIESERCS, RVT
--- NOTE | 2020-09-20 10:05 | PCM.DC ---
- Discharge Diagnoses Current Active Problems: Current Active and Chronic Problems (Last Reviewed 09/07/20 @ 14:26 by Jessica Bartlett) Hypoxia (Acute) Acute respiratory insufficiency (Acute) Pulmonary hemorrhage (Acute) Multiple lung nodules on CT (Chronic) Paralyzed vocal cords (Chronic) Type 2 diabetes mellitus (Chronic) History of CVA (cerebrovascular accident) (Chronic 06/02/20) Small left lentiform nucleus acute infarct Left carotid artery stenosis (Chronic) Deep vein thrombosis of right lower extremity (Chronic 05/19/20) Essential (primary) hypertension (Chronic) Hyperlipidemia (Chronic) Nicotine dependence (Chronic) Type 2 diabetes mellitus (Chronic) Stage III chronic kidney disease (Chronic) You will use the following diet at home:: No restrictions Your food should be the consistency of: Regular Your liquids should be the consistency of: Regular/Thin Discharge Activity: Return to Normal Activity, May not drive while taking narcotic pain medications. Call your doctor if you observe: Shortness of breath, - - increased blood in sputum Additional Instructions: ok to start coumadin tonight, need INR checked in 4 days Allergies/Adverse Reactions: Allergies bee venom protein (honey bee) Allergy (Verified 09/18/20 13:10) Rash fluconazole Allergy (Verified 09/18/20 13:10) heart racing Iodine and Iodide Containing Produc Allergy (Verified 09/18/20 13:10) Unknown lisinopril Allergy (Verified 09/18/20 13:10) Rash Penicillins Allergy (Verified 09/18/20 13:10) Unknown shellfish derived Allergy (Verified 09/18/20 13:10) Other sodium chloride for inhalation [From Saline] Allergy (Verified 09/18/20 13:10) PT UNSURE OF REACTION ciprofloxacin [From Cipro] Adverse Reaction (Verified 09/18/20 13:10) Diarrhea clindamycin Adverse Reaction (Verified 09/18/20 13:10) Diarrhea glimepiride Adverse Reaction (Verified 09/18/20 13:10) Other MAKES ME DRUNK Sulfa (Sulfonamide Antibiotics) Adverse Reaction (Verified 09/18/20 13:10) Diarrhea Medications to take at Discharge Cholecalciferol (VIT D3) [Vitamin D3] 1,000 unit PO DAILY 06/27/19 Vitamin B Complex 1 ea PO QHS 06/27/19 Vitamin E 400 unit PO DAILY 10/22/19 alprazolam 0.5 mg tablet 0.5 mg PO BID tab 01/21/20 Amlodipine Besylate 2.5 mg PO DAILY 07/26/20 Metoprolol Succinate 150 mg PO DAILY 07/26/20 Rosuvastatin Calcium 20 mg PO QHS 07/26/20 warfarin 3 mg tablet 3 mg PO QHS #30 tab 09/13/20 Oxycodone [Oxyir] 5 mg PO Q4H PRN PRN 3 Days #18 tablet 09/20/20 The following prescriptions were given: Oxycodone [Oxyir] 5 mg PO Q4H PRN PRN 3 Days #18 tablet PRN Reason: Pain Score 6-10 Transmission Status: Received by CHRISTIN DUVAL-[address] [facility] Primary Care Physician: Komal Novoa MD [Primary Care Provider] - Please follow up with your Primary Care Physician in: 1-2 weeks Test Results: Test results from this visit will be discussed in further detail at your follow-up appointment, if applicable. Please Follow Up With: Yanick Romero MD - Pulmonology When: 2 weeks Please Follow Up With: Sylvia Crockett NP, [facility] - Oncology When: as directed Proposed Discharge Date: 09/20/20
--- NOTE | 2020-09-20 10:30 | CASEMGMT ---
RAJINDER FERNÁNDEZ Face to Face with patient for initial transition planning/care coordination assessment. RN CM introduced self and role at [facility]. Patient lying in bed, alert and oriented, sister at bedside. Patient willing to participate in assessment and is able to answer all questions appropriately. Care providers, pharmacy, and demographics verified. Patient wishes to discharge home, denies need for home health at this time. Patient states she has no further needs or concerns at this time. CM to follow for discharge planning needs that may arise. PCP: [facility] Specialists: Soniay, logistics operations manager; Marcella, wirer helper; , detective and intelligence analyst Preferred Pharmacy: [facility] Insurance: [employer] Prescription Benefit: yes Living Will/HPOA: yes, sister Yari Fraga LNOK: sister Living Arrangements: Patient lives with sister in a 2 story home. Patient states she is able to ambulate stairs and is independent at home. Transportation: sister, self DME/HHC: Patient states she has cane, walker, wheelchair, raised toilet, and grab bars. Patient denies previous HHC. Disposition Plan: Patient to discharge home with family support and follow-up plans in place. Solange FLANNERY, RN, CM
--- NOTE | 2020-09-20 11:42 | DS.PCM_ITS ---
<Luis A Donis - Last Filed: 09/20/20 11:42> Discharge Date and Diagnosis - Problem List Patient Problems: Active and Suspected Problems (Last Reviewed 09/07/20 @ 14:26 by Jessica Bartlett) Hypoxia (Acute) Acute respiratory insufficiency (Acute) Pulmonary hemorrhage (Acute) Date of Admission: 09/18/20 Date of Discharge: 09/20/20 - Primary Discharge Diagnosis Acute Problems: Active Problems (Last Reviewed 09/07/20 @ 14:26 by Jessica Bartlett) Acute respiratory insufficiency (Acute) Pulmonary hemorrhage (Acute) Acute blood loss anemia 2/2 hemoptysis, mild, with thrombocytopenia and chronic iron deficiency Non small cell lung cancer Hx DVT Moderate protein calorie malnutrition - Secondary Discharge Diagnosis Chronic Problems: Chronic Problems (Last Reviewed 09/07/20 @ 14:26 by Jessica Bartlett) Multiple lung nodules on CT (Chronic) jail current use of anticoagulant therapy (Chronic) Ovarian cyst (Chronic) Paralyzed vocal cords (Chronic) Anemia (Chronic) CKD (chronic kidney disease) (Chronic) Tremor (Chronic) Type 2 diabetes mellitus (Chronic) Cataract (Chronic) 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) Brain lesion (Chronic) Glaucoma (Chronic) Bilateral carotid artery stenosis (Chronic) Ectopic atrial rhythm (Chronic) History of CVA (cerebrovascular accident) (Chronic 06/02/20) Small left lentiform nucleus acute infarct Left carotid artery stenosis (Chronic) Deep vein thrombosis of right lower extremity (Chronic 05/19/20) Essential (primary) hypertension (Chronic) Hyperlipidemia (Chronic) Nicotine dependence (Chronic) Type 2 diabetes mellitus (Chronic) Stage III chronic kidney disease (Chronic) Hospital Course and Treatment Imaging Results: CT/CTA Chest W/WO Contrast IMPRESSION: Status post biopsy of a nodule in the left lower lobe with resultant hemorrhage surrounding the nodular density with a small left pleural effusion. The previously seen nodule in the posterior medial segment of the right lower lobe is not seen at this time. Increased size of the nodule seen in the posterior aspect of the left upper lobe. RAD/Chest 1 View (Portable) IMPRESSION: Increased markings at the left lung base suggestive of left basilar atelectasis. There is blunting of the left costophrenic angle. 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 The patient had pain, hemoptysis, and hypoxia following the procedure. She had held her warfarin for the procedure and her INR was appropriate at 1.2. She had mild anemia at 11.1 and mild thrombocytopenia at 140. She was admitted to the med surg floor. Pulmonary medicine was consulted - she follows Dr. Romero as an outpatient. The patient had a CTA chest which showed hemorrhage surrounding the nodule and a small left pleural effusion. The patient had some wheezing and was given steroids and aerosols. She was able to be weaned off o2 at rest and with exertion the following day altho she continued to have some dark red hemoptysis. Hgb declined from 11.[address] Lainez spoke with the patient regarding her diagnosis of non small cell lung cancer. The patient requested to speak to [facility], who were consulted to review possible treatment options with her. I spoke with Dr. Lainez regarding the warfarin and he recommended resuming it at discharge as the hemoptysis is dark red and it will take time to get her inr therapeutic. She talked to her PCP who wants her to get an INR in 4 days after resuming warfarin. The patient was discharged home in stable condition. She will need follow up with oncology as directed, pulmonology in 2 weeks, and her PCP in 1-2 weeks. This patient was seen by Luis A Donis PA-C under the supervision of Dr. Hernandez [] Patient Problems: Active and Suspected Problems (Last Reviewed 09/07/20 @ 14:26 by Jessica Bartlett) Hypoxia (Acute) Acute respiratory insufficiency (Acute) Pulmonary hemorrhage (Acute) - Physical Exam Vitals/I&O's: Vital Signs Temp Pulse Resp BP Pulse Ox 97.7 F L 59 L 20 H 134/55 H 97 09/20/20 09:20 09/20/20 09:20 09/20/20 09:20 09/20/20 09:20 09/20/20 09:20 Oxygen Flow Rate (L/min) 2 Oxygen Delivery Method Room Air Weight: 117 lb 11.629 oz Body Mass Index (BMI) 20.2 Intake and Output for Last 24 Hours 09/18/20 09/19/20 09/20/20 23:59 23:59 23:59 Intake Total 750 / 750 740 / 740 Balance 750 / 750 740 / 740 General: Alert, Oriented x3, Cooperative HEENT: Atraumatic, PERRLA, EOMI, Normocephalic Neck: Supple, No JVD, Negative Carotid Bruits Lungs: Normal air movement, Rales - BL bases Cardiovascular: Regular rate, No murmurs Abdomen: Bowel Sounds Present, Soft, Non Tender Extremities: No edema, Capillary Refill Less than 3 Seconds Skin: No rashes, No breakdown Musculoskeletal: No Tenderness to Palpation of Joints or Extremities Neurological: Cranial nerves II-XII grossly intact, - - resting tremor Psych/Mental Status: Normal Affect, Appropriate, Alert and oriented to time, place, person, mood and affect Laboratory Results 09/19/20 21:25: POC Glucose 97 09/20/20 07:29: POC Glucose 97 Current Medications Acetaminophen (Acetaminophen 325 Mg Tablet) 650 mg PO Q6H PRN PRN PRN Reason: Pain Score 1-10/Temp > 100.7 F Albuterol Sulfate (Albuterol 2.5 Mg/3 Ml Vial.Neb.) 2.5 mg INHALATION Q2H PRN PRN PRN Reason: Shortness of Breath/Wheezing Albuterol/Ipratropium (Ipratropium/Albuterol Sulfate 3 Ml Ampul.Neb) 3 ml INHALATION Q6HWA.RT [facility] Last Admin: 09/19/20 18:50 Dose: 3 ml Documented by: Alprazolam (Alprazolam 0.5 Mg Tablet) 0.5 mg PO BID [facility] Last Admin: 09/20/20 09:46 Dose: 0.5 mg Documented by: Amlodipine Besylate (Amlodipine 2.5 Mg Tablet) 2.5 mg PO DAILY [facility] Last Admin: 09/20/20 09:46 Dose: 2.5 mg Documented by: Heparin Sodium (Porcine) (Heparin Injection (Vial) 5,000 Unit/Ml Vial) 5,000 unit SC Q12 [facility] Last Admin: 09/20/20 09:46 Dose: 5,000 unit Documented by: Metoprolol Succinate (Metoprolol(Xl)Succ 50 Mg Tablet) 150 mg PO DAILY [facility] Last Admin: 09/19/20 07:55 Dose: 150 mg Documented by: Nutritional Formula (Lactose Free) (Glucerna Shake 120 Ml Liquid) 120 ml PO TIDCM [facility] Last Admin: 09/20/20 09:43 Dose: Not Given Documented by: Ondansetron HCl (Ondansetron 4 Mg/2 Ml Vial) 4 mg IV Q8H PRN PRN PRN Reason: NAUSEA/VOMITING Oxycodone HCl (Oxycodone 5 Mg Tablet) 10 mg PO Q4H PRN PRN PRN Reason: Pain Score 4-5 Oxycodone HCl (Oxycodone 5 Mg Tablet) 10 mg PO Q4H PRN PRN PRN Reason: Pain Score 4-10 Discharge Diet: No Restrictions Discharge Activity: Return to Normal Activity, May not drive while taking narcotic pain medications. Call your doctor if you observe: Shortness of breath, - - increased blood in sputum Home Medications: Medications to take at Discharge Cholecalciferol (VIT D3) [Vitamin D3] 1,000 unit PO DAILY 06/27/19 Vitamin B Complex 1 ea PO QHS 06/27/19 Vitamin E 400 unit PO DAILY 10/22/19 alprazolam 0.5 mg tablet 0.5 mg PO BID tab 01/21/20 Amlodipine Besylate 2.5 mg PO DAILY 07/26/20 Metoprolol Succinate 150 mg PO DAILY 07/26/20 warfarin 3 mg tablet 3 mg PO QHS #30 tab 09/13/20 Oxycodone [Oxyir] 5 mg PO Q4H PRN PRN 3 Days #18 tab 09/20/20 rosuvastatin 20 mg tablet 20 mg PO QHS #90 tab 09/20/20 Following Prescriptions Were Given to Patient: Oxycodone [Oxyir] 5 mg PO Q4H PRN PRN 3 Days #18 tab PRN Reason: Pain Score 6-10 Transmission Status: Received by CHRISTIN DUVAL-[address] [facility] Primary Care Physician: Komal Novoa MD [Primary Care Provider] - Please follow up with your Primary Care Physician in: 1-2 weeks Please Follow Up With: Yanick Romero MD - Pulmonology When: 2 weeks Please Follow Up With: Sylvia Crockett NP, [employer]M [employer]ER-C - Oncology When: as directed Disposition: Home Minutes spent on discharge:: 35 Patient Condition:: Stable Medical Necessity - Tobacco Use Smoking Status: Current every day smoker Meaningful Use Info Meaningful Use Diagnoses (Choose all that apply): None applicable <Laurel Hernandez - Last Filed: 09/20/20 15:57> Discharge Date and Diagnosis - Primary Discharge Diagnosis Acute Problems: Active Problems (Last Reviewed 09/07/20 @ 14:26 by Jessica Bartlett) Hypoxia (Acute) Acute respiratory insufficiency (Acute) Pulmonary hemorrhage (Acute) - Secondary Discharge Diagnosis Chronic Problems: Chronic Problems (Last Reviewed 09/07/20 @ 14:26 by Jessica Bartlett) Multiple lung nodules on CT (Chronic) jail current use of anticoagulant therapy (Chronic) Ovarian cyst (Chronic) Paralyzed vocal cords (Chronic) Anemia (Chronic) CKD (chronic kidney disease) (Chronic) Tremor (Chronic) Type 2 diabetes mellitus (Chronic) Cataract (Chronic) 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) Brain lesion (Chronic) Glaucoma (Chronic) Bilateral carotid artery stenosis (Chronic) Ectopic atrial rhythm (Chronic) History of CVA (cerebrovascular accident) (Chronic 06/02/20) Small left lentiform nucleus acute infarct Left carotid artery stenosis (Chronic) Deep vein thrombosis of right lower extremity (Chronic 05/19/20) Essential (primary) hypertension (Chronic) Hyperlipidemia (Chronic) Nicotine dependence (Chronic) Type 2 diabetes mellitus (Chronic) Stage III chronic kidney disease (Chronic) Hospital Course and Treatment Summary of Care Provided: Patient seen by Luis A Donis PA-C under my supervision The patient is a 74 year old F with a past medical history as outlined who was admitted through the ED on 09/18/2020 with a complaint of shortness of breath. Patient had a spiculated lung nodule biopsied on the day of admission and after the procedure, patient's oxygen was low and she was coughing up blood and had pain at the site of the biopsy. She could not be weaned off of oxygen so she was admitted to be managed for acute hypoxic respiratory insufficiency and hemoptysis post lung biopsy. Her Coumadin was held. INR was 1.2. Hemoglobin was 11.1. Pulmonology was consulted. CT of the chest done showed hemorrhage around the nodule and a small left pleural effusion. She was also given steroids for wheezing. She was gradually weaned off of oxygen. She continued to have some dark red hemoptysis and hemoglobin dropped to 10.2 likely due to hemoptysis. Patient's pathology report resulted as non-small cell carcinoma, favor adenocarcinoma and consistent with lung primary. Patient stated that she did not think she would want to have treatment for the cancer. Oncology was however consulted for patient evaluation with treatment options to be able to make an informed decision. Per pulmonology recommendation, Coumadin was resumed at time of discharge and she was follow-up with her PCP in 4 days time to get a repeat INR. Patient was discharged home on 09/20/2020 and is to follow-up with oncology and pulmonology as well as a PCP. Patient seen and examined prior to discharge. Pain had improved and she denied any shortness of breath. She had no complaints. Review of systems otherwise negative. Her sister was present at time of review. labs and vitals reviewed, home medications reviewed and reconciled. O/E: Vital Signs Temp Pulse Resp BP Pulse Ox 97.7 F L 60 16 132/59 H 93 09/20/20 09:20 09/20/20 12:53 09/20/20 12:50 09/20/20 12:50 09/20/20 12:50 [] General: Alert, Oriented x3, Cooperative HEENT: Atraumatic, PERRLA, EOMI, Normocephalic Neck: Supple, No JVD, Negative Carotid Bruits Lungs: diminished breath sounds bibasally, no wheezes or crackles. Cardiovascular: Regular rate, No murmurs Abdomen: Bowel Sounds Present, Soft, Non Tender Extremities: No edema, Capillary Refill Less than 3 Seconds Skin: No rashes, No breakdown Musculoskeletal: No Tenderness to Palpation of Joints or Extremities Neurological: Cranial nerves II-XII grossly intact Psych/Mental Status: Normal Affect, Appropriate, Alert and oriented to time, place, person, mood and affect Plan is for discharge home. Rest as per Luis A Donis PA-C's note which I have reviewed and endorsed. - Physical Exam Vitals/I&O's: Vital Signs Temp Pulse Resp BP Pulse Ox 97.7 F L 60 16 132/59 H 93 09/20/20 09:20 09/20/20 12:53 09/20/20 12:50 09/20/20 12:50 09/20/20 12:50 Oxygen Flow Rate (L/min) 2 Oxygen Delivery Method Room Air Weight: 117 lb 11.629 oz Body Mass Index (BMI) 20.2 Intake and Output for Last 24 Hours 09/18/20 09/19/20 09/20/20 23:59 23:59 23:59 Intake Total 750 / 750 1340 / 1340 Balance 750 / 750 1340 / 1340 Laboratory Results 09/19/20 21:25: POC Glucose 97 09/20/20 07:29: POC Glucose 97 Inpatient E&M: 50214 Disch Hosp
--- NOTE | 2020-09-20 11:55 | PHA.DC.MR ---
Pharmacy Service has performed discharge medication reconciliation for this patient. The patient's discharge medication list was reviewed for discrepancies and discrepancies were resolved. Home Medications Cholecalciferol (VIT D3) [Vitamin D3] 1,000 unit PO DAILY 06/27/19 Vitamin B Complex 1 ea PO QHS 06/27/19 Vitamin E 400 unit PO DAILY 10/22/19 alprazolam 0.5 mg tablet 0.5 mg PO BID tab 01/21/20 Amlodipine Besylate 2.5 mg PO DAILY 07/26/20 Metoprolol Succinate 150 mg PO DAILY 07/26/20 Rosuvastatin Calcium 20 mg PO QHS 07/26/20 warfarin 3 mg tablet 3 mg PO QHS #30 tab 09/13/20 Oxycodone [Oxyir] 5 mg PO Q4H PRN PRN 3 Days #18 tab 09/20/20
[2020-09-20 12:50] VITALS: BP 132/59; PULSE 61; RESP 16; O2SAT 93
[2020-09-20 12:53] VITALS: PULSE 60
[2020-09-20] MEDS: Metoprolol(XL)Succ 50 MG Tablet 150 MG PO (12:53)
--- NOTE | 2020-09-20 13:06 | ONC.CONS.INP ---
Subjective Date of Service:: 09/20/20 Chief Complaint: Adenocarcinoma involving the left lung History of Present Illness: Ms. Claire Church is a very pleasant 74 year old woman with a PMH significant for DM, HTN, CKD, arrhythmia, and anemia of chronic disease who presented to [facility] ED on 08/06/20 with complaints of abd pain. CT A/P without contrast at that time demonstrated lower lobe pulmonary nodules, severe coronary artery disease and severe cirrhosis. This prompted dedicated CT chest per her pcp. CT chest obtained 08/10/2020 confirmed the presence of 4 distinct nodules: #1 medial posterior aspect left upper lobe measures 1.8 cm x 0.9 cm, spiculated and irregular#2 anterior medial aspect of left upper lobe measures 0.4 cm noncalcified, #3 posterior medial aspect of left lower lobe 0.6 cm and #4 posterior right lower lobe measures 0.4 cm, noncalcified. Patient was referred to pulmonology, Dr. Romero. She underwent CT guided biopsy of left lower lobe nodule on 09/18/19. She developed hemoptysis subsequent to the biopsy, presented to [facility] ED on 09/18/2020 and was admitted initially for observation. Pathology has confirmed a non-small cell carcinoma, favors adenocarcinoma subtype. Upon entering the room patient is sitting upright in bed with a sister at the bedside. Reports hemoptysis is better indicating she is only produced a small amount of dark brown sputum today describes as old blood. 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) Brain lesion (Chronic) Glaucoma (Chronic) Bilateral carotid artery stenosis (Chronic) Ectopic atrial rhythm (Chronic) History of CVA (cerebrovascular accident) (Chronic 06/02/20) Small left lentiform nucleus acute infarct Left carotid artery stenosis (Chronic) Deep vein thrombosis of right lower extremity (Chronic 05/19/20) Essential (primary) hypertension (Chronic) Hyperlipidemia (Chronic) Nicotine dependence (Chronic) Type 2 diabetes mellitus (Chronic) Stage III chronic kidney disease (Chronic) Past Medical/Surgical History: Past Medical History - Most Recent Inpatient Visit Past Medical History Start: 09/18/20 16:46 Text: Status: Complete Freq: ONCE Protocol: Document 09/18/20 17:19 AEC (Rec: 09/18/20 17:27 AEC [id number]) BMI Required to complete PMH What is Patient's BMI 20.2 Neurologic Medical History Hx Stroke/TIA Yes: apr- left vocal chord paralized Hx Dementia/Alzheimer's No Hx Parkinson's Disease No Hx Seizures No Hx Multiple Sclerosis No Hx Migraines No Comments transient tremors to head- takes xanax for this Cardiac Medical History VTE Present on Admission No Hx of Deep Vein Thrombosis/VTE/PE Yes: right leg- Hx Hypertension Yes: states controlled with med Hx Chest Pain/Angina No Hx Heart Attack No Hx Cardiac Surgery/Stents/Etc. No Hx Heart Failure No Hx Pacemaker/AICD No Hx Irregular Heartbeat and/or Afib Yes: [facility] Dr Byrnes 12/2019 Hx Anticoagulant Therapy Yes: coumadin Query Text:(Coumadin, Aspirin, Plavix, Xarelto, etc.) Hx Pain in Legs when Walking/Leg Cramps Yes: rt leg cramps Respiratory Medical History Hx COPD Yes Hx Emphysema No Hx Smoking Yes: 1/2 ppd x 60 yrs Smoking Status Current every day smoker Hx Tobacco Use in last 12 months Yes Sent to [facility] Yes Hx Sleep Apnea No Do you snore loudly (louder than talking No or can be heard through closed doors)? Do you often feel tired/ fatigued/ No sleepy during daytime? Has anyone observed you stop breathing No during sleep? STOP Results Negative GI Medical History Hx Ulcer Yes Hx Hepatitis No Hx Cirrhosis Yes: pre cirrhosis Hx GI Bleed Yes: AVM per hx Hx Unplanned Weight Loss Yes: 30# last 8 months Genitourinary Medical History Indwelling Catheter in Place on Arrival/ No Admission Hx Renal Disease Yes: ckd stage 3 Hx Dialysis No Musculoskeletal History Hx Arthritis Yes Hx Rheumatoid Arthritis No Endocrine Medical History Hx Diabetes Yes: bs 109 Hx Thyroid Disease No Hematologic Medical History Hx of Blood Transfusion Yes Hx of Transfusion in last 3 Months No Ever experience any problems with Yes transfusion(s)? Specify any problems they had to slow it down- this was 5 years ago Hx of Preganancy in last 3 Months No Nurse Filling Out Transfusion & ACOEY Questions: Date: 09/18/20 Time: 17:25 Psycho/Social Medical History Hx Depression Yes: oh found out about her having lung ca Hx Anxiety Yes Hx Behavior Disorder No Hx Alcohol Use No Hx Substance Use No Other Medical History Hx Blood Disorders Yes: MGUS per hx Hx Anemia Yes: iron infusions Hx Cancer No: working on dx- was told she had lung ca Hx Drug Resistant Organism No Wound/Pressure Injury Present on Arrival No /Admission Query Text:If yes, chart assessment in Shift/Clinical Findings Central Line/PICC/VAD Present on Arrival No /Admission Antibiotics within last 7 days? 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) Anemia (Chronic) CKD (chronic kidney disease) (Chronic) Tremor (Chronic) Type 2 diabetes mellitus (Chronic) Cataract (Chronic) 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) Brain lesion (Chronic) Glaucoma (Chronic) Bilateral carotid artery stenosis (Chronic) Traumatic hematoma of right foot (Resolved) Cellulitis of right foot (Resolved) Retinal hemorrhage (Resolved) Ectopic atrial rhythm (Chronic) History of CVA (cerebrovascular accident) (Chronic 06/02/20) Left carotid artery stenosis (Chronic) Deep vein thrombosis of right lower extremity (Chronic 05/19/20) Essential (primary) hypertension (Chronic) Hyperlipidemia (Chronic) Nicotine dependence (Chronic) Type 2 diabetes mellitus (Chronic) Stage III chronic kidney disease (Chronic) Peptic ulcer (Chronic) Past Surgical History (Last Reviewed 09/07/20 @ 14:26 by Jessica Bartlett) History of incision and drainage (Resolved 03/2020) History of bilateral cataract extraction (Acute) History of bone marrow biopsy (Acute) History of colonoscopy (Acute) History of endoscopy (Acute) H/O total hysterectomy (Resolved) History of laminectomy (Resolved) History of tonsillectomy (Resolved) Maternal Family History: Family History (Last Reviewed 09/18/20 @ 16:41 by Luis A GUZMAN, PA) Father Hypertension Cancer Heart disease Sister Kidney disease Diabetes Mother Asthma Family History: No pertinent history Paternal Family History: Family History (Last Reviewed 09/18/20 @ 16:41 by Luis A GUZMAN, PA) Father Hypertension Cancer Heart disease Sister Kidney disease Diabetes Mother Asthma Family History: No pertinent history - Social History Smoking Status: Current every day smoker Allergies/Adverse Reactions: Allergy/AdvReac Type Severity Reaction Status Date / Time bee venom protein (honey bee) Allergy Rash Verified 09/18/20 13:10 fluconazole Allergy heart Verified 09/18/20 13:10 racing Iodine and Iodide Containing Allergy Unknown Verified 09/18/20 13:10 Produc lisinopril Allergy Rash Verified 09/18/20 13:10 Penicillins Allergy Unknown Verified 09/18/20 13:10 shellfish derived Allergy Other Verified 09/18/20 13:10 sodium chloride for Allergy PT UNSURE Verified 09/18/20 13:10 inhalation OF REACTION [From Saline] ciprofloxacin [From Cipro] AdvReac Diarrhea Verified 09/18/20 13:10 clindamycin AdvReac Diarrhea Verified 09/18/20 13:10 glimepiride AdvReac Other Verified 09/18/20 13:10 Sulfa (Sulfonamide AdvReac Diarrhea Verified 09/18/20 13:10 Antibiotics) Review of Systems Constitutional:: Reports: Weakness, Fatigue, Weight loss - estimates 20 lbs in the last 6 months. Denies: Fever, Sweats, Appetite change, Chills Cardiovascular:: Reports: Dyspnea on exertion. Denies: Chest pain, Palpitations, Orthopnea, PND Respiratory: Reports: Cough, Hemoptysis, Pleuritic Pain, Shortness of Breath, Wheezing Gastrointestinal:: Denies: Abdominal pain, Nausea, Vomiting, Diarrhea, Constipation, Melena, Hematochezia Musculoskeletal:: Reports: Back pain. Denies: Myalgia, Arthralgia Skin: Denies: Rash, Skin Changes, Wounds Neurological:: Reports: Headache - limited to 2 episodes during this admission, otherwise denies headaches, Numbness, Tingling - involving feet bilat secondary to diabetic neuropathy, Muscle weakness. Denies: Dizziness Psychiatric: Denies: Anxiety, Depression, Suicidal Ideations Vital Signs Temperature 97.7 F L 09/20/20 09:20 Temperature Source Oral 09/20/20 09:20 Pulse Rate 60 09/20/20 12:53 Pulse Strength Normal (2+) 09/20/20 08:00 Respiratory Rate 20 H 09/20/20 09:20 Respiratory Effort Non-Labored 09/20/20 09:20 Respiratory Depth Normal 09/20/20 02:44 Respiratory Pattern Normal 09/20/20 02:44 Blood Pressure 134/55 H 09/20/20 09:20 Blood Pressure Mean 81 09/20/20 09:20 Blood Pressure Source Monitor 09/20/20 09:20 Blood Pressure Position Semi-Fowlers 09/20/20 09:20 Blood Pressure Location Left Arm 09/20/20 09:20 Pulse Ox 97 09/20/20 09:20 Oxygen Delivery Method Room Air 09/20/20 09:20 Oxygen Flow Rate (L/min) 2 09/19/20 07:48 - Physical Exam General: Alert, Oriented x3, No apparent distress HEENT: Atraumatic, PERRLA, EOMI, Normocephalic Oropharynx:: Negative for: Dry mucosa Neck:: Supple, Trachea midline. Negative for: JVD, bilateral Cardiac:: Regular rate, Regular rhythm, Normal S1, Normal S2. Negative for: Murmur Lungs: Diminished, Excusion symmetrical, - - conversationally dyspneic. Negative for: Rhonchi, Wheezes Abdomen:: Bowel sounds x 4, Soft, Non-tender, Non-distended. Negative for: Hepatosplenomegaly Extremities:: - - wearing support stockings. Negative for: Cyanosis, Edema Neurological: Neuro grossly intact Skin:: Negative for: Lesions, Rash, Petechiae, Ecchymosis Psychiatric:: Appropriate affect, Euthymic Lymphatics:: Negative for: Cervical lymphadenopathy, Supraclavicular lymphadenopathy Laboratory Data: Laboratory Tests 09/20/20 09/19/20 Range/Units 07:29 21:25 POC Glucose 97 97 (70-110) mg/dL Diagnostic Data: Diagnostic Data Chest CTA 09/18/20 14:11 IMPRESSION: Status post biopsy of a nodule in the left lower lobe with resultant hemorrhage surrounding the nodular density with a small left pleural effusion. The previously seen nodule in the posterior medial segment of the right lower lobe is not seen at this time. Increased size of the nodule seen in the posterior aspect of the left upper lobe. Electronically Signed: Kamlesh Rhodes MD at 15:36 EST , Service support , Chest X-Ray 09/19/20 08:00 IMPRESSION: Increased markings at the left lung base suggestive of left basilar atelectasis. There is blunting of the left costophrenic angle. Electronically Signed: Kamlesh Rhodes MD at 8:46 EST , Service support , Assessment and Plan 74 year old woman with Multiple co morbidities diagnosed with a non small cell lung cancer, adeno carcinoma subtype of the left lower lobe. Patient exhibits several other including one contralateral pulmonary nodule. 1. Non-small cell carcinoma ?With the patient, I reviewed pathology report from CT-guided biopsy of left lower lobe nodule which confirmed he presence of malignancy. Discussed the need for initial staging studies by way of PET/CT and potentially molecular testing. Patient is amenable to discussing further studies in the out patient setting. Provided new patient consultation with Dr. Mckinney on 09/26/20. Emotional support provided. Sylvia Crockett, MSN, HEDIS NURSE, AOCNP Medications: Prescriptions This Visit Medication Instructions Recorded Oxycodone [Oxyir] 5 mg PO Q4H PRN PRN 3 Days #18 tab 09/20/20 Primary Care Provider: Dr. Komal Novoa MD Referring Provider: - Problem List (1) Adenocarcinoma Status: Acute
--- NOTE | 2020-09-21 14:31 | CASEMGMT ---
RAJINDER FERNÁNDEZ Discharge Follow-Up Phone Call. Lu: 13 Strata: 3 Discharge Date: 09/20/20 Adm Dx: Hypoxia. Call to pt to inquire about how she has been doing since being discharged from the hospital. Pt states she is doing okay, but states she did cough of some new blood this morning. She states she had resumed her Coumadin last evening. She states she contacted her PCP today and he is having her hold her Coumadin for the next 3 days and is to resume it on Friday. She is then to have an INR done 4 days later. She states she has also placed a call to Dr Romero's office earlier today to notify them and she is awaiting a call back. She has not noticed any further blood since this AM. She has an appt scheduled w/oncology on 09/25 @ 1030 and her next appt with Dr Romero is scheduled in October. She was made aware, per discharge instructions, she is to make an appt with Dr Romero in 2 weeks. She states she was not aware of this and plans to f/u after her appt with oncology. She has an appt scheduled w/Dr Novoa next month. She has not picked up the new rx for Oxycodone yet, but states, I haven't needed it, but states she plans on getting it later today or tomorrow. She denies having any needs or further concerns at this time. While RAJINDER FERNÁNDEZ talking w/pt on the phone and getting ready to end the conversation, pt stated she was receiving a call from pulmonology and pt got off of the phone to take the call. James FLANNERY RN, CM
== END 2020-09-20 13:45 | disposition home or self-care (01) | DRG 920 ==
LOC: ED 16:05 → MS3 16:56
PROVIDERS: Admitting Provider Internal Medicine; Emergency Provider Emergency Medicine; PCP Internal Medicine; Visit Provider Student in an Organized Health Care Education/Training Program
DX: J95.830 Postprocedural hemorrhage of a respiratory system organ or structure following a respiratory system procedure (principal); E44.0 Moderate protein-calorie malnutrition; C34.32 Malignant neoplasm of lower lobe, left bronchus or lung; R04.2 Hemoptysis; R09.02 Hypoxemia; R06.89 Other abnormalities of breathing; Z79.01 Long term (current) use of anticoagulants; E11.22 Type 2 diabetes mellitus with diabetic chronic kidney disease; N18.31 Chronic kidney disease, stage 3a; Z68.21 Body mass index [BMI] 21.0-21.9, adult; Z86.718 Personal history of other venous thrombosis and embolism; F41.9 Anxiety disorder, unspecified; I12.9 Hypertensive chronic kidney disease with stage 1 through stage 4 chronic kidney disease, or unspecified chronic kidney disease; J44.9 Chronic obstructive pulmonary disease, unspecified; F17.210 Nicotine dependence, cigarettes, uncomplicated; Z66 Do not resuscitate; D69.6 Thrombocytopenia, unspecified; D50.0 Iron deficiency anemia secondary to blood loss (chronic); D63.1 Anemia in chronic kidney disease
CPT/HCPCS: 71045; 71046; 71275; 77012; 80048; 82962; 84484; 85025; 85610; 88172; 88305; 88313; 88341; 88342; 93005; 93971; 94640; 97802; 99251; 99284; 99406; J7030; J7120; Q9967; A4216; G0463

== ENCOUNTER 2020-10-11 07:08 | Outpatient (RCR) | payer MEDICARE, OTHER, SELFPAY ==
[2020-09-21 08:45] VITALS: BMI 18.8
[2020-09-26 10:26] VITALS: BMI 20.4
[2020-09-27 08:31] LABS: International Normalized Ratio 1.2; Prothrombin Time (Protime)PT. 14.2 SECONDS (11.7-14.9)
[2020-10-04 09:07] LABS: International Normalized Ratio 1.4; Prothrombin Time (Protime)PT. 16.4 SECONDS (11.7-14.9)
[2020-10-11 08:15] LABS: International Normalized Ratio 1.7; Prothrombin Time (Protime)PT. 19.5 SECONDS (11.7-14.9)
== END 2020-10-11 18:00 | disposition home or self-care (01) ==
LOC: LAB 07:08
PROVIDERS: PCP Internal Medicine; Referring Provider Internal Medicine; Visit Provider Internal Medicine
DX: I82.401 Acute embolism and thrombosis of unspecified deep veins of right lower extremity (principal); E11.21 Type 2 diabetes mellitus with diabetic nephropathy; E11.22 Type 2 diabetes mellitus with diabetic chronic kidney disease; N18.31 Chronic kidney disease, stage 3a
CPT/HCPCS: 36415; 85610

== ENCOUNTER 2020-11-15 06:57 | Outpatient (RCR) | payer MEDICARE, OTHER, SELFPAY ==
[2020-10-25 08:25] LABS: International Normalized Ratio 1.9; Prothrombin Time (Protime)PT. 20.9 SECONDS (11.7-14.9)
[2020-11-15 08:16] LABS: International Normalized Ratio 1.4; Prothrombin Time (Protime)PT. 16.7 SECONDS (11.7-14.9)
== END 2020-11-15 18:00 | disposition home or self-care (01) ==
LOC: LAB 06:57
PROVIDERS: PCP Internal Medicine; Referring Provider Internal Medicine; Visit Provider Internal Medicine
DX: I82.401 Acute embolism and thrombosis of unspecified deep veins of right lower extremity (principal); E11.21 Type 2 diabetes mellitus with diabetic nephropathy; E11.22 Type 2 diabetes mellitus with diabetic chronic kidney disease; N18.31 Chronic kidney disease, stage 3a
CPT/HCPCS: 36415; 85610

== ENCOUNTER 2020-12-13 06:18 | Outpatient (RCR) | payer MEDICARE, OTHER, SELFPAY ==
[2020-11-22 09:34] VITALS: BMI 20.4
[2020-11-29 07:06] LABS: Absolute Lymphocyte Count 2.12 X10^3/uL (0.83-4.51); Absolute Neutrophil Count 2.7 X10^3/uL (2.0-7.7); Basophil# 0.04 X10^3/uL; Basophil% 0.7 % (0-1); Eosinophil# 0.03 X10^3/uL; Eosinophils% 0.6 % (0-5); Hematocrit 39.3 % (37-47); Hemoglobin 12.1 g/dL (12.0-15.0); Lymphocyte # 2.12 X10^3/ul (4.0); Lymphocyte % 39.3 % (19-41); Mean Corp Hgb Conc 30.8 g/dL (32-36); Mean Corpuscular Hgb 27.5 pg (27.0-32.0); Mean Corpuscular Volume 89.3 fL (81-99); Monocyte# 0.47 X10^3/uL; Monocyte% 8.7 % (0-10); NRBC Flagged by Analyzer 0 % (0-5); Neutrophil # 2.72 X10^3/uL (2.7-7.7); Neutrophil % 50.5 % (47-70); Platelet Count 178 K/mm3 (150-450); RBC Distribution Width CV 13.4 % (11.6-14.6); RBC Distribution Width SD 44.3 fl (35.1-43.9); White Blood Count 5.4 K/mm3 (4.4-11.0)
[2020-11-29 07:34] LABS: International Normalized Ratio 1.4; Prothrombin Time (Protime)PT. 16.1 SECONDS (11.7-14.9)
[2020-11-29 07:41] LABS: ALB/GLOB Ratio 0.8 RATIO (0.9-2.4); AST(SGOT) 24 U/L (15-37); Alanine Aminotransfer ALT/SGPT 41 U/L (13-56); Albumin, Serum 3.1 g/dL (3.2-5.0); Alkaline Phosphatase 127 U/L (45-117); Anion Gap 5 (5-15); BUN 42 mg/dL (7-18); BUN/Creat Ratio 44.8 RATIO (10-20); Calcium,Total 9.2 mg/dL (8.5-10.1); Chloride 107 mmol/L (98-107); Creatinine, Serum 0.94 mg/dL (0.55-1.02); EST Glomerular Filtration Rate 62 mL/min (>60); Est Glom Filt Rate - Afr Amer 75 mL/min (>60); Glucose 85 mg/dL (74-106); Potassium 3.9 mmol/L (3.5-5.1); Protein, Total 7.1 g/dL (6.4-8.2); Sodium Level 138 mmol/L (136-145); Thyroid Stim Hormone (TSH) 2.02 uIU/mL (0.358-3.74)
[2020-11-29 08:09] LABS: Vitamin D,25 Hydroxy 56.3 ng/mL
[2020-11-29 08:15] LABS: Hemoglobin A1c 5.7 % (3.8-5.6)
[2020-12-13 08:04] LABS: International Normalized Ratio 1.7; Prothrombin Time (Protime)PT. 19.1 SECONDS (11.7-14.9)
== END 2020-12-13 18:00 | disposition home or self-care (01) ==
LOC: LAB 06:18
PROVIDERS: PCP Internal Medicine; Referring Provider Internal Medicine; Visit Provider Internal Medicine
DX: I82.401 Acute embolism and thrombosis of unspecified deep veins of right lower extremity (principal); E11.21 Type 2 diabetes mellitus with diabetic nephropathy; E11.22 Type 2 diabetes mellitus with diabetic chronic kidney disease; N18.31 Chronic kidney disease, stage 3a
CPT/HCPCS: 36415; 80053; 82306; 83036; 84443; 85025; 85610

== ENCOUNTER 2021-01-03 06:24 | Outpatient (RCR) | payer MEDICARE, OTHER, SELFPAY ==
[2020-12-20 10:06] VITALS: BMI 20.4
[2021-01-03 06:54] LABS: International Normalized Ratio 1.5; Prothrombin Time (Protime)PT. 17.5 SECONDS (11.7-14.9)
== END 2021-01-12 18:00 | disposition home or self-care (01) ==
LOC: LAB 06:24
PROVIDERS: PCP Internal Medicine; Referring Provider Internal Medicine; Visit Provider Internal Medicine
DX: I82.401 Acute embolism and thrombosis of unspecified deep veins of right lower extremity (principal); E11.21 Type 2 diabetes mellitus with diabetic nephropathy; E11.22 Type 2 diabetes mellitus with diabetic chronic kidney disease; N18.31 Chronic kidney disease, stage 3a
CPT/HCPCS: 85610

== ENCOUNTER 2021-02-13 11:27 | Outpatient (RCR) | payer MEDICARE, OTHER, SELFPAY ==
[2021-01-18 09:08] VITALS: BMI 20.4
[2021-01-31 07:16] LABS: International Normalized Ratio 1.6
[2021-02-13 12:36] LABS: International Normalized Ratio 1.7; Prothrombin Time (Protime)PT. 19.3 SECONDS (11.7-14.9)
== END 2021-02-13 18:00 | disposition home or self-care (01) ==
LOC: LAB 11:27
PROVIDERS: PCP Internal Medicine; Referring Provider Internal Medicine; Visit Provider Internal Medicine
DX: I82.401 Acute embolism and thrombosis of unspecified deep veins of right lower extremity (principal); E11.21 Type 2 diabetes mellitus with diabetic nephropathy; E11.22 Type 2 diabetes mellitus with diabetic chronic kidney disease; N18.31 Chronic kidney disease, stage 3a
CPT/HCPCS: 36415; 85610

== ENCOUNTER 2021-02-23 16:46 | Emergency (ER) | payer MEDICARE, OTHER, SELFPAY ==
[2021-01-18 09:08] VITALS: BMI 20.4
[2021-02-23 16:48] VITALS: BP 146/72; PULSE 86; RESP 18; TEMP 36.1; O2SAT 93; BMI 20.2
[2021-02-23 17:50] VITALS: BP 146/72; PULSE 86; RESP 18; TEMP 36.1; O2SAT 93
--- NOTE | 2021-02-23 17:54 | EX.ED.DYSGE1 ---
HPI History of Present Illness Chief Complaint: Cough Informant: patient Onset/Context/Timing Onset: Yesterday Context: Gradual Onset Timing: Continuous Quality: Blood-streaked Location: Chest Worsened by: Nothing Relieved by: Nothing Narrative Narrative: Patient presents with hemoptysis that began yesterday. Patient states it is slightly more than blood-streaked sputum. Patient decision states it is not even half a teaspoon. Patient states she has a history of lung cancer. Patient states that she was told she only had 6 months to live back in September. Patient denies any fevers or chills. Patient is on Coumadin. Patient states her last INR was 1.8 and her Coumadin was adjusted recently. Patient admits to some mild shortness of breath. Patient denies any chest pain. [facility] Medical History (Updated 02/23/21 @ 20:[address] Oral Perez, ) Acute respiratory insufficiency Anemia AVM (arteriovenous malformation) of colon with hemorrhage Bilateral carotid artery stenosis Brain lesion Cataract Cellulitis of right foot CKD (chronic kidney disease) Deep vein thrombosis of right lower extremity (05/19/20) Ectopic atrial rhythm Essential (primary) hypertension Glaucoma History of CVA (cerebrovascular accident) (06/02/20) Hyperlipidemia Hypoxia long-term current use of anticoagulant therapy MGUS (monoclonal gammopathy of unknown significance) Nicotine dependence Ovarian cyst Paralyzed vocal cords Peptic ulcer Pulmonary hemorrhage Retinal hemorrhage Stage III chronic kidney disease Traumatic hematoma of right foot Tremor Type 2 diabetes mellitus Type 2 diabetes mellitus Home Medications cholecalciferol (vitamin D3) 1,000 unit PO DAILY 06/27/19 [History Last Taken 09/18/20 06:30] vitamin B complex 1 ea PO QHS 06/27/19 [History Last Taken 09/17/20 22:00] vitamin E 400 unit PO DAILY 10/22/19 [History Last Taken 09/18/20 06:30] metoprolol succinate 50 mg tablet,extended release 24 hr 100 mg PO DAILY tab 09/27/20 [History Last Taken Unknown] alprazolam 0.5 mg tablet 2 mg PO TID PRN tab 12/20/20 [History Last Taken Unknown] warfarin 3 mg PO TUTH 02/23/21 [History Last Taken Unknown] warfarin 4 mg PO SUMOWEFRSA 02/23/21 [History Last Taken Unknown] Allergy/AdvReac Type Severity Reaction Status Date / Time bee venom protein (honey bee) Allergy Rash Verified 02/23/21 16:48 fluconazole Allergy heart Verified 02/23/21 16:48 racing Iodine and Iodide Containing Allergy Unknown Verified 02/23/21 16:48 Produc lisinopril Allergy Rash Verified 02/23/21 16:48 Penicillins Allergy Unknown Verified 02/23/21 16:48 shellfish derived Allergy Other Verified 02/23/21 16:48 sodium chloride for Allergy PT UNSURE Verified 02/23/21 16:48 inhalation OF REACTION [From Saline] ciprofloxacin [From Cipro] AdvReac Diarrhea Verified 02/23/21 16:48 clindamycin AdvReac Diarrhea Verified 02/23/21 16:48 glimepiride AdvReac Other Verified 02/23/21 16:48 Sulfa (Sulfonamide AdvReac Diarrhea Verified 02/23/21 16:48 Antibiotics) Family History Father Hypertension Cancer lung Heart disease Sister Kidney disease Diabetes Mother Asthma Surgical History H/O total hysterectomy History of bilateral cataract extraction History of bone marrow biopsy History of colonoscopy History of endoscopy History of incision and drainage (03/2020) History of laminectomy History of lung biopsy History of tonsillectomy vocal cord injection (07/2020) Social History Smoking Status: Current every day smoker tobacco type: cigarettes Tobacco: How many years used: 60 alcohol intake: former year quit: 2017 substance use type: does not use ROS ROS ED Constitutional Constitutional ED: Denies chills or fever(s) Eyes Eyes: Reports blurry vision ENT ENT ED: Reports rhinorrhea; Denies sore throat Cardiovascular Cardiovascular: Denies chest pain or palpitations Respiratory/Chest Respiratory/Chest: Reports cough and dyspnea Gastrointestinal Gastrointestinal: Denies nausea or vomiting Genitourinary Genitourinary ED: Denies dysuria or hematuria Musculoskeletal Musculoskeletal: Reports back pain; Denies neck pain Integumentary Denies abscess or rash Neurologic Neurologic: Denies headache(s) or weakness Hematologic/Lymphatic Hematologic/Lymphatic: Reports easy bleeding and easy bruising Allergic/Immunologic Allergic/Immunologic ED: Denies mouth swelling or urticaria EXAM Physical Exam Const Vital Signs: 02/23/21 16:48 02/23/21 17:50 02/23/21 18:13 Temperature 96.9 F L 96.9 F L Temperature Source Temporal Temporal Pulse Rate 86 86 Respiratory Rate 18 18 Respiratory Effort Non-Labored Respiratory Pattern Normal Blood Pressure 146/72 H 146/72 H Blood Pressure Mean 96 96 Pulse Ox 93 93 Oxygen Delivery Method Room Air Room Air Room Air 02/23/21 19:14 Temperature 97.5 F L Temperature Source Temporal Pulse Rate 78 Respiratory Rate 18 Respiratory Effort Respiratory Pattern Blood Pressure 159/67 H Blood Pressure Mean 97 Pulse Ox 97 Oxygen Delivery Method Room Air Positive well nourished and well developed General Appearance ED: well developed HEENT Reports moist mucous membranes Neck supple and no JVD Resp normal respiratory effort and clear to auscultation bilaterally Cardio regular rate, regular rhythm and no murmurs GI normal to inspection, nondistended, normoactive bowel sounds and non-tender Palpation: soft Extremity normal to inspection General Extremety ED: Negative for edema or tenderness General Extremity: Negative for edema Neuro oriented x3, CN's II-XII intact bilaterally and no sensory deficits noted Sensorium / Orientation: alert Motor Exam: strength 5/5 throughout Psych mental status grossly normal Skin no rashes or lesions noted MDM MDM MDM Narrative Medical decision making narrative: CBC was within normal limits. PT with INR was slightly subtherapeutic at 1.8. Basic metabolic profile was essentially within normal limits. PA lateral chest x-ray was obtained. There are 2 views. On my interpretation, there is no acute infiltrate. There is no effusion. Bony thorax is normal. There is no acute cardiopulmonary process noted. Radiologist also interpreted the x-rays and agrees. Patient was advised of her findings. Patient wants to go home. Patient was instructed to continue to monitor for worsening hemoptysis. Patient was instructed to follow-up with her primary care physician in 5 to 7 days. Patient was instructed to continue her Coumadin as prescribed. Patient understood and was agreeable with the plan. All questions were answered. Lab Data Labs: Laboratory Results - last 24 hr 02/23/21 02/23/21 02/23/21 18:09 18:09 18:09 WBC 6.0 RBC 4.33 Hgb 12.2 Hct 38.9 MCV 89.8 MCH 28.2 MCHC 31.4 L RDW Std Deviation 46.5 H RDW Coeff of Violet 14.1 Plt Count 166 MPV 10.7 Immature Gran % (Auto) 0.300 Neut % (Auto) 62.4 Lymph % (Auto) 25.8 [place] % (Auto) 10.5 H Eos % (Auto) 0.5 Baso % (Auto) 0.5 Absolute Neuts (auto) 3.8 Absolute Lymphs (auto) 1.55 Nucleated RBC % 0 PT 19.9 H INR 1.8 Sodium 142 Potassium 3.9 Chloride 107 Carbon Dioxide 29.0 Anion Gap 6 BUN 43 H Creatinine 1.13 H Estim Creat Clear Calc 36.82 Est GFR (MDRD) Af Amer 61 Est GFR (MDRD) Non-Af 50 L BUN/Creatinine Ratio 38.1 H Glucose 116 H Calcium 8.9 Radiography Diagnostic Testing: Radiology Impression Chest X-Ray 02/23/21 18:18 IMPRESSION: 1. No acute findings. 2. Refer to CT chest with IV contrast for reevaluation of possible underlying focal/neoplastic disease in the left lower lobe. Electronically Signed: Alia Myers MD at 19:03 EDT Tel , Service support , Discharge Plan Triage Chief Complaint: Cough ED Provider: Oral Perez Dx/Rx/DC Orders Clinical Impression: Cough with hemoptysis, Cancer of left lung Instructions: ED Hemoptysis Prescriptions: No Action alprazolam 0.5 mg tablet 2 mg PO TID PRN (Reason: anxiety) RF: 0 vitamin B complex 1 EACH capsule 1 ea PO QHS RF: 0 cholecalciferol (vitamin D3) 1,000 UNIT tablet 1,000 unit PO DAILY RF: 0 vitamin E 400 UNIT capsule 400 unit PO DAILY RF: 0 metoprolol succinate 50 mg tablet extended release 24 hr 100 mg PO DAILY RF: 0 warfarin 3 mg tablet 3 mg PO TUTH RF: 0 warfarin 1 mg tablet 4 mg PO SUMOWEFRSA RF: 0 Primary Care Provider: Komal Novoa Referrals: Komal Nvooa MD [Primary Care Provider] - 3-5 Days Disposition Disposition: Home, Self Care
--- NOTE | 2021-02-23 18:11 | ED.RN ---
Pt refuses IV
--- NOTE | 2021-02-23 18:18 | RAD_ITS ---
STUDY: X-RAY CHEST REASON FOR EXAM: Female, 75 years old. Hemoptysis chronic cough shortness of breath from cancer TECHNIQUE: Frontal and lateral views of the chest COMPARISON: 16 February 2021 FINDINGS: The patient has previously CT imaged left lower lobe disease which is not well seen on the current scan. However, there is volume loss in the left hemithorax with elevation of the left hemidiaphragm. Right lung is clear. There is no pneumothorax, pneumonia megaly, pulmonary edema or pleural effusions. There is a small nodular-like opacity in the right midlung, possibly soft tissue summation such as 2 ribs. This is incompletely evaluated. RAD/Chest PA and Lateral IMPRESSION: 1. No acute findings. 2. Refer to CT chest with IV contrast for reevaluation of possible underlying focal/neoplastic disease in the left lower lobe. Electronically Signed: Alia Myers MD at 19:03 EDT Tel , Service support ,
[2021-02-23 18:20] LABS: Absolute Lymphocyte Count 1.55 X10^3/uL (0.83-4.51); Absolute Neutrophil Count 3.8 X10^3/uL (2.0-7.7); Basophil# 0.03 X10^3/uL; Basophil% 0.5 % (0-1); Eosinophil# 0.03 X10^3/uL; Eosinophils% 0.5 % (0-5); Hematocrit 38.9 % (37-47); Hemoglobin 12.2 g/dL (12.0-15.0); Lymphocyte # 1.55 X10^3/ul (0.83-4.51); Lymphocyte % 25.8 % (19-41); Mean Corp Hgb Conc 31.4 g/dL (32-36); Mean Corpuscular Hgb 28.2 pg (27.0-32.0); Mean Corpuscular Volume 89.8 fL (81-99); Mean Platelet Vol. 10.7 fl (6.2-12.0); Monocyte# 0.63 X10^3/uL; Monocyte% 10.5 % (0-10); NRBC Flagged by Analyzer 0 % (0-5); Neutrophil # 3.75 X10^3/uL (2.7-7.7); Neutrophil % 62.4 % (47-70); Platelet Count 166 K/mm3 (150-450); RBC Distribution Width CV 14.1 % (11.6-14.6); RBC Distribution Width SD 46.5 fl (35.1-43.9); Red Blood Count 4.33 M/mm3 (4.2-5.4)
[2021-02-23 18:33] LABS: Anion Gap 6 (5-15); BUN 43 mg/dL (7-18); BUN/Creat Ratio 38.1 RATIO (10-20); Calcium,Total 8.9 mg/dL (8.5-10.1); Chloride 107 mmol/L (98-107); Creatinine, Serum 1.13 mg/dL (0.55-1.02); EST Glomerular Filtration Rate 50 mL/min (>60); Est Glom Filt Rate - Afr Amer 61 mL/min (>60); Estimated Creatinine Clearance 36.82 ml/min; Glucose 116 mg/dL (74-106); Potassium 3.9 mmol/L (3.5-5.1); Sodium Level 142 mmol/L (136-145)
[2021-02-23 18:38] LABS: International Normalized Ratio 1.8; Prothrombin Time (Protime)PT. 19.9 SECONDS (11.7-14.9)
[2021-02-23 19:14] VITALS: BP 159/67; PULSE 78; RESP 18; TEMP 36.4; O2SAT 97
== END 2021-02-23 20:12 | disposition home or self-care (01) ==
PROVIDERS: Emergency Provider Emergency Medicine; PCP Internal Medicine
DX: R04.2 Hemoptysis (principal); C34.92 Malignant neoplasm of unspecified part of left bronchus or lung; I12.9 Hypertensive chronic kidney disease with stage 1 through stage 4 chronic kidney disease, or unspecified chronic kidney disease; N18.9 Chronic kidney disease, unspecified; E11.22 Type 2 diabetes mellitus with diabetic chronic kidney disease; E78.5 Hyperlipidemia, unspecified; F17.210 Nicotine dependence, cigarettes, uncomplicated; Z86.718 Personal history of other venous thrombosis and embolism; Z86.73 Personal history of transient ischemic attack (TIA), and cerebral infarction without residual deficits; Z79.01 Long term (current) use of anticoagulants; Z79.899 Other long term (current) drug therapy
CPT/HCPCS: 71046; 80048; 85025; 85610; 99282

== ENCOUNTER → 2021-03-07 06:40 | Outpatient (CLI) | payer MEDICARE, OTHER, SELFPAY ==
[2020-10-25 10:02] VITALS: BMI 19.9
[2021-02-23 16:48] VITALS: BMI 20.2
--- NOTE | 2021-03-07 06:47 | CT_ITS ---
STUDY: CT CHEST WITHOUT CONTRAST REASON FOR EXAM: Female, 75 years old. Follow up lung cancer, left lung, metastatic nodule. Hemoptysis. Patient smokes half a pack of cigarettes per day for 58 years. Paralyzed vocal cord. RADIATION DOSAGE (If Supplied By Facility): CTDIvol = ( 6.22 ) mGy, DLP = ( 222.18 ) mGycm TECHNIQUE: Transaxial imaging was performed without the administration of intravenous contrast material. Multiplanar coronal and sagittal images were reformatted. Individualized dose optimization techniques were used for this CT. COMPARISON: None. FINDINGS: The previously seen spiculated irregular nodule with the small amount of air in the medial posterior aspect of the left upper lobe has increased in size. It presently measures 1.9 cm x 1.5 cm. Increased markings are seen in the left upper lobe as compared to prior study. Stable linear scarring at the left lung base. The previously seen nodule in the posterior medial segment of the left lower lobe as increased in size. It presently measures 1.5 cm x 1.3 cm. There is also evidence of a 0.8 cm x 1 cm nodule in the posterior aspect of the right lower lobe. These have increased in size as compared to prior study. There is a new nodule in the lateral aspect of the right middle lobe measuring 9 mm. Is also evidence of a new nodule measuring 4.3 mm in the posterior aspect of the right middle lobe abutting the right minor fissure as well as a new nodule measuring 6.2 mm in the anterior medial aspect of the left upper lobe. There is no demonstrated pleural abnormality. There are calcifications of the coronary arteries. Since prior study, there has been a progression of soft tissue density in the superior anterior mediastinum surrounding the aortic arch and origin of the great vessels. Normal hilar regions. Normal unenhanced pulmonary arteries. There is atherosclerotic calcification of the aortic arch with tortuosity and elongation of the aortic arch and descending thoracic aorta. There is demineralization of the thoracic spine. There is a 2.2 cm nodule in the right retrocrural level. CT/Chest without Contrast IMPRESSION: Increased size of the previously seen nodular densities in both lungs with appearance of new nodules as described. There has been a progression of the soft tissue density seen in the anterior mediastinum. Electronically Signed: Kamlesh Rhodes MD at 10:33 EDT , Service support ,
== END ==
PROVIDERS: PCP Internal Medicine; Referring Provider Internal Medicine; Visit Provider Internal Medicine
DX: C34.92 Malignant neoplasm of unspecified part of left bronchus or lung (principal); I82.401 Acute embolism and thrombosis of unspecified deep veins of right lower extremity; E11.21 Type 2 diabetes mellitus with diabetic nephropathy; E11.22 Type 2 diabetes mellitus with diabetic chronic kidney disease; N18.31 Chronic kidney disease, stage 3a
CPT/HCPCS: 36415; 71250; 85610

== ENCOUNTER 2021-03-14 15:47 | Outpatient (RCR) | payer MEDICARE, OTHER, SELFPAY ==
[2021-01-18 09:08] VITALS: BMI 20.4
[2021-02-28 08:31] LABS: International Normalized Ratio 1.9; Prothrombin Time (Protime)PT. 20.6 SECONDS (11.7-14.9)
[2021-03-07 09:05] LABS: International Normalized Ratio 2.2; Prothrombin Time (Protime)PT. 23.4 SECONDS (11.7-14.9)
[2021-03-14 16:49] LABS: International Normalized Ratio 2.1; Prothrombin Time (Protime)PT. 22.4 SECONDS (11.7-14.9)
== END 2021-03-24 23:59 ==
LOC: BIMLAB 15:47
PROVIDERS: PCP Internal Medicine; Referring Provider Internal Medicine; Visit Provider Internal Medicine
DX: I82.401 Acute embolism and thrombosis of unspecified deep veins of right lower extremity (principal); E11.21 Type 2 diabetes mellitus with diabetic nephropathy; E11.22 Type 2 diabetes mellitus with diabetic chronic kidney disease; N18.31 Chronic kidney disease, stage 3a
CPT/HCPCS: 36415; 85610

== ENCOUNTER → 2021-04-17 11:12 | Outpatient (CLI) | payer SELFPAY ==
[2021-04-17 12:27] LABS: Absolute Lymphocyte Count 1.39 X10^3/uL (0.83-4.51); Absolute Neutrophil Count 5.1 X10^3/uL (2.0-7.7); Basophil# 0.04 X10^3/uL; Basophil% 0.6 % (0-1); Eosinophil# 0.03 X10^3/uL; Eosinophils% 0.4 % (0-5); Hemoglobin 12.7 g/dL (12.0-15.0); Lymphocyte # 1.39 X10^3/ul (0.83-4.51); Lymphocyte % 19.4 % (19-41); Mean Corpuscular Hgb 28.5 pg (27.0-32.0); Mean Corpuscular Volume 92.1 fL (81-99); Mean Platelet Vol. 11.3 fl (6.2-12.0); Monocyte# 0.65 X10^3/uL; Monocyte% 9.1 % (0-10); NRBC Flagged by Analyzer 0 % (0-5); Neutrophil # 5.05 X10^3/uL (2.7-7.7); Neutrophil % 70.4 % (47-70); Platelet Count 200 K/mm3 (150-450); RBC Distribution Width CV 12.7 % (11.6-14.6); Red Blood Count 4.45 M/mm3 (4.2-5.4); White Blood Count 7.2 K/mm3 (4.4-11.0)
[2021-04-17 12:57] LABS: ALB/GLOB Ratio 0.7 RATIO (0.9-2.4); AST(SGOT) 16 U/L (15-37); Alanine Aminotransfer ALT/SGPT 30 U/L (13-56); Alkaline Phosphatase 110 U/L (45-117); Anion Gap 4 (5-15); BUN 33 mg/dL (7-18); BUN/Creat Ratio 33.6 RATIO (10-20); Calcium,Total 9.4 mg/dL (8.5-10.1); Chloride 103 mmol/L (98-107); Creatinine, Serum 0.98 mg/dL (0.55-1.02); EST Glomerular Filtration Rate 59 mL/min (>60); Est Glom Filt Rate - Afr Amer 71 mL/min (>60); Globulin 4.6 g/dL (2.2-4.2); Glucose 125 mg/dL (74-106); Iron 66 ug/dL (50-170); Iron Binding Capacity,Total 339 ug/dL (250-450); PERCENT IRON SATURATION 19.5 % (15.0-55.0); Potassium 4.4 mmol/L (3.5-5.1); Protein, Total 7.6 g/dL (6.4-8.2); Sodium Level 137 mmol/L (136-145)
[2021-04-17 12:58] LABS: Vitamin B12 1495 pg/mL (211-911)
== END ==
PROVIDERS: PCP Internal Medicine; Referring Provider Internal Medicine; Visit Provider Internal Medicine
DX: D64.9 Anemia, unspecified (principal); C34.92 Malignant neoplasm of unspecified part of left bronchus or lung; C78.00 Secondary malignant neoplasm of unspecified lung
CPT/HCPCS: 36415; 80053; 82607; 83540; 83550; 85025